=== PATIENT | female | born 1960 | race Caucasian/White ===

== ENCOUNTER 2023-02-04 08:44 | Outpatient (CLI) | payer BC, SELFPAY ==
--- NOTE | 2023-02-04 09:15 | CRLHL7_ITS ---
For Patients: As a result of the Century Cures Act, medical imaging exams and procedure reports are released immediately into your electronic medical record. You may view this report before your referring provider. If you have questions, please contact your health care provider. ULTRASOUND-GUIDED LEFT BREAST BIOPSY AND POST-BIOPSY MAMMOGRAM FOR CLIP PLACEMENT INDICATION: Mass upper outer quadrant LEFT breast. Ultrasound-guided biopsy for diagnostic purposes. Informed consent was obtained. Benefits and risks were discussed. Risks included pain, bleeding, infection, and the possibility of an unsuccessful or nondiagnostic biopsy. Post biopsy clip placement and post clip mammogram were also discussed with the patient. She agreed to proceed. [place] protocol was followed. TIME-OUT conducted just prior to starting procedure confirmed patient identity, site/side, procedure, patient position, and availability of correct equipment. Pause for cause was performed. The lesion is a 1.0 x 0.5 x 0.9 cm slightly lobulated somewhat oval-shaped hypoechoic solid mass at the 1 o`clock position 2 cm from the nipple. Utilizing sterile technique and 1 percent lidocaine for local anesthetic, a 14-gauge biopsy gun was utilized. Five passes were made into the lesion without difficulty. The patient tolerated the procedure well. No immediate complications. Subsequently, a clip was placed in the lesion after the five biopsies. A post procedure mammogram is pending. IMPRESSION: Technically successful ultrasound-guided biopsy of a lesion at the 1 o`clock position 2 cm from the nipple. No immediate complications. ACR not applicable Dictated by: Klaus Souza MD @02/04/2023 10:19:24 AM jj/Dictated by: Klaus Souza MD @ 02/04/2023 10:19:00 AM ----- ADDENDUM ----- The final pathology report demonstrates an invasive ductal carcinoma Kelsie grade III of III with a Kelsie score 8 of 9. The pathology report is concordant with the imaging findings. Dictated by Klaus Souza MD @ Feb 04 2023 10:19AM Signed by:?Klaus Souza MD @02/04/2023 11:08:09 AM (Electronically Signed)
--- NOTE | 2023-02-04 10:00 | CRLHL7_ITS ---
For Patients: As a result of the Cures Act, medical imaging exams and procedure reports are released immediately into your electronic medical record. You may view this report before your referring provider. If you have questions, please contact your health care provider. POST-BIOPSY MAMMOGRAM FOR CLIP PLACEMENT INDICATION: Follow-up LEFT breast biopsy. Clip placement. TECHNIQUE: Unilateral LEFT breast mammogram performed utilizing a CC and true ML view. FINDINGS: Breast Composition: There are areas of scattered fibroglandular density. In the upper outer quadrant of the LEFT breast 1 o`clock position 2 cm from the nipple is a lesion with a biopsy clip placed in the center of the lesion. IMPRESSION: LEFT biopsy clip placement. ACR not applicable Dictated by: Klaus Souza MD @02/04/2023 10:20:22 AM jj/Dictated by: Klaus Souza MD @ 02/04/2023 10:20:00 AM (Electronically Signed)
== END 2023-02-04 08:45 | disposition home or self-care (01) ==
LOC: US 08:47
PROVIDERS: PCP Family Medicine; Visit Provider Family Medicine
DX: C50.912 Malignant neoplasm of unspecified site of left female breast (principal); N63.20 Unspecified lump in the left breast, unspecified quadrant; R92.8 Other abnormal and inconclusive findings on diagnostic imaging of breast
CPT/HCPCS: 19083; 77065; 88305; 88341; 88342; 88360; 88361; A4648; A4649

== ENCOUNTER 2023-02-11 09:48 | Outpatient (CLI) | payer BC, SELFPAY ==
--- NOTE | 2023-02-11 10:15 | CRLHL7_ITS ---
For Patients: As a result of the Century Cures Act, medical imaging exams and procedure reports are released immediately into your electronic medical record. You may view this report before your referring provider. If you have questions, please contact your health care provider. BILATERAL BREAST MRI WITHOUT AND WITH GADOLINIUM CLINICAL HISTORY: Malignant neoplasm LEFT breast. INDICATION FOR BREAST MRI: Staging of newly diagnosed breast cancer and screening of contralateral breast. Regional lymph nodes will also be assessed. COMPARISON STUDIES: 01/23/2023 mammogram, 01/28/2023 LEFT breast diagnostic mammogram and ultrasound ultrasound-guided biopsy and post clip films 02/04/2023. CONTRAST: Dotarem 15 mL. TECHNIQUE: The patient was positioned prone using a breast coil. Multiple imaging sequences were obtained using 1-1.5 mm thick slices with no gap. The image sequences include T2-weighted STIR in the axial plane, T1-weighted nonfat-saturated gradient echo in the axial plane, pre- and post-contrast T1-weighted FLASH 3D with fat suppression in the axial plane, and T1-weighted FLASH high resolution 3D with fat suppression in the sagittal plane. Image post-processing was performed on a [employer] workstation. Complex 3D rendering including maximum intensity projections (MIPS) and volumetric renderings were obtained to optimize visualization of the extent of pathology and relationship to the nipple, skin, and chest wall. This aids in determining feasibility of breast conservation surgery. Subtraction, multiplanar reconstruction, mean curve determination, and angiogenesis mapping were also performed. The study was technically adequate. FINDINGS: Amount of Fibroglandular Tissue: Scattered fibroglandular. Breast Background Enhancement: Minimal. RIGHT Breast: No suspicious mass or non-mass enhancement. LEFT Breast: New breast cancer visualized as a 1 o`clock position, anterior depth, solid irregular mass containing marker clip placed at biopsy. Measurement 1 x 0.8 x 1 cm in size. The remainder of the left breast is negative. Lymph Nodes: No enlarged lymph nodes. IMPRESSIONS AND RECOMMENDATIONS: New breast cancer on MR correlates with mammogram and ultrasound. In the LEFT breast at 1 o`clock position, anterior depth the cancer is identified as an enhancing mass measurement 1 x 0.8 x 1 cm size. Marker clip visualized within the mass. The RIGHT breast is negative. No enlarged lymph nodes. BI-RADS Category 6: Known biopsy-proven malignancy Dictated by Kimber Ge MD @ 02/12/2023 3:31:39 PM juice/Dictated by: Kimber Ge MD @ 02/12/2023 3:31:00 PM (Electronically Signed)
== END 2023-02-11 09:49 | disposition home or self-care (01) ==
LOC: MRI 09:50
PROVIDERS: PCP Family Medicine; Visit Provider Surgery
DX: C50.912 Malignant neoplasm of unspecified site of left female breast (principal)
CPT/HCPCS: 77049; A9575

== ENCOUNTER 2023-02-27 05:57 | Day surgery (SDC) | payer BC, SELFPAY ==
[2023-02-27] MEDS: LACTATED RINGERS 1000 ML 1,000 ML 100 ML IV (06:25)
[2023-02-27] MEDS: SODIUM CHLORIDE 0.9 % (FLUSH) 10 ML SYRINGE IVF (06:34)
[2023-02-27 06:35] VITALS: BP 129/79; PULSE 70; RESP 16; TEMP 36.6; O2SAT 95; BMI 30.5
[2023-02-27 06:43] LABS: Basophils Absolute Auto 0.03 K/uL (0.00-0.30); Basophils Percent Auto 0.4 % (0.0-3.0); Eosinophils Absolute Auto 0.29 K/uL (0.00-0.50); Eosinophils Percent Auto 3.8 % (0.0-7.0); Hematocrit 42.9 % (33.0-51.0); Immature Granulocytes Abs Auto 0.01 K/uL (0.00-0.30); Immature Granulocytes Pct Auto 0.1 %; Lymphocytes Absolute Auto 2.83 K/uL (0.90-2.90); Lymphocytes Percent Auto 37.1 % (20-44); Mean Corpuscular HGB Conc 33 gm/dL (32-36); Mean Corpuscular Hemoglobin 31 pg (26-34); Mean Corpuscular Volume 96 fL (80-100); Monocytes Percent Auto 7.3 % (0.0-11.0); Neutrophils Percent Auto 51.3 % (42.0-72.0); Platelet Count* 221 K/uL (140-440); RDW Coefficient of Variation % 12.5 % (11.5-15.5); Red Blood Count 4.47 m/uL (4.00-5.20); White Blood Count* 7.62 K/uL (4.50-11.00)
[2023-02-27 06:47] LABS: Slide Review Reflex No
[2023-02-27 07:09] LABS: Chloride* 103 mmol/L (96-114)
[2023-02-27 07:10] LABS: Albumin* 4.3 g/dL (3.3-5.0); Sodium* 139 mmol/L (135-149)
[2023-02-27 07:13] LABS: Alanine Aminotransferase* 18 U/L (4-35); Alkaline Phosphatase* 67 U/L (40-150); Aspartate Amino Transferase* 24 U/L (12-35); Bilirubin Total* 0.3 mg/dL (0.1-1.5); Blood Urea Nitrogen* 16 mg/dL (7-30); Calcium* 9.1 mg/dL (8.4-10.6); Carbon Dioxide* 29 mmol/L (20-32); Creatinine* 0.7 mg/dL (0.5-1.5); Est. Creatinine Clearance* 53.91; Estimated Glomerular Filt Rate 97 ml/min; Glucose* 108 mg/dL (60-115); Total Protein* 7.3 g/dL (6.0-8.3)
--- NOTE | 2023-02-27 07:18 | W.ANESCHARGE ---
Anesthesia Charges Start Date/Time Anesthesia Start Date: 02/27/23 Anesthesia Start Time: 07:22 Stop Date/Time Anesthesia Stop Date: 02/27/23 Anesthesia Stop Time: 08:24
[2023-02-27] MEDS: CEFAZOLIN 2 GM INJ IVP (07:23)
--- NOTE | 2023-02-27 07:30 | CRLHL7_ITS ---
For Patients: As a result of the Century Cures Act, medical imaging exams and procedure reports are released immediately into your electronic medical record. You may view this report before your referring provider. If you have questions, please contact your health care provider. Indication: Port placement Technique: AP fluoroscopic image of the right upper chest. Fluoroscopic time 29.7 seconds. IMPRESSION: Fluoroscopic guided port placement. Dictated by Arnulfo Briceno MD @ 02/27/2023 8:51:25 AM (Electronically Signed)
[2023-02-27] MEDS: LIDOCAINE 1 % PF 30 ML INJECTION (07:40)
[2023-02-27] MEDS: BUPIVACAINE 0.5% 30 ML INJECTION (07:40)
[2023-02-27] MEDS: 0.9 % SODIUM CHLORIDE 50 ml INJECTION (07:53)
[2023-02-27] MEDS: HEPARIN 500 UNIT/5 ML SYRINGE IVF (08:05)
--- NOTE | 2023-02-27 08:15 | CRLHL7_ITS ---
For Patients: As a result of the Century Cures Act, medical imaging exams and procedure reports are released immediately into your electronic medical record. You may view this report before your referring provider. If you have questions, please contact your health care provider. INDICATION: POST PORT PLACEMENT TECHNIQUE: Chest 1 view COMPARISON: None FINDINGS: Right-sided Port-A-Cath is present with the tip in the mid SVC. No pneumothorax. Lungs clear. IMPRESSION: Placement of Port-A-Cath without pneumothorax. Dictated by Arnulfo Briceno MD @ 02/27/2023 8:57:41 AM (Electronically Signed)
--- NOTE | 2023-02-27 08:20 | PM.GSPRC ---
Operative Note Date of procedure: 02/27/23 Pre-op diagnosis: Invasive ductal carcinoma, left breast Post-op diagnosis: Same Type of Procedure: Right internal jugular port a catheter placement Indications: Patient is a 62-year-old female with new diagnosis invasive ductal carcinoma. She had a consultation with Oncology, who recommended a course of chemotherapy. Risks and benefits of port a catheter placement were discussed at length with the patient. Risks included, but were not limited to: Bleeding, infection, risk of damage to surrounding structures and possible need for additional procedures. All questions and concerns were addressed with patient agreeing to proceed. Procedure Description: After discussing the risks and benefits of the procedure, the patient signed informed consent.? The operative site was marked and the patient was brought to the operating room and placed on the operating table in supine position.? Care was taken to pad the patient's pressure points.?? The patient was then sedated by anesthesia.?? The operative site was then prepped and draped in the usual sterile fashion.? A time-out was then performed. The patient's right internal jugular vein was visualized using ultrasound. Local anesthetic was injected into the neck skin above the vein. A small skin aissatou was made with an 11 blade. The vein was accessed percutaneously via Seldinger technique using ultrasound guidance. Next local anesthetic was injected into the skin below the clavicle and along the proposed tract to the neck incision. A skin incision was then made with a 15 blade and a pocket created in the chest wall with cautery. A tunneler was then used to thread the catheter from the chest wall pocket to the neck incision. Once this was done fluoroscopy was brought into the field. Over the wire the tract was dilated using fluoroscopy. The wire and the dilator were then removed leaving the sheath intact in the vein. Through this the catheter was threaded. Using fluoroscopy the catheter was positioned into the distal SVC. The catheter was noted to flush and aspirate easily. The catheter was then connected to the port. The port was placed in the pocket and secured in place with two 2 0 Prolene stay suture. It was noted to flush and aspirate easily. This was then locked with heparinized saline. The skin was closed with absorbable suture. Sterile dressings were applied. Instrument sponge and needle counts were correct at the end of the case. The patient was woken and taken to the PACU in stable condition. Findings: Compressible right internal jugular vein. Anesthesia: MAC and local Surgeon: Enedina Infante MD Estimated blood loss (mL): 5 Condition: stable Disposition: same day
[2023-02-27 08:27] VITALS: BP 132/76; PULSE 74; RESP 16; TEMP 36.3; O2SAT 96
--- NOTE | 2023-02-27 08:28 | W.ANESCHARGE ---
Anesthesia Charges Start Date/Time Anesthesia Start Date: 02/27/23 Anesthesia Start Time: 07:22 Stop Date/Time Anesthesia Stop Date: 02/27/23 Anesthesia Stop Time: 08:24
[2023-02-27 08:45] VITALS: BP 130/72; PULSE 70; RESP 16; O2SAT 96
[2023-02-27 09:00] VITALS: BP 131/73; PULSE 72; RESP 16; O2SAT 96
== END 2023-02-27 09:04 | disposition home or self-care (01) ==
PROVIDERS: Internal Medicine Hematology & Oncology; PCP Family Medicine; Visit Provider Surgery
PROC: (CPT 36561; principal; 2023-02-27 07:30)
DX: Z45.2 Encounter for adjustment and management of vascular access device (principal); C50.912 Malignant neoplasm of unspecified site of left female breast; Z17.1 Estrogen receptor negative status [ER-]
CPT/HCPCS: 36561; 00532; 36415; 71045; 80053; 85025; C1788; J0665; J0690; J1642; J2001; J2250; J2704; J3010; J3490; J7120

== ENCOUNTER 2023-06-12 06:34 | Day surgery (SDC) | payer BC, SELFPAY ==
[2023-06-12] MEDS: SODIUM CHLORIDE 0.9 % (FLUSH) 10 ML SYRINGE IVF (07:29)
--- NOTE | 2023-06-12 08:00 | CRLHL7_ITS ---
For Patients: As a result of the Century Cures Act, medical imaging exams and procedure reports are released immediately into your electronic medical record. You may view this report before your referring provider. If you have questions, please contact your health care provider. SENTINEL LYMPH NODE LOCALIZATION INJECTION CLINICAL HISTORY: Left breast cancer LATERALITY: Left breast TECHNIQUE: With the patient supine, the periareolar left breast was cleansed with alcohol. 0.78mCi of 93b-[id number] Sulfur Colloid in a volume of 1 cc was injected intradermal in the upper outer periareolar breast with a 25-gauge needle. The patient tolerated the procedure well and there were no immediate complications. IMPRESSION: Injection for sentinel lymph node of the left breast. Dictated by Arnulfo Briceno MD @ 06/12/2023 2:53:53 PM (Electronically Signed)
--- NOTE | 2023-06-12 08:15 | CRLHL7_ITS ---
For Patients: As a result of the Century Cures Act, medical imaging exams and procedure reports are released immediately into your electronic medical record. You may view this report before your referring provider. If you have questions, please contact your health care provider. BREAST WIRE LOCALIZATION USING ULTRASOUND GUIDANCE CLINICAL HISTORY: LEFT breast cancer, presents for lumpectomy. LATERALITY: LEFT breast. LESION: Previously biopsied lesion 1 o`clock 2 cm from the nipple. LOCALIZATION WIRE: [place] hookwire. TECHNIQUE: The localization wire was placed using real-time ultrasound guidance with image documentation. Cranial-caudal and medial-lateral digital mammograms were obtained after localization wire placement. CONSENT and TIME OUT: The procedure, risks, and alternatives were explained to the patient and a consent was signed. [place] Protocol was followed including pre-procedure verification that relevant information/documentation was available, reviewed and properly matched to the patient; consent accurate and complete; and equipment and supplies available. Time Out was conducted just prior to starting procedure to verify the four required elements: patient identity, correct side/site marked (if applicable), procedure, relevant images/results properly labeled and displayed (if applicable). PROCEDURE: The skin was prepped with ChloraPrep and 3 cc of 1% lidocaine was injected for local anesthesia. The localization wire was placed within or near the targeted breast lesion using ultrasound guidance. The patient tolerated the procedure well. PROXIMITY OF WIRE TO LESION: Immediately adjacent to the biopsy clip which is located within the residual lesion. IMPRESSION: Successful breast wire localization. ACR not applicable Dictated by Arnulfo Briceno MD @ 06/12/2023 10:06:00 AM jj/Dictated by: Arnulfo Briceno MD @ 06/12/2023 10:05:00 AM (Electronically Signed)
[2023-06-12] MEDS: LACTATED RINGERS 1000 ML 1,000 ML 100 ML IV (08:50)
--- NOTE | 2023-06-12 09:00 | CRLHL7_ITS ---
For Patients: As a result of the Cures Act, medical imaging exams and procedure reports are released immediately into your electronic medical record. You may view this report before your referring provider. If you have questions, please contact your health care provider. PLEASE SEE ULTRASOUND-GUIDED WIRE LOCALIZATION PERFORMED SAME DAY CRL:juice boes/Dictated by: Arnulfo Briceno MD @ 06/12/2023 10:06:00 AM (Electronically Signed)
--- NOTE | 2023-06-12 09:30 | CRLHL7_ITS ---
For Patients: As a result of the Cures Act, medical imaging exams and procedure reports are released immediately into your electronic medical record. You may view this report before your referring provider. If you have questions, please contact your health care provider. LEFT BREAST SPECIMEN RADIOGRAPH CLINICAL HISTORY: LEFT breast lumpectomy, LEFT breast cancer. COMPARISON: 01/28/2023, 06/12/2023. FINDINGS: Two-views specimen submitted. Specimen contains the residual mass, the biopsy clip and the localization wire. IMPRESSION: Specimen contains the residual lesion, the biopsy clip and the localization wire. ACR not applicable Dictated by Arnulfo Briceno MD @ 06/12/2023 11:14:57 AM jj/Dictated by: Arnulfo Briceno MD @ 06/12/2023 11:14:00 AM (Electronically Signed)
[2023-06-12] MEDS: ISOSULFAN BLUE 5 ML VIAL INJECTION (10:14)
[2023-06-12] MEDS: CEFAZOLIN 2 GM INJ IVP (10:15)
--- NOTE | 2023-06-12 11:12 | W.ANESCHARGE ---
Anesthesia Charges Start Date/Time Anesthesia Start Date: 06/12/23 Anesthesia Start Time: 10:01 Stop Date/Time Anesthesia Stop Date: 06/12/23 Anesthesia Stop Time: 11:48
[2023-06-12] MEDS: BUPIVACAINE 0.25% 30 ML INJECTION (11:23)
--- NOTE | 2023-06-12 11:35 | P.GSOP_ITS ---
Operative Note Pre-op diagnosis: Invasive ductal carcinoma, left breast Post-op diagnosis: Same Type of Procedure: 1. Injection of radionucleotide tracer 2. Lumpectomy, left breast 3. Identification and removal of sentinel lymph node. Indications: Patient is a 63-year-old female with a diagnosed invasive ductal carcinoma of the left breast. Due to the pathologic characteristics of the tumor she initially underwent neoadjuvant treatment with chemotherapy. After the completion of her neoadjuvant treatment it was recommended that she pursue surgery. Different surgical options were reviewed with the patient, please see consultation for full discussion. Risks and benefits of operative intervention were discussed at length with the patient. Risks included but was not limited to: Bleeding, infection, risk of damage to surrounding structures, possible need for additional procedures, possibility of positive margins, lymphedema with removal of any axillary lymph nodes were injury to surrounding structures of the axilla and postoperative complications such as pneumonia, pulmonary emboli or NV. All questions and concerns were addressed with the patient agreeing to proceed. Procedure Description: Prior to arrival in the operating room, I injected the patient with a radionucleotide tracer in PACU. The patient was taken to radiology where a wire was placed to localize the previously placed clip. The patient was then brought to the operating room where anesthesia was induced. I injected 2 ml of lymphazurin blue and performed breast massage for a period of 5 minutes. The left breast and axilla were prepped and draped in the usual sterile fashion. Timeout was confirmed. Local anesthesia was infiltrated into a curvilinear incision in the 2:00 o clock position around the areola and near the location of the tip of the wire. Using electrocautery, the segment of breast tissue containing the tip of the wire was excised. This was sent for evaluation. Radiology imaging was performed and confirmed that the clip and wire were present within the specimen. Pathology then called back and confirmed that there was no presence of any residual tumor and margins were negative. We then elected to perform the sentinel node aspect of the procedure. Using the neoprobe, the area of maximal counts was identified. Local anesthesia was infiltrated into the skin and an incision was made. This was carried down to the subcutaneous tissue using electrocautery. Using a combination of blunt dissection and electrocautery, a hot and blue node was resected. The lymphatic pedicle was ligated with a 3-0 Vicryl tie. No additional nodes were identified. These were sent to pathology for permanent evaluation. The axillary wound was irrigated. Michael was placed within the axillary cavity. The wounds were then closed in layers using absorbable suture, and Dermbond was placed over the wounds. The patient was awakened without incident and taken to PACU in stable condition. Sponge, needle and instrument counts were correct x3 at the termination of the case. Findings: Wire localization of left breast cancer, clip and wire confirmed on radiologic imaging with margins negative. One sentinel lymph node identified and removed, sent for permanent evaluation. Anesthesia: MAC and local Surgeon: Enedina Infante MD Estimated blood loss (mL): 5 Additional Specimen Information: 1. Left breast lumpectomy 2. Left axillary sentinel node Disposition: PACU Date of procedure: 06/12/23 [place] Node Biopsy for Breast Cancer Operation Performed with Curative Intent: Yes Tracers used to Identify sentinel nodes in the upfront surgery (non-neoadjuvant) setting: N/A Tracers used to identify sentinel nodes in the neoadjuvant setting: Dye and Radioactive Tracer All nodes (colored or non-colored) present at the end of a dye filled lymphatic channel were removed: Yes All significantly radioactive nodes were removed: Yes All palpably suspicious nodes were removed: Yes Biopsy proven positive nodes marked with clips prior to chemotherapy were identified and removed: Not Applicable
[2023-06-12 11:45] VITALS: BP 136/75; PULSE 73; RESP 16; TEMP 36.4; O2SAT 94
[2023-06-12 12:00] VITALS: BP 148/76; PULSE 65; RESP 16; O2SAT 96
[2023-06-12] MEDS: ACETAMINOPHEN 325 MG TABLET 650 MG PO (12:00)
--- NOTE | 2023-06-12 12:07 | W.ANESCHARGE ---
Anesthesia Charges Start Date/Time Anesthesia Start Date: 06/12/23 Anesthesia Start Time: 10:01 Stop Date/Time Anesthesia Stop Date: 06/12/23 Anesthesia Stop Time: 11:48
[2023-06-12 12:14] VITALS: BP 148/76; PULSE 70; RESP 16; O2SAT 94
== END 2023-06-12 13:02 | disposition home or self-care (01) ==
PROVIDERS: PCP Family Medicine; Visit Provider Surgery
PROC: (CPT 19125; principal; 2023-06-12 09:30)
PROC: (CPT 19125; 2023-06-12 09:30)
DX: C50.912 Malignant neoplasm of unspecified site of left female breast (principal)
CPT/HCPCS: 19125; 38500; 00400; 01610; 19285; 38792; 77065; 88307; A9270; A9541; C1769; J0665; J0690; J1100; J1885; J2250; J2371; J2704; J3010; J3490; J7120

== ENCOUNTER 2023-06-30 14:14 | Outpatient (RCR) | payer BC, SELFPAY ==
--- NOTE | 2023-02-24 13:57 | URNOTE ---
Per [facility] on behalf of [employer], Prior auth is not required for Cyclophosphamide (J9070), Docetaxel (J9171), Palonosetron (J2469). Pegfilgrastim (J2506) has been approved 03/03/2023-05/26/2023 for 4 doses. Order/ref #[id number]
--- NOTE | 2023-02-24 14:30 | ONC.NURNOTE ---
I met with patient for chemotherapy teaching. Contents of the chemotherapy binder were reviewed. Side effects of TC+Neulasta discussed. Patient instructed on what to report and how to report concerns to provider. Patient verbalizes understanding of plan of care.
[2023-03-03 08:14] VITALS: BP 131/81; PULSE 73; RESP 16; TEMP 36.2; O2SAT 97
[2023-03-03] MEDS: PALONOSETRON 0.25 MG/5 ML inj IV (08:57)
[2023-03-03] MEDS: dexAMETHasone 20 MG in 0.9 % SODIUM CHLORIDE 100 ml 100 ML 408 MG IVPB (09:00)
[2023-03-04 11:17] VITALS: BP 120/73; PULSE 73; RESP 16; TEMP 36.1; O2SAT 96
[2023-03-04] MEDS: PEGFILGRASTIM 6 MG/0.6 ML SYRINGE SUBCUT (11:50)
--- NOTE | 2023-03-07 11:48 | ONC.NURNOTE ---
Pt LM reporting her mouth is coated white on tongue and roof of mouth and is stinging; she is concerned about oral thrush and is asking about Magic Mouthwash. Called pt back; in the meantime she had contacted her dentist, who prescribed Nystatin 100,000 units/ml, swish and spit 4-5 mL QID. Pt has started this and struggling to tolerate the taste, which is triggering nausea. Recommended pt take Prochlorperazine at least 30 min prior to dose to lower risk of nausea and to begin NaCl/NaCHO3 swishes at least QID. Reviewed home management of mucositis; she relays she is drinking 64oz/day fluids and is eating cottage cheese, eggs and toast with butter. Cautioned against sharp, spicy, acidic foods; referred to resources in new patient binder. Pt agreeable to this plan.
[2023-03-25 08:11] VITALS: BP 124/72; PULSE 78; RESP 16; TEMP 35.6; O2SAT 95
[2023-03-25 08:35] LABS: Basophils Absolute Auto 0.06 K/uL (0.00-0.30); Basophils Percent Auto 0.7 % (0.0-3.0); Eosinophils Absolute Auto 0.13 K/uL (0.00-0.50); Eosinophils Percent Auto 1.5 % (0.0-7.0); Hematocrit 36.2 % (33.0-51.0); Hemoglobin* 11.8 gm/dL (12.0-16.0); Immature Granulocytes Abs Auto 0.02 K/uL (0.00-0.30); Immature Granulocytes Pct Auto 0.2 %; Lymphocytes Absolute Auto 2.02 K/uL (0.90-2.90); Mean Corpuscular HGB Conc 33 gm/dL (32-36); Mean Corpuscular Hemoglobin 31 pg (26-34); Mean Corpuscular Volume 96 fL (80-100); Monocytes Percent Auto 8.5 % (0.0-11.0); Neutrophils Absolute Auto 5.48 K/uL (1.7-7.0); Neutrophils Percent Auto 65.1 % (42.0-72.0); Platelet Count* 342 K/uL (140-440); RDW Coefficient of Variation % 13.3 % (11.5-15.5); Red Blood Count 3.76 m/uL (4.00-5.20); White Blood Count* 8.43 K/uL (4.50-11.00)
[2023-03-25 08:43] LABS: Slide Review Reflex No
[2023-03-25 08:47] LABS: Albumin* 3.9 g/dL (3.3-5.0)
[2023-03-25 08:48] LABS: Chloride* 107 mmol/L (96-114); Potassium* 3.8 mmol/L (3.6-5.1); Sodium* 138 mmol/L (135-149)
[2023-03-25 08:50] LABS: Aspartate Amino Transferase* 24 U/L (12-35); Bilirubin Total* 0.3 mg/dL (0.1-1.5); Carbon Dioxide* 24 mmol/L (20-32); Creatinine* 0.6 mg/dL (0.5-1.5); Estimated Glomerular Filt Rate 101 ml/min; Total Protein* 6.4 g/dL (6.0-8.3)
[2023-03-25 08:51] LABS: Alanine Aminotransferase* 22 U/L (4-35); Alkaline Phosphatase* 66 U/L (40-150); Blood Urea Nitrogen* 15 mg/dL (7-30); Calcium* 8.8 mg/dL (8.4-10.6); Glucose* 92 mg/dL (60-115)
[2023-03-25] MEDS: GRANISETRON 1 MG/ML inj IVP (10:52)
[2023-03-25] MEDS: dexAMETHasone 20 MG in 0.9 % SODIUM CHLORIDE 100 ml 100 ML 408 MG IVPB (11:07)
[2023-03-25] MEDS: FAMOTIDINE 10 MG/ML inj 20 MG IVP (11:08)
--- NOTE | 2023-03-25 16:11 | ONC.NURNOTE ---
Pt here for C2D1 TC; saw Richa Carcamo APRN as scheduled. Pt had complex nausea; plan as follows: Premeds: Kytril given instead of Aloxi; pushed slowly. Pt had brief MARIANO but self-resolved in minutes. Dexamethasone as previously ordered. Added Famotidine 20mg IVP. At home for nausea: Compazine 5 mg before meals/up to q3hrs throughout daytime, as Compazine 10 mg had too many side effects and wore off too quickly. Cont x 4 days, then proceed as needed. Per pt, avoiding Zofran d/t migraine history/triggers. Add Famotidine daily in AM; reviewed to take on empty stomach with glass of water; ok to add additional evening dose 30 min before supper. Instructed pt to contact us if feeling GERD symptoms for consideration of additional anti-acid meds. Add Olanzapine @[facility] x 4 nights beginning night of chemo; pt to try 2.5-5mg per preference; reviewed to avoid using Lorazepam at some time. Following conclusion of Olanzapine, plan to resume Lorazepam @[facility] as needed. Add Dexamethasone PO BID beginning day after chemo x 3 days; instructed to take with food to minimize GI side effects. At home for bone aches r/t Neulasta: Continue Claritin and Tylenol daily x ~2 weeks, as pt noted worst bone aches in week 2 after chemo last cycle. Calendar made with these instructions; copy in chart. Reinforced that if pt is having nausea to the point of not eating or having emesis/retching, or if having severe bone aches, to call [facility] for assessment of dehydration and consideration of benefit of IV fluids; discuss with Richa Carcamo APRN on a situational basis.
[2023-03-26 13:30] VITALS: BP 95/58; PULSE 69; RESP 16; TEMP 36.2; O2SAT 95
[2023-03-26] MEDS: PEGFILGRASTIM 6 MG/0.6 ML SYRINGE SUBCUT (13:32)
--- NOTE | 2023-03-28 09:46 | ONC.NURNOTE ---
Pt called to check in. She is feeling well and denies nausea or thrush. She took anti-emetics as scheduled Fri and . She had some constipation that is resolving. She is taking Pepcid, Claritin and Tylenol. She will call early next week to check-in to assess side effects.
[2023-04-15 07:54] VITALS: BP 113/69; PULSE 70; RESP 16; TEMP 35.7
[2023-04-15 08:18] LABS: Basophils Absolute Auto 0.06 K/uL (0.00-0.30); Basophils Percent Auto 0.8 % (0.0-3.0); Eosinophils Absolute Auto 0.07 K/uL (0.00-0.50); Eosinophils Percent Auto 0.9 % (0.0-7.0); Hematocrit 34.2 % (33.0-51.0); Hemoglobin* 10.9 gm/dL (12.0-16.0); Immature Granulocytes Abs Auto 0.01 K/uL (0.00-0.30); Immature Granulocytes Pct Auto 0.1 %; Lymphocytes Absolute Auto 1.75 K/uL (0.90-2.90); Lymphocytes Percent Auto 22.1 % (20-44); Mean Corpuscular HGB Conc 32 gm/dL (32-36); Mean Corpuscular Hemoglobin 32 pg (26-34); Mean Corpuscular Volume 99 fL (80-100); Monocytes Percent Auto 8.2 % (0.0-11.0); Neutrophils Absolute Auto 5.39 K/uL (1.7-7.0); Neutrophils Percent Auto 67.9 % (42.0-72.0); Platelet Count* 282 K/uL (140-440); RDW Coefficient of Variation % 14.9 % (11.5-15.5); Red Blood Count 3.44 m/uL (4.00-5.20); White Blood Count* 7.93 K/uL (4.50-11.00)
[2023-04-15 08:23] LABS: Slide Review Reflex No
[2023-04-15 08:37] LABS: Albumin* 3.7 g/dL (3.3-5.0); Chloride* 106 mmol/L (96-114)
[2023-04-15 08:38] LABS: Sodium* 137 mmol/L (135-149)
[2023-04-15 08:40] LABS: Anion Gap 5 mEq/L (7-15); Aspartate Amino Transferase* 22 U/L (12-35); Bilirubin Total* 0.4 mg/dL (0.1-1.5); Carbon Dioxide* 26 mmol/L (20-32); Creatinine* 0.5 mg/dL (0.5-1.5); Estimated Glomerular Filt Rate 105 ml/min; Total Protein* 6.3 g/dL (6.0-8.3)
[2023-04-15 08:41] LABS: Alanine Aminotransferase* 18 U/L (4-35); Alkaline Phosphatase* 72 U/L (40-150); Blood Urea Nitrogen* 13 mg/dL (7-30); Calcium* 8.6 mg/dL (8.4-10.6); Glucose* 95 mg/dL (60-115)
[2023-04-15] MEDS: GRANISETRON 1 MG/ML inj IVP (09:10)
[2023-04-15] MEDS: dexAMETHasone 20 MG in 0.9 % SODIUM CHLORIDE 100 ml 100 ML 408 MG IVPB (09:10)
[2023-04-15] MEDS: FAMOTIDINE 10 MG/ML inj 20 MG IVP (09:53)
[2023-04-16 14:50] VITALS: BP 112/65; PULSE 82; RESP 16; TEMP 35.7; O2SAT 96
[2023-04-16] MEDS: PEGFILGRASTIM 6 MG/0.6 ML SYRINGE SUBCUT (15:19)
[2023-05-05 09:11] LABS: Basophils Percent Auto 0.5 % (0.0-3.0); Eosinophils Percent Auto 0.3 % (0.0-7.0); Hematocrit 34.4 % (33.0-51.0); Hemoglobin* 11.1 gm/dL (12.0-16.0); Immature Granulocytes Pct Auto 0.3 %; Lymphocytes Percent Auto 20.2 % (20-44); Mean Corpuscular HGB Conc 32 gm/dL (32-36); Mean Corpuscular Hemoglobin 32 pg (26-34); Mean Corpuscular Volume 99 fL (80-100); Monocytes Percent Auto 7.9 % (0.0-11.0); Neutrophils Percent Auto 70.8 % (42.0-72.0); Platelet Count* 323 K/uL (140-440); RDW Coefficient of Variation % 15.6 % (11.5-15.5); Red Blood Count 3.48 m/uL (4.00-5.20); White Blood Count* 11.59 K/uL (4.50-11.00)
[2023-05-05 09:23] LABS: Slide Review Reflex No
[2023-05-05 09:29] LABS: Chloride* 104 mmol/L (96-114); Potassium* 4.1 mmol/L (3.6-5.1); Sodium* 137 mmol/L (135-149)
[2023-05-05 09:31] LABS: Anion Gap 6 mEq/L (7-15); Aspartate Amino Transferase* 26 U/L (12-35); Bilirubin Total* 0.3 mg/dL (0.1-1.5); Carbon Dioxide* 27 mmol/L (20-32); Creatinine* 0.6 mg/dL (0.5-1.5); Estimated Glomerular Filt Rate 101 ml/min
[2023-05-05 09:32] LABS: Alanine Aminotransferase* 18 U/L (4-35); Alkaline Phosphatase* 76 U/L (40-150); Blood Urea Nitrogen* 15 mg/dL (7-30); Calcium* 9.6 mg/dL (8.4-10.6); Glucose* 97 mg/dL (60-115)
[2023-05-06 07:56] VITALS: BP 99/64; PULSE 83; RESP 16; TEMP 35.8; O2SAT 96
[2023-05-06] MEDS: GRANISETRON 1 MG/ML inj IVP (08:17)
[2023-05-06] MEDS: dexAMETHasone 20 MG in 0.9 % SODIUM CHLORIDE 100 ml 100 ML 408 MG IVPB (08:17)
[2023-05-06] MEDS: FAMOTIDINE 10 MG/ML inj 20 MG IVP (08:17)
[2023-05-07 13:01] VITALS: BP 101/58; PULSE 86; RESP 18; TEMP 36.4; O2SAT 95
[2023-05-07] MEDS: PEGFILGRASTIM 6 MG/0.6 ML SYRINGE SUBCUT (13:03)
== END 2023-08-19 23:59 | disposition home or self-care (01) ==
LOC: CCIC 14:14
PROVIDERS: Clinical Nurse Specialist; PCP Family Medicine; Referring Provider Family Medicine; Visit Provider Internal Medicine Hematology & Oncology
DX: C50.912 Malignant neoplasm of unspecified site of left female breast (principal); Z17.1 Estrogen receptor negative status [ER-]
CPT/HCPCS: 36415; 36591; 80053; 85025; 96372; 96376; 96411; 96413; 96415; 96417; 99202; 99205; 99211; 99212; 99214; 99215; J2506; J9070; J1100; J1626; J2469; J7050; J9171; S0028

== ENCOUNTER 2023-12-08 09:50 | Outpatient (RCR) | payer BC, SELFPAY | END 2024-02-16 23:59 | disposition home or self-care (01) | LOC: CCIC 09:50 | PROVIDERS: PCP Family Medicine; Referring Provider Family Medicine; Visit Provider Physician Assistant | DX: C50.912 Malignant neoplasm of unspecified site of left female breast (principal); Z17.1 Estrogen receptor negative status [ER-] | CPT/HCPCS: 99213; G0463 ==

== ENCOUNTER 2023-12-18 10:51 | Inpatient (IN) | payer BC, SELFPAY ==
[2023-12-18] VITALS (10 sets, daily range): BP systolic 121–147; BP diastolic 51–76; PULSE 76–105; RESP 12–24; TEMP 36.5–37.6; O2SAT 90–96; BMI 29.8; BMI 29.5
--- NOTE | 2023-12-18 11:06 | ED_ITS ---
HPI - Fever General Time Seen by Provider: 11:07 Date Seen: 12/18/23 Chief Complaint: Fever Stated Complaint: Fever, congested for a week Time Seen by Provider: 12/18/23 11:06 Source: patient Mode of arrival: ambulatory Limitations: no limitations History of Present Illness HPI Narrative: Audrey is a 63-year-old female with history of breast cancer status post ra diation and chemotherapy, multiple medication allergies who comes to the emergency room for evaluation of ongoing cough and fever x1 week. Patient notes the onset of a productive cough, runny nose and fever 1 week ago. Since that time she has had continued fever and last night and noted that it was 103.4 orally and this morning 102. She has also had associated diarrhea. She denies dysuria or vomiting. She has not been able to take a lot p.o. and has no appetite. She has not had a sore throat. She denies history of lung disease, tobacco use or COPD. She denies any chest pain. Patient notes that she has seems somewhat confused. Her family has told her this and she states that she noticed this when she was trying to text somebody. Nursing notes that O2 sats were at 88% in triage transiently but then with some deep breathing improved to 92%. Related Data Home Medications Medication Instructions Recorded Confirmed cholecalciferol (vitamin D3) 10 See Rx Instructions PO QDAY 02/20/23 12/18/23 mcg (400 unit) tablet acetaminophen 500 mg tablet 500 mg PO Q6H PRN 06/30/23 12/18/23 (Tylenol Extra Strength) Allergies Allergy/AdvReac Type Severity Reaction Status Date / Time ciprofloxacin Allergy Mild Joint Pain Verified 12/08/23 09:47 nickel Allergy Mild Hives Verified 12/08/23 09:47 Sulfa (Sulfonamide Allergy Mild Nausea Verified 12/08/23 09:47 Antibiotics) zolpidem [From Ambien] Allergy Mild Headache Verified 12/08/23 09:47 sodium lauryl sulfate Allergy Unknown Verified 12/08/23 09:47 Streptococcus vaccine Allergy Unknown Verified 12/08/23 09:47 adhesive Allergy Verified 12/08/23 09:47 copper Allergy Verified 12/08/23 09:47 Penicillins Allergy Hives Verified 12/08/23 09:47 ondansetron [From Zofran] AdvReac Severe Headache Verified 04/22/24 09:47 gluten AdvReac Mild Verified 12/08/23 09:47 sumatriptan [From Imitrex] AdvReac Mild Verified 12/08/23 09:47 Review of Systems Status of ROS Reports: 10 or more systems reviewed and unremarkable except as noted in History and below Const Reports: fever, chills and fatigue Eyes Denies: change in vision ENMT Reports: nasal discharge; Denies: throat pain, neck pain, throat swelling or hoarseness Cardio Reports: shortness of breath with exertion; Denies: chest pain Resp Reports: shortness of breath and cough; Denies: wheezing GI Reports: diarrhea; Denies: abdominal pain, vomiting or blood in stool Denies: painful urination Musculo Denies: neck pain Integ/Breast Denies: rash Neuro Denies: headache Endo Reports: fatigue Allergy/Immuno Denies: throat swelling or wheezing PFSH PFSH Medical History Breast cancer ?C50.919 - Malignant neoplasm of unspecified site of unspecified female breast (ICD-10) Depression ?F32.A - Depression, unspecified (ICD-10) Allergic rhinitis ?J30.9 - Allergic rhinitis, unspecified (ICD-10) Surgical History S/P section ?Z98.891 - History of uterine scar from previous surgery (ICD-10) S/P renetta ?Z90.49 - Acquired absence of other specified parts of digestive tract (ICD- 10) Social History Smoking Status: Former smoker How often do you have a drink containing alcohol: never AUDIT-C Alcohol total score: 0 Non-prescribed substance use: denies use Caffeine: Yes Are you using contraception or practicing any form of control: No Exam Narrative Exam Narrative: Patient is alert and oriented. EOM is full and clear. Face is symmetrical. Speech and mentation is normal. Oral cavity with moist mucous membranes. No rhinitis. Neck is supple without lymphadenopathy. Heart with a tachycardic rate but normal rhythm. I do not auscultate murmur. Lungs are with decreased breath sounds in the bases right greater than left. Few crackles noted especially on the right. Abdomen is soft and nontender. Lower extremities without edema. No calf tenderness. Moving all extremities normally Const Vital Signs, click to edit/add: Vital Signs - 24 hr 12/18/23 10:59 Temperature 97.7 F Pulse Rate [Pulse Oximeter] 105 H Respiratory Rate 12 Blood Pressure [Right Upper Arm] 121/72 Pulse Oximetry 92 Oxygen Delivery Method Room Air Documenting provider has reviewed patient's vital signs: yes Course Course ED Course: Differential diagnosis includes but is not limited to pneumonia, viral infection such as COVID influenza or RSV, congestive heart failure, PE, stroke. This time will place IV give 1 L of normal saline as well as draw blood for CBC, comprehensive panel, lactate, blood culture, CRP, procalcitonin. Will also check checks x-ray continues oximetry, EKG and troponin. Reevaluation(s) Reevaluation #1: Patient noted to have pneumonia on chest x-ray. White count elevated at almost 15,000 and procalcitonin 2.24. Lactate fortunately is within normal limits. Patient is given normal saline and I did have discussion about antibiotic use in this patient. Patient has allergy to penicillins which cause hives. An allergy to Streptococcus. Cipro and sulfa. Patient could not remember her allergy to sulfa but appears to be nausea in her chart. In regards to Cipro she states that she will never take it again and joint pain is listed. In regards to penicillin allergy she states that she was given penicillin daily for 5 years as a child after she had developed hives and a ?country doctor? attributed to rheumatic fever. No history of anaphylaxis. Therefore I did explain we would that we will use Rocephin a 3rd generation cephalosporin as well as Zithromax for treatment of her pneumonia. Reevaluation #2: Discussed this case with PAU Ledezma, hospitalist on duty today. At this time patient has elevated procalcitonin, leukocytosis as well as elevated CRP. She is likely dealing with a bacterial pneumonia. Legionella and strep pneumo tests are pending. Applying 1 L of oxygen to see if this gives her some symptomatic improvement although she is not below 90%. Note D-dimer minimally elevated at 0.54. Patient is 63 years old and therefore I do not think that this is significantly elevated. She has no calf tenderness or history of DVT. Continued monitoring and CT of the chest recommended if she is not improving. Vital Signs Vital signs: Initial Vital Signs Temperature 97.7 F 12/18/23 10:59 Temperature Source Temporal Artery Scan 12/18/23 10:59 Pulse Rate 105 H 12/18/23 10:59 Pulse Rhythm Regular 12/18/23 10:59 Respiratory Rate 12 12/18/23 10:59 Blood Pressure 121/72 12/18/23 10:59 Blood Pressure Mean 88 12/18/23 10:59 Blood Pressure Position Sitting 12/18/23 10:59 Pulse Oximetry 92 12/18/23 10:59 Oxygen Delivery Method Room Air 12/18/23 10:59 Vital Signs Temperature 97.7 F 12/18/23 10:59 Pulse Rate 105 H 12/18/23 10:59 Respiratory Rate 12 12/18/23 10:59 Blood Pressure 121/72 12/18/23 10:59 Pulse Oximetry 92 12/18/23 10:59 Oxygen Delivery Method Room Air 12/18/23 10:59 Temperature 97.7 F 12/18/23 10:59 Pulse Rate 105 H 12/18/23 10:59 Respiratory Rate 12 12/18/23 10:59 Blood Pressure 121/72 12/18/23 10:59 Pulse Oximetry 92 12/18/23 10:59 Oxygen Delivery Method Room Air 12/18/23 10:59 Medications Administered Medications: Discontinued Medications Generic Name Dose Route Start Last Admin Trade Name Freq PRN Reason Stop Dose Admin Azithromycin 500 mg 12/18/23 13:04 12/18/23 13:14 Azithromycin 250 Mg Tablet PO 12/18/23 13:05 500 mg ONCE ONE Administration Sodium Chloride 1,000 mls @ 1,000 mls/hr 12/18/23 11:24 12/18/23 11:45 0.9 % Sodium Chloride 1000 Ml IV 12/18/23 12:23 1,000 mls/hr .Q1H JULIÁN Administration Ceftriaxone Sodium 1 gm/ 100 mls @ 200 mls/hr 12/18/23 13:04 12/18/23 13:15 Sodium Chloride IVPB 12/18/23 13:05 200 mls/hr ONCE ONE Administration MDM - Fever MDM Narrative Medical decision making narrative: 1. Pneumonia -Rocephin 1 g IV and Zithromax 500 mg p.o.. 1 L of oxygen as patient has had some confusion and transiently O2 sats at 88% upon arrival. At rest O2 sats 91-92%. Triple swab negative. Chest x-ray positive for pneumonia. Multiple antibiotic allergies listed. If not improving plan is to CT chest with elevated procalcitonin and CRP being concerning. While D-dimer some minimally elevated I do not think this is PE given the chest x-ray findings, fever and symptoms. However, if not improving patient will be receiving CT. 2. Mild hypoxia-transient 88% upon arrival. Has been at 92% in bed. Troponin negative and EKG shows nonspecific T-wave changes but no significant concerns. Patient denies chest pain. 2. Disposition-admission under the care of hospitalist Alejandra at this time. Medical Records Attestation: I reviewed the patient's medical records. Lab Data Attestation: I reviewed the patient's lab results. Labs: Lab Results 12/18/23 12/18/23 Range/Units 11:05 11:55 WBC 14.90 H (4.50-11.00) K/uL RBC 4.29 (4.00-5.20) m/uL Hgb 13.8 (12.0-16.0) gm/dL Hct 41.7 (33.0-51.0) % MCV 97 (80-100) fL MCH 32 (26-34) pg MCHC 33 (32-36) gm/dL RDW Coeff of Chayo 13.0 (11.5-15.5) % Plt Count 153 (140-440) K/uL Neut % (Auto) 78.6 H (42.0-72.0) % Lymph % (Auto) 15.8 L (20-44) % [place] % (Auto) 5.4 (0.0-11.0) % Eos % (Auto) 0.0 (0.0-7.0) % Baso % (Auto) 0.1 (0.0-3.0) % Neut # (Auto) 11.70 H (1.7-7.0) K/uL Lymph # (Auto) 2.40 (0.90-2.90) K/uL [place] # (Auto) 0.80 (0.00-0.90) K/UL Eos # (Auto) 0.00 (0.00-0.50) K/uL Baso # (Auto) 0.00 (0.00-0.30) K/uL Abs Immat Gran (auto) 0.00 (0.00-0.30) K/uL Imm/Tot Granulo (auto) 0.1 % D-Dimer Quant (PE/DVT) 0.54 H (0.00-0.50) ug/ml Sodium 136 (135-149) mmol/L Potassium 3.8 (3.6-5.1) mmol/L Chloride 102 (96-114) mmol/L Carbon Dioxide 28 (20-32) mmol/L Anion Gap 6 L (7-15) mEq/L BUN 28 (7-30) mg/dL Creatinine 0.8 (0.5-1.5) mg/dL Estimated Creat Clear 55.27 Estimated GFR 82 ml/min Glucose 115 (60-115) mg/dL Lactate 1.8 (0.5-1.9) mmol/L Calcium 8.8 (8.4-10.6) mg/dL Total Bilirubin 0.7 (0.1-1.5) mg/dL AST 29 (12-35) U/L ALT 22 (4-35) U/L Alkaline Phosphatase 67 (40-150) U/L Troponin I 0.04 (0.01-0.04) ng/mL C-Reactive Protein 33.1 H (0.5-1.0) mg/dL Total Protein 7.5 (6.0-8.3) g/dL Albumin 4.2 (3.3-5.0) g/dL Procalcitonin 2.24 H (<0.50) ng/mL SARS-CoV-2 (PCR) Negative SARS-CoV-2 (Negative) Influenza Type A (PCR) Negative PCR FLU A (Negative) Influenza Type B (PCR) Negative PCR FLU B (Negative) RSV (PCR) Negative PCR RSV (Negative) Imaging Data Chest x-ray: Attestation: I have reviewed the pertinent imaging results. My impression: Increased lung markings right lower lobe lobe consistent with pneumonia. Radiologist's impression: Cardiovascular and mediastinum: Heart size and vasculature are normal in caliber and appearance. Lungs and pleural space: No pleural effusion or pneumothorax. Bibasilar airspace disease consistent with pneumonia. Bones and soft tissues: No acute findings. ECG Data Attestation: I personally reviewed and interpreted this ECG as follows: ECG interpretation date: 12/18/23 Interpretation: EKG by my read shows sinus rhythm at a rate of 99. Flattening of the T-wave noted in 3, AVF and V3. QT and TN intervals within normal limits. Discharge Plan Discharge Clinical Impression: Pneumonia Qualifiers: Pneumonia type: due to unspecified organism Laterality: unspecified laterality Lung location: unspecified part of lung Qualified Code(s): J18.9 - Pneumonia, unspecified organism Patient Disposition: Admitted As Observation Condition: Improved
--- NOTE | 2023-12-18 11:23 | XR_ITS ---
Patient: YANG RAMIREZ Facility:?[facility] Patient ID:?[id number] Site Patient ID:?[id number]. Site :?[id number] Study:?XRay-Chest Portable-12/18/2023 12:01:53 PM Ordering Physician:Blanca Kirk Final Report: Indication: Cough Technique: Chest 1 view Comparison: Chest x-ray 02/27/2023 Findings/Impression: Cardiovascular and mediastinum: Heart size and vasculature are normal in caliber and appearance. Lungs and pleural space: No pleural effusion or pneumothorax. Bibasilar airspace disease consistent with pneumonia. Bones and soft tissues: No acute findings. Dictated by Lee Cuevas MD @ 12/18/2023 12:15:48 PM Signed by:?Lee Cuevas MD @12/18/2023 12:15:48 PM (Electronic Signature)
--- OUTSIDE RECORDS SUMMARY | 2023-12-18 11:29 | XMS_ITS | Referral Summary ---
Author Name Unknown Organization [facility] Address [address] [place] [id number] Care Team Providers Care Cardiovascular Lab Director Name Role Phone No Ref-Primary, Physician Primary Care Provider Allergies Active Allergy Reactions Criticality Noted Date Comments Nickel Hives 08/30/2008 Copper and cobalt also No Clinical Screening - See Comments Other (See Comments) 08/30/2008 Was tested at [facility] [place] in 1979. (See letter scanned 08/2008) Penicillin G 10/28/2016 Sodium Lauryl Sulfate Other (See Comments) 02/15 Mouth sores Streptococci 10/28/2016 Streptococcus Antigen Other (See Comments) 08/18 Was tested at [facility] [place] in 1979. (See letter scanned 08/2008) Sulfa Antibiotics Nausea 01/03/2006 Yeast Other (See Comments) 08/30/2008 Was tested at [facility] [place] in 1979. (See letter scanned 08/2008) Zolpidem Unknown 02/27/2011 Medications Medication Sig Dispensed Refills Start Date End Date Status glucosamine-chondroiti n 500-400 MG CAPS per capsule Take 1 capsule by mouth 02/27/2011 Active Active Problems No known active problems Immunizations Name Administration Dates Next Due [id number] Novel Flu 08/26/2009 Influenza (H1N1) 08/24/2009 Influenza (IIV3) PF 07/04/2010,04/18/2009 Pneumo Conj 13-V (2010&after) 02/04/2018 TD,PF 7+ (Tenivac) 07/18/2008 TDAP Vaccine (Adacel) 02/04/2018 Td (Adult), Adsorbed 07/18/2008 Tdap (Adult) Unspecified Formulation 07/18/2008 Social History Tobacco Use Types Packs/Day Years Used Date Smoking Tobacco: Never Smokeless Tobacco: Never Alcohol Use Standard Drinks/Week Comments No 0 (1 standard drink = 0.6 oz pur e alcohol) PHQ-2 Answer Date Recorded PHQ-2 Score 0 08/26/2018 Sex and Gender Information Value Date Recorded Sex Assigned at Not on file Gender Identity Not on file Sexual Orientation Not on file Last Filed Vital Signs Vital Sign Reading Time Taken Comments Blood Pressure 110/70 11/10/2018 2:04 PM CDT Pulse 86 11/10/2018 2:04 PM CDT Temperature 36.9 ??C (98.4 ??F) 11/10/2018 2:04 PM CD T Respiratory Rate 14 11/10/2018 2:04 PM CDT Oxygen Saturation 95% 11/10/2018 2:04 PM CDT Inhaled Oxygen Concentration - - Weight 80.2 kg (176 lb 12.8 oz) 11/10/2018 2:04 PM CDT Height 168.3 cm (5' 6.25) 11/10/2018 2:04 PM CD T Body Mass Index 28.32 11/10/2018 2:04 PM CDT Plan of Treatment Not on file Care Teams Cardiovascular Lab Director Relationship Specialty Start Date End Date No Ref-Primary, Physician PCP - General 11/10/18
--- OUTSIDE RECORDS SUMMARY | 2023-12-18 11:29 | XMS_ITS | Clinical Summary ---
Author Name Unknown Organization [employer] [facility] Address [place], [place] [address] Care Team Providers Care Supervisor Fireworks Assembly Name Role Phone Juan Manuel Chase MD Primary Care Provider [phone] Allergies Active Allergy Reactions Criticality Noted Date Comments Zolpidem Headache 02/27/2011 Ciprofloxacin Arthralgia 01/09/2023 Pain head to toe. Difficulty walking. Nickel Hives 08/30/2008 Copper and cobalt also Penicillins Hives 01/03/2006 Sodium Lauryl Sulfate Other - Describe I n Comment Field 02/27/2011 Mouth sores Streptococcus Other - Describe In Comment Field 08/30/2008 Was skin tested at [place] in 1979. (See letter scanned 08/2008) Sulfa (Sulfonamide Antibiotics) Nausea Only 01/03/2006 Yeast, Dried Other - Describe In Comment Field 08/30/2008 Was tested at [place] in 1979. (See letter scanned 08/2008) Ondansetron Headache Medium 05/16/2023 Severe headache Medications Medication Sig Dispensed Refills Start Date End Date Status calcium carbonate-vitamin D3, 600 mg-400 unit, (CALCIUM WITH VITAMIN D) tablet Take 1 tablet by mouth 2 times daily with meals. 60 tablet 0 02/27/2011 Active glucosamine-chondro itin, 500-400 mg, (COSAMIN DS 500/400) 500-400 mg Cap Take 1 capsule by mouth once daily. 30 capsule 0 02/27/2011 Active polyethylene glycol-electrolyte (GOLYTELY) 236-22.74-6.74 -5.86 gram suspensionIndicatio ns:Encounter for screening colonoscopy Drink 2 liters the day before colonoscopy and 2 liters 6 hours before colonoscopy appointment 4000 mL 11/10/2023 Active Hospital, Clinic, or Other Facility Administered Medication Ordered Dose Route Frequency Start Date End Date Status fentaNYL (PF) (SUBLIMAZE) 50 mcg/mL injection 100 mcgIndications:Screen for colon cancer 100 mcg IV ONE TIME 11/19/2023 11/19/2023 Ended midazolam (VERSED) injection 2 mgIndications:Screen for colon cancer 2 mg IV ONE TIME 11/19/2023 11/19/2023 Ended Active Problems Problem Noted Date Diagnosed Date Colon polyp 11/20/2023 Overview: Colonoscopy 11/2023 2-TA, repeat in 5 years, PEG 6-8L Primary cancer of left breast 02/07/2023 Overview: January 2023: Invasive ductal carcinoma with approximately 60% tumor infiltrating lymphocytes (TILs); see comment a. [place] grade: III of III; Kelsie score: 8 of 9. Stage IA anatomic, Stage I B Prognostic, T1b No Monofilament, triple negative grade 3-. Seeing Dr. Elias for Oncology. Pap smear for cervical cancer screening 10/01/19 Overview: 09/2021 NIL/HPV negative Plan: Routine screening Migraine without aura and wi thout status migrainosus, not intractable 09/21/2020 Gluten intolerance 09/21/2020 Overview: 2013 approximately stopped eating gluten although not extremely strict. No formal celiac testing prior to labs September 2020. Could be false negative. 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 Encounters Date Type Department Care Team Description 11/19/2023 7:30 AM CDT Office Visit [facility] [address] [address] Ruperto Cain MD Procedure (Colonoscopy) 11/19/2023 Travel 11/13/2023 Telephone [facility] [address] [address] Ruperto Cain MD Questions 11/12/2023 Telephone [facility] [address] [facility] [place] [address] Ruperto Cain MD Appointment Reminder (Colonoscopy) 10/17/2023 7:45 AM RESEARCH CHIEF ENGINEER Orders Only [facility] [address] [place] [address] Lab, Farm Lab 10/17/2023 Travel 10/16/2023 7:50 AM RESEARCH CHIEF ENGINEER Office Visit [facility] [address] [facility] [place] [address] Juan Manuel Chase MD Physical (Age 63) 10/16/2023 Telephone [facility] [address] [place] [address] Ruperto Cain MD Screening 10/16/2023 Travel 10/01/2023 Travel from Last 3 Months Immunizations Name Administration Dates Next Due COVID-19 vaccine ([employer] NTKoduco 30mcg/0.3mL) 12YO+ BIVALENT PF, MDV 02/24/2023 COVID-19 vaccine ([employer]-BioNTKoduco 30mcg/0.3mL) P F, MDV 12/08/2020,11/17/2020 Influenza A (H1N1), Inactivated (Age >=3 Years) 08/26/2009 Influenza RIV4 (Age 18+ Years) PRESERV FREE 04/18,05/14/2020 Influenza, IIV3 (Age >=3 years) 07/04/2010,04/18 Influenza, IIV4 04/12/2022 Influenza, IIV4 (=>6mos) MDV 04/28/2023,05/20/20 19 Pneumococcal conj 13-Valent (Prevnar 13) 018 RSV, Recombinant ADJ Reconst ituted (Arexvy 120MCG/0.5mL) 04/28/2023 Td (Age >=7 Years) 07/18/2008 Td, Preservative Free (age >= 7 Years) 8 Tdap 02/04/2018 Zoster (Shingrix-RZV, recombinant) 06/24/2018, Family History Medical History Relation Name Comments Asthma Father PAYAM White Heart Disease Father PAYAM White pacemaker Thyroid Disease Father PAYAM White GRAVES DISEA SE Cancer-breast Maternal Aunt MARLEEN Other Maternal Aunt MARLEEN crohn's diseas e Diabetes Mother Mireya Pleitez age 60 Heart Disease Mother Mireya Pleitez several stent s, started age 65 Cancer-breast Other 1 parental great aunt Cancer-breast Other 2 cousin Other Other 3 Nephew soft tissue car cinoma Cancer Paternal Grandmother colon c ancer Relation Name Status Comments Father PAYAM White Maternal Aunt MARLEEN Mother Mireya Pleitez Other 1 Other 2 cousin Alive Other 3 Nephew Alive Paternal Grandmother Social History Tobacco Use Types Packs/Day Years Used Date Smoking Tobacco: Former Cigarettes 0.5 5 0 09/21/1984 - 09/21/1989 Smokeless Tobacco: Never Tobacco Cessation:Counseling Given: Not Answered Comments:quit when a teenager Alcohol Use Standard Drinks/Week Comments No 0 (1 standard drink = 0.6 oz pur e alcohol) PHQ-2 Answer Date Recorded PHQ-2 TOTAL SCORE 0 10/16/2023 Social Connections Answer Date Recorded Frequency of Communication with Friends and Fami ly 0 10/01/2023 Financial Resource Strain Answer Date R ecorded Difficulty of Paying Living Expenses 3 10/01/2023 Difficulty of Paying Living Expenses Not on file 10/01/2023 Food Insecurity Answer Date Recorded Worried About Running Out of Food in the Last Ye ar 1 10/01/2023 Transportation Needs Answer Date Record ed Lack of Transportation (Medical) 1 10/01/2023 Housing Stability Answer Date Recorded Unable to Pay for Housing in the Last Year 1 10/01/2023 Sex and Gender Information Value Date Recorded Sex Assigned at Not on file Gender Identity Not on file Sexual Orientation Not on file Obstetrics History Last Filed Vital Signs Vital Sign Reading Time Taken Comments Blood Pressure 110/61 11/19/2023 8:45 AM CDT Pulse 65 11/19/2023 8:45 AM CDT Temperature 36.9 ??C (98.4 ??F) 08/20/2010 8:26 AM CS T Respiratory Rate 18 11/19/2023 8:40 AM CDT Oxygen Saturation 98% 11/19/2023 8:45 AM CDT Inhaled Oxygen Concentration - - Weight 85.6 kg (188 lb 11.2 oz) 10/16/2023 8:00 AM RESEARCH CHIEF ENGINEER Height 169.2 cm (5' 6.61) 10/16/2023 8:00 AM CS T Body Mass Index 29.9 10/16/2023 8:00 AM RESEARCH CHIEF ENGINEER Plan of Treatment Upcoming Encounters Date Type Department Care Team (Late st Contact Info) Description 01/30/2024 8:00 AM CDT Ancillary Procedure [facility] [address] [place] [address] Health Maintenance Due Date Last Done Comments Pneumococcal series for age 6-64 (2 of 2 - PPSV23 or PCV20) 04/01/2018 02/04/2018 COVID-19 vaccine series ( season) 2023 06/02/2023, 02/24/2023, 06/11/2022, Additional history exists Influenza for age 50-64 04/18/2024 04/28/20 23, 04/12/2022, 05/05/2021, Additional history exists Mammogram for age 45-75 06/12/2024 06/12/20 23, 01/28/2023, 01/23/2023, Additional history exists Pap test for age 21-65 10/01/2024 , 10/01/2021, 11/26/2013, Additional history exists BMI (ht and wt on same day) for age 18+ 10/15/2024 10/16/2023, 05/16/2023, 02/24/2023, Additional history exists Depression screening for age 12+ 10/16/2024 10/17/2023, 10/16/2023, 10/16/2023, Additional history exists HIV for age 15-65 11/29/2024 Postponed from 1974 (Patient discretion) Lipids for age 45-75 10/12/2026 10/12/2021, 09/28/2020, 03/06/2010, Additional history exists Tetanus booster 02/05/2028 02/04/2018, 12/08/2007, 07/18/2008 Colonoscopy through age 75 11/18/202811/18, 11/19/2023, 11/19/2023, Additional history exists Tdap Completed 02/04/2018 Zoster (shingles) series for age 50+ Completed 06/24/2018, 03/04/2018 Hepatitis C screening for age 18-79 Completed 10/12/2021 Procedures Procedure Name Priority Date/Time Associated Diagnosis Comments PATH TISSUE EXAM Routine 11/19/2023 8:21 AM CDT Screen for colon cancer Polyp of colon, unspecified part of colon, unspecified type Diverticulosis of large intestine without hemorrhage COLONOSCOPY 11/19/2023 7:37 AM CDT COLONOSCOPY SCREENING Routine 11/19/2023 6:57 AM CDT Screen for colon cancer GLUCOSE, FASTING Routine 10/17/2023 7:31 AM RESEARCH CHIEF ENGINEER Screening for diabetes mellitus XR MAMMO UNI DIAGNOSTIC LEFT Routine 06/12/2023 12:00 AM CDT Infiltrating ductal carcinoma of left breast (HC) ANTI HCV Routine 10/12/2021 7:27 AM RESEARCH CHIEF ENGINEER Need for hepatitis C screening test LIPID PANEL W REFLEX MEASURED LDL Routine 10/12/2021 7:27 AM RESEARCH CHIEF ENGINEER Screening cholesterol level MBA INTER[employer]HIP THIN PREP PAP SCREEN IMAGED Routine 10/01/2021 8:11 AM RESEARCH CHIEF ENGINEER Cervical cancer screening from Last 3 Months or Most Recently Relevant to Health Maintenance Results * PATH TISSUE EXAM (11/19/2023 8:21 AM CDT) Case Report Pathology Report ?Case: [id number] ? Authorizing Provider: ??Ruperto Cain MD ?? Collected: ? 11/19/2023 0821 ? Ordering Location: ? [facility] ?? Received: ?11/19/2023 1253 ? Clinic ? Pathologist: ? Celso Evangelista ? MD RUBEN ? Specimen: ?Ascending Colon Polyp ? 11/20/2023 12:49 PM CDT [facility] Final Diagnosis A) COLON, ASCENDING, POLYPECTOMIES: 1. Tubular adenomas (2) 2. Negative for high grade dysplasia 3. Per the colonoscopy report: ?? a. Polyp sizes: 2 to 3 mm ?? b. Resection: Complete ?? c. Retrieval: Complete 11/20/2023 12:49 PM CDT [facility] Clinical Information Ms. Urban is a 63 y.o. who presents for screening colonoscopy. Colonoscopy findings include: ? - Two 2 to 3 mm polyps in the ascending colon, removed with a cold ? biopsy forceps. Resected and retrieved. ? - Diverticulosis in the sigmoid colon. ? - The examination was otherwise normal. 11/20/2023 12:49 PM CDT [facility] Gross Description A) Received in formalin are 2 lott mucosal fragments averaging 3 mm in greatest dimension, which are entirely submitted in one cassette. It is labeled with the patient's name and designated Jeff Draper Noon 11/19/2023 9:16 PM 11/20/2023 12:49 PM CDT [facility] Microscopic Description The final diagnosis is based on microscopic examination of appropriate sections of all specimens. 11/20/2023 12:49 PM CDT [facility] Additional Information Interpreted at [facility], Central Laboratory - [address] [place] [address] [place] [address] 11/20/2023 12:49 PM CDT [facility] EN[facility] Other (Ascending Colon Polyp) Non-Blood / Unknown 11/19/2023 8:21 AM CDT 11/19/2023 12:53 PM CDT Ruperto Cain MD PATHOLOGY/CYTOLOG Y [facility] [address] [place] [address], * COLONOSCOPY (11/19/2023 7:37 AM CDT) 11/19/2023 7:37 AM CDT Narrative Transcriptions Ruperto Cain MD - 11/19/2023 8:37 AM CDT Patient Name: Adurey Urban Procedure Date: 11/19/2023 Gender: Female Date of : 1960 Admit Type: Outpatient Procedure: Colonoscopy Proceduralist: Ruperto Cain MD , Jacqueline Miller (Nurse), Clare Robles RN (Nurse) Referring MD: Juan Manuel Chase Indications/Pre-Op Diagnosis: Screening for colorectal malignant neoplasm, Last colonoscopy: date unknown (unable to locate last colonoscopy report) Medications: Fentanyl 100 micrograms IV, Midazolam 2 mgIV, The level of sedation administered wasmoderate Procedure Description: The patient had risks, benefits and alternatives explained to andgave informed consent. The patient had a stable cardiopulmonary status and judged an adequate candidate for conscious sedation. The endoscope PCF-H190L [id number] was passed through the anus andadvanced to the cecum, identified by appendiceal orifice and ileocecal valve.The colonoscopy was performed without difficulty. The patient toleratedthe procedure well. The quality of the bowel preparation was good. The ileocecal valve, appendiceal orifice, and rectum were photographed. Complications: No immediate complications. Estimated Blood Loss & Specimen: Estimated blood loss: none. Specimen collected - Yes and sent to Laboratory Findings: The perianal and digital rectal examinations were normal. Two sessile polyps were found in the ascending colon. The polyps were2 to 3 mm in size. These polyps were removed with a cold biopsyforceps. Resection and retrieval were complete. Scattered small-mouthed diverticula were found in the sigmoidcolon. The exam was otherwise without abnormality. Impressions/Post-Op Diagnosis: - Two 2 to 3 mm polyps in the ascending colon, removed with a cold biopsy forceps. Resected and retrieved. - Diverticulosis in the sigmoid colon. - The examination was otherwise normal. Recommendation: - Patient has a contact number available for emergencies. The signsand symptoms of potential delayed complications were discussed with the patient. Return to normal activities tomorrow. Written discharge instructions were provided to the patient. - Resume previous diet. - Continue present medications. - Await pathology results. - Repeat colonoscopy is recommended. The colonoscopy date will be determined after pathology results from today's exam become available for review. - For future colonoscopy the patient will require an extended preparation, Peg 6-8L. If there are any questions, please contact the music coordinator. Moderate Sedation: A time out was performed before the procedure. Moderate (conscious) sedation was administered by the endoscopy nurse and supervised bythe endoscopist. The following parameters were monitored: oxygensaturation, heart rate, blood pressure, EKG, CO2, respiratory rate, adequacy of pulmonary ventilation and reponse to care. Please refer to the patient's medical record flowsheets and nursing notes for moderate sedation details. Total physician intraservice time was 17 minutes. Ruperto Cain MD 11/19/2023 8:37:28 AM This report has been signed electronically. Note Initiated On: 11/19/2023 7:37 AM Procedure Code(s): --- Professional --- 35269, Colonoscopy, flexible; with biopsy, single or multiple Diagnosis Code(s): --- Professional --- Z12.11, Encounter for screening formalignant neoplasm of colon D12.2, Benign neoplasm of ascending colon K57.30, Diverticulosis of large intestine without perforation or abscess withoutbleeding CPT copyright 2021 [employer]. All rights reserved. The codes documented in this report are preliminary and upon grinding and spraying supervisor reviewmay be revised to meet current compliance requirements. Scope In: 8:12:12 AM Scope Withdrawal Time 0 hours 11 minutes 12 seconds Scope Out: 8:27:16 AM Ruperto Cain MD PROCEDURE ORD * GLUCOSE, FASTING (10/17/2023 7:31 AM RESEARCH CHIEF ENGINEER) GLUCOSE 91 70 - 99 mg/dL 10/17/2023 7:41 AM RESEARCH CHIEF ENGINEER [facility] Blood BLOOD SPECIMEN / Unknown Venipuncture / Unknown 10/17/2023 7:31 AM RESEARCH CHIEF ENGINEER 10/17/2023 7:31 AM RESEARCH CHIEF ENGINEER Juan Manuel Chase MD CHEMISTRY [facility] [address] [place] [address], * XR MAMMO UNI DIAGNOSTIC LEFT (06/12/2023 12:00 AM CDT) Anatomical Region Laterality Modality BREASTS, Breast Left Mammography Enedina Infante MD MAMMO * (ABNORMAL) LIPID PANEL W REFLEX MEASURED LDL (10/12/2021 7:27 AM RESEARCH CHIEF ENGINEER) CHOLESTEROL,TOTAL 203(H) 100 - 199 mg/dL 10/12/2021 5:24 PM RESEARCH CHIEF ENGINEER [facility] TRAL LABORATORY TRIGLYCERIDES 139 <150 mg/dL 10/12/2021 5:24 PM RESEARCH CHIEF ENGINEER [facility] HDL CHOLESTEROL 55 >40 mg/dL 5:24 PM RESEARCH CHIEF ENGINEER [facility] NON-HDL CHOLESTEROL 148(H) <145 mg/dl 10/12/2021 5:24 PM RESEARCH CHIEF ENGINEER [facility] CHOL/HDL RATIO 3.69 <4.50 10/12/2021 5:24 PM RESEARCH CHIEF ENGINEER [facility] LDL CHOLESTEROL 120 <=130 mg/dL 10/12/2021 5:24 PM RESEARCH CHIEF ENGINEER [facility] VLDL CHOLESTEROL 28 <=30 mg/dL 10/12/2021 5:24 PM RESEARCH CHIEF ENGINEER [facility] PROVIDER ORDERED STATUS FASTING 10/12/2021 5:24 PM RESEARCH CHIEF ENGINEER [facility] Blood BLOOD SPECIMEN / Unknown Venipuncture / Unknown 10/12/2021 7:27 AM RESEARCH CHIEF ENGINEER 10/12/2021 7:27 AM RESEARCH CHIEF ENGINEER Juan Manuel Chase MD CHEMISTRY [facility] LAB[facility]ATORY [address] [place] [address], [place] * ANTI HCV (10/12/2021 7:27 AM RESEARCH CHIEF ENGINEER) [facility] HEPATITIS C ANTIBODY Non-React mariola Non-React mariola 10/12/2021 5:44 PM RESEARCH CHIEF ENGINEER [facility] Comment:Antibodies to HCV no t detected; does not exclude the possibility of exposure to HCV. Blood BLOOD SPECIMEN / Unknown Venipuncture / Unknown 10/12/2021 7:27 AM RESEARCH CHIEF ENGINEER 10/12/2021 7:27 AM RESEARCH CHIEF ENGINEER Juan Manuel Chase MD SEND OUTS [facility] [address] [place] [address], * [employer] THIN PREP PAP SCREEN IMAGED (10/01/2021 8:11 AM RESEARCH CHIEF ENGINEER) [facility] Case Report Gynecologic Cytology Report ? Case: [id number] ? Authorizing Provider: ??Juan Manuel Chase MD ?? Collected: ? 10/01/2021810 ? Ordering Location: ? [facility] ?? Received: ?10/01/2021810 ? Clinic ? First Screen: ?Baccam, Minie ? Specimen: ?MBA INTERNSHIP ThinPrep Vial Screening, Cervical ? 10/09/2021 3:01 PM RESEARCH CHIEF ENGINEER [facility]- ENTRAL LABORATORY INTERPRETATION/ RESULT NEGATIVE FOR INTRAEPITHELIAL LESION OR MALIGNANCY (NIL) (none) 10/09/2021 3:01 PM RESEARCH CHIEF ENGINEER [facility] ENTRAL LABORATORY IMEN ADEQUACY Satisfactory for evaluation No endocervical component seen 10/09/2021 3:01 PM RESEARCH CHIEF ENGINEER [facility] HPV REQUEST HPV if ASCUS 10/09/2021 3:01 PM RESEARCH CHIEF ENGINEER [facility] ENTRAL LAB[facility]ORY Date of LMP NA 10/09/2021 3:01 PM RESEARCH CHIEF ENGINEER [facility] EN[facility] LAB[facility]ORY Last Pap Date 2014 10/09/2021 3:01 PM RESEARCH CHIEF ENGINEER [facility] EN[facility] LAB[facility] Last Pap Result NIL 3:01 PM RESEARCH CHIEF ENGINEER [facility] EN[facility]AL LAB[facility]ORY Abnormal Pap or [place] Bx in last 5 years No 10/09/2021 3:01 PM RESEARCH CHIEF ENGINEER [facility] ENTRAL LAB[facility]ATORY Menstrual Status Postmenopausal 10/09/2021 3:01 PM RESEARCH CHIEF ENGINEER [facility] ENTRAL LABORATORY [place] Bx Done Today No 10/09/2021 3:01 PM RESEARCH CHIEF ENGINEER [facility] ENTRAL LAB[facility]ATORY Additional Information None given 10/09/2021 3:01 PM RESEARCH CHIEF ENGINEER [facility] ENTRAL LABORATORY Comment: Cytology is screened at [facility] - [address], [place] [address] [facility] - [address] [place] [address] and [facility] - [address] [place] [address] Interpreted at [facility] - [address], [place] [address] Automated Review Successful 10/09/2021 3:01 PM RESEARCH CHIEF ENGINEER [facility] LABORATORY-C ENTRAL LABORATORY Comment:Specimen processed s uccessfully by automated parer device, [employer] System, [employer] Note The pap test is a screening technique, not a diagnostic procedure. It is used primarily to screen for squamous cancers and precursor lesions. Published studies have shown that it is subject to both false negative and false positive results. The pap test should not be used as the sole means to diagnose or exclude pre-malignant and malignant lesions. 10/09/2021 3:01 PM RESEARCH CHIEF ENGINEER [facility] EN[facility]AL LAB[facility]ATORY Other (Cervical) Non-Blood / Unknown 10/01/2021 8:11 AM RESEARCH CHIEF ENGINEER 10/01/2021 8:11 AM RESEARCH CHIEF ENGINEER Juan Manuel Chase MD PATHOLOGY/CYTOLOG Y [facility] LAB[facility]AT[facility] [address] [place] [address], [place] from Last 3 Months or Most Recently Relevant to Health Maintenance Care Teams Supervisor Fireworks Assembly Relationship Specialty Start Date End Date Juan Manuel Chase MD [address] [place] [address] PCP - General Family Practice 02/06/23
--- OUTSIDE RECORDS SUMMARY | 2023-12-18 11:29 | XMS_ITS ---
Author Name Unknown Organization [facility] Address [address] [place] [address] Care Team Providers Care Forging Press Operator Name Role Phone Unavailable Unavailable Unavailable Surgery Details Not on file Complications Check Surgery Details section. Procedure Estimated Blood Loss Check Surgery Details section. Procedure Findings Check Surgery Details section. Procedure Specimens Taken Check Surgery Details section.
--- OUTSIDE RECORDS SUMMARY | 2023-12-18 11:29 | XMS_ITS ---
Author Name Unknown Organization [facility] Address [address] [place] [address] Care Team Providers Care Civil Laboratory Technician Name Role Phone Unavailable Primary Care Provider Unavailabl e Active Problems Problem Noted Date Diagnosed Date Malignant Neoplasm Of Breast Upper Outer Quadrant Female Left 02/07/2023 Cancer Staging:Clinical stage from 02/04/2023:Stage IB(cT1b, cN0, cM0, G2, ER-, RI-, HER2-) - Unsigned Pathologic stage from 06/12/2023: ypT0, pN0(sn), cM0, ER-, RI-, HER2- - Unsigned Overview: January 2023: Invasive ductal carcinoma with approximately 60% tumor infiltrating lymphocytes (TILs); see comment a. Kelsie grade: III of III; Kelsie score: 8 of 9. Stage IA anatomic, Stage I B Prognostic, T1b No Monofilament, triple negative grade 3-. Seeing Dr. Elias for Oncology. Current Oncology Plans No current plan information found. Past Plans No past plan information found. Radiation Treatments * Plan Last Treated On Elapsed Days Fractions Treated Prescribed Fraction Dose Prescribed Total Dose [id number] 07/25/2023 10 4 of 4 250 cGy 1,000 cGy [id number] 07/21/2023 6 5 of 5 520 cGy 2,600 cGy Reference Point Last Treated On Elapsed Days Session Dose Total Dose [id number] 07/25/2023 10 250 cGy 3,600 cGy
--- OUTSIDE RECORDS SUMMARY | 2023-12-18 11:29 | XMS_ITS | Clinical Summary ---
Author Name Unknown Organization [facility] Address [address] [place] [address] Care Team Providers Care Mid Level Java Developer Name Role Phone Unavailable Primary Care Provider Unavailabl e Source Comments Patient records contain information from all sites at [facility]. For routine questions regarding patient records, call [phone] during business hours, M-F 8:00 AM - 5:00 PM Central Time. Record requests for emergency care only can be directed to [phone] at any time.[facility] Medications Medication Sig Dispensed Refills Start Date End Date Status erythromycin (ROMYCIN) 5 mg/gram (0.5 %) ophthalmic ointment Apply 1 strip to affected eye(s). 07/07/2023 Active glucosamine-chondroi tin (GLUCOSAMINE-CHONDRO ITIN) 500-400 mg per capsule Take 1 capsule by mouth daily. 02/27/2011 Active calcium carbonate-vitamin D3 1,500 mg (600 mg calcium)-10 mcg (400 Unit) per tablet Take 1 tablet by mouth. 02/27/2011 Active mometasone (ELOCON) 0.1 % cream Apply 1 Application topically as directed. Apply to left breast twice daily starting on the 1st day of radiation treatment. Continue for 10 days following the completion of radiation treatment. 30 g 1 07/08/2023 Active Active Problems Problem Noted Date Diagnosed Date Malignant Neoplasm Of Breast Upper Outer Quadrant Female Left 02/07/2023 Cancer Staging:Clinical stage from 02/04/2023:Stage IB(cT1b, cN0, cM0, G2, ER-, ND-, HER2-) - Unsigned Pathologic stage from 06/12/2023: ypT0, pN0(sn), cM0, ER-, ND-, HER2- - Unsigned Overview: January 2023: Invasive ductal carcinoma with approximately 60% tumor infiltrating lymphocytes (TILs); see comment a. Kelsie grade: III of III; Kelsie score: 8 of 9. Stage IA anatomic, Stage I B Prognostic, T1b No Monofilament, triple negative grade 3-. Seeing Dr. Elias for Oncology. Social History Tobacco Use Types Packs/Day Years Used Date Smoking Tobacco: Former Cigarettes Q uit: 1990 Smokeless Tobacco: Never Alcohol Use Standard Drinks/Week Comments Not Currently 0 (1 standard drink = 0.6 oz pur e alcohol) Overall Financial Resource Strain (CARDIA) Answe r Date Recorded How hard is it for you to pa y for the very basics like food, housing, medical care, and heating? Somewhat hard 07/15/2023 Exercise Vital Sign Answer Date Recorde d On average, how many days pe r week do you engage in moderate to strenuous exercise (like a brisk walk)? 2 days 07/15/2023 On average, how many minutes do you engage in exercise at this level? 20 min 07/15/2023 Hunger Vital Sign Answer Date Recorded Within the past 12 months, y ou worried that your food would run out before you got the money to buy more. Never true 07/15/20 23 Within the past 12 months, t he food you bought just didn't last and you didn't have money to get more. Never true 07/15/2023 PRAPARE - Transportation Answer Date Re corded In the past 12 months, has l ack of transportation kept you from medical appointments or from getting medications? No 06/19 In the past 12 months, has l ack of transportation kept you from meetings, work, or from getting things needed for daily living? No 07/15/2023 Nutrition Answer Date Recorded Nutrition: EVOO Fat Source Unknown 07/15 On average, how many serving s of fruits and vegetables do you eat per day (serving size is equal to 1 cup or approximately the size of a tennis ball)? 3-5 07/15/2023 Dental Answer Date Recorded Dental: Regular Dentist No 07/15/20 Employment Answer Date Recorded Employment status Retired 07/15/2023 Housing Stability Answer Date Recorded What is your living situation today? I have a [facility] place to live 07/15/2023 Sex and Gender Information Value Date Recorded Sex Assigned at Female 07/15/2023 7:17 PM MILLWORK ESTIMATOR Gender Identity Female 07/15/2023 7:17 PM MILLWORK ESTIMATOR Sexual Orientation Straight 07/15/2023 7: 17 PM MILLWORK ESTIMATOR Last Filed Vital Signs Vital Sign Reading Time Taken Comments Blood Pressure 125/49 07/08/2023 12:50 PM MILLWORK ESTIMATOR Pulse 75 07/08/2023 12:50 PM MILLWORK ESTIMATOR Temperature 36.2 ??C (97.1 ??F) 07/23/2023 1:12 PM CS T Respiratory Rate - - Oxygen Saturation - - Inhaled Oxygen Concentration - - Weight 86.3 kg (190 lb 4.1 oz) 07/23/2023 1:12 P M MILLWORK ESTIMATOR Height - - Body Mass Index - - Plan of Treatment Health Maintenance Due Date Last Done Comments CT Colonography 1959 Cervical Cancer Screening 1959 Cologuard 1959 Colonoscopy 1959 Colorectal Cancer Screening 1959 FIT 1959 HIV Screening 1959 Hepatitis C Screening 1959 Pneumococcal vaccine (0-64 years) (2 of 2 - PPSV23 or PCV20) 04/01/2018 02/04/2018 Depression Screening (Annual PHQ-2) 08/18/2023 Mammogram 01/29/2024 01/28/2023, 0603/2023, 01/23/2023, Additional history exists Fasting Glucose for Diabetes Screening 10/12/2024 10/12/2021, 09/28/2020 Lipid (Cholesterol) Screening 10/12/2026 10/12/2021, 09/28/2020 DTaP,Tdap,and Td Vaccines (2 - Td or Tdap) 02/05/2028 02/04/2018, 07/18/2008 Zoster Vaccines Completed 06/24/2018, 03/04/2018 Influenza Vaccine Completed 04/28/2023, , 05/05/2021, Additional history exists COVID-19 Vaccine Completed 06/02/2023, 05/2023, 06/11/2022, Additional history exists HPV Vaccines Aged Out No longer eligi ble based on patient's age to complete this topic Procedures Procedure Name Priority Date/Time Associated Diagnosis Comments OUTSIDE MG MAMMOGRAM Routine 01/28/2023 2:15 PM CDT EXTI GLUCOSE, FASTING, S/P Routine 10/12/2021 7:27 AM MILLWORK ESTIMATOR EXTI LIPID PANEL W REFLEX MEASURED LDL Routine 10/12/2021 7:27 AM MILLWORK ESTIMATOR from Last 3 Months or Most Recently Relevant to Health Maintenance Results * XR MAMMO JILLIAN UNI ADDL VIEWS LEFT-Outside Mammogram (01/28/2023 2:15 PM CDT) Narrative [facility] - 07/01/2023 11:30 AM MILLWORK ESTIMATOR This order has been created and auto-finalized to support the import of outside images. If available, original interpretation can be found on the Media Tab in Chart Review, in Document Viewer, or as an image in QREADS. If a re-interpretation or overread is required please follow defined workflow. ?? Provider Not In System IMG BI PROCEDURES [facility] NA from Last 3 Months or Most Recently Relevant to Health Maintenance
--- OUTSIDE RECORDS SUMMARY | 2023-12-18 11:29 | XMS_ITS | Clinical Summary ---
Author Name Unknown Organization [facility] Address [address] [place] [id number] Care Team Providers Care Apns Name Role Phone No Ref-Primary, Physician Primary Care Provider Allergies Active Allergy Reactions Criticality Noted Date Comments Nickel Hives 08/30/2008 Copper and cobalt also No Clinical Screening - See Comments Other (See Comments) 08/30/2008 Was tested at [place] in 1979. (See letter scanned 08/2008) Penicillin G 10/28/2016 Sodium Lauryl Sulfate Other (See Comments) 02/15 Mouth sores Streptococci 10/28/2016 Streptococcus Antigen Other (See Comments) 08/18 Was tested at [place] in 1979. (See letter scanned 08/2008) Sulfa Antibiotics Nausea 01/03/2006 Yeast Other (See Comments) 08/30/2008 Was tested at [place] in 1979. (See letter scanned 08/2008) Zolpidem Unknown 02/27/2011 Medications Medication Sig Dispensed Refills Start Date End Date Status glucosamine-chondroiti n 500-400 MG CAPS per capsule Take 1 capsule by mouth 02/27/2011 Active Active Problems No known active problems Immunizations Name Administration Dates Next Due [id number] Novel Flu 08/26/2009 Influenza (H1N1) 08/24/2009 Influenza (IIV3) PF 07/04/2010,04/18/2009 Pneumo Conj 13-V (2010&after) 02/04/2018 TD,PF 7+ (Tenivac) 07/18/2008 TDAP Vaccine (Adacel) 02/04/2018 Td (Adult), Adsorbed 07/18/2008 Tdap (Adult) Unspecified Formulation 07/18/2008 Family History Medical History Relation Comments Family History Negative Father Family History Negative Mother Relation Status Comments Father Alive Mother Social History Tobacco Use Types Packs/Day Years [...] of Treatment Not on file Care Teams Apns Relationship Specialty Start Date End Date No Ref-Primary, Physician PCP - General 11/10/18
--- OUTSIDE RECORDS SUMMARY | 2023-12-18 11:29 | XMS_ITS | Referral Summary ---
Author Name Unknown Organization [facility] Address [address] [place] [address] Care Team Providers Care Ventilating Expert Name Role Phone Unavailable Primary Care Provider Unavailabl e Source Comments Patient records contain information from all sites at [facility]. For routine questions regarding patient records, call [phone] during business hours, M-F 8:00 AM - 5:00 PM Central Time. Record requests for emergency care only can be directed to [phone] at any time.[facility] Medications Medication Sig Dispensed Refills Start [...] from 02/04/2023:Stage IB(cT1b, cN0, cM0, G2, ER-, [place]-, HER2-) - Unsigned Pathologic stage from 06/12/2023: ypT0, pN0(sn), cM0, ER-, WI-, HER2- - Unsigned Overview: January 2023: Invasive [...] living situation today? I have a [facility] place to live 07/15/2023 Sex and Gender Information Value Date Recorded Sex Assigned at Female 07/15/2023 7:17 PM MIXING OPERATOR Gender Identity Female 07/15/2023 7:17 PM MIXING OPERATOR Sexual Orientation Straight 07/15/2023 7: 17 PM MIXING OPERATOR Last Filed Vital Signs Vital Sign Reading Time Taken Comments Blood Pressure 125/49 07/08/2023 12:50 PM MIXING OPERATOR Pulse 75 07/08/2023 12:50 PM MIXING OPERATOR Temperature 36.2 ??C (97.1 ??F) 07/23/2023 1:12 PM CS T Respiratory Rate - - Oxygen Saturation - - Inhaled Oxygen Concentration - - Weight 86.3 kg (190 lb 4.1 oz) 07/23/2023 1:12 P M MIXING OPERATOR Height - - Body Mass Index - - Plan of Treatment Not on file Procedures Procedure Name Priority Date/Time Associated Diagnosis Comments OUTSIDE MG MAMMOGRAM Routine 01/28/2023 2:15 PM CDT EXTI GLUCOSE, FASTING, S/P Routine 10/12/2021 7:27 AM MIXING OPERATOR EXTI LIPID PANEL W REFLEX MEASURED LDL Routine 10/12/2021 7:27 AM MIXING OPERATOR from Last 3 Months or Most Recently Relevant to Health Maintenance Results * XR MAMMO JILLIAN UNI ADDL VIEWS LEFT-Outside Mammogram (01/28/2023 2:15 PM CDT) Narrative [facility] - 07/01/2023 11:30 AM MIXING OPERATOR This order has been created and auto-finalized [...]
[2023-12-18] MEDS: 0.9 % SODIUM CHLORIDE 1000 ml 1,000 ML IV (11:45)
[2023-12-18 11:51] LABS: PCR FLU A Negative PCR FLU A (Negative); PCR FLU B Negative PCR FLU B (Negative); PCR RSV Negative PCR RSV (Negative); SARS PCR* Negative SARS-CoV-2 (Negative)
[2023-12-18 12:03] LABS: Basophils Percent Auto 0.1 % (0.0-3.0); Hematocrit 41.7 % (33.0-51.0); Hemoglobin* 13.8 gm/dL (12.0-16.0); Immature Granulocytes Pct Auto 0.1 %; Lactate* 1.8 mmol/L (0.5-1.9); Lymphocytes Percent Auto 15.8 % (20-44); Mean Corpuscular HGB Conc 33 gm/dL (32-36); Mean Corpuscular Hemoglobin 32 pg (26-34); Mean Corpuscular Volume 97 fL (80-100); Monocytes Percent Auto 5.4 % (0.0-11.0); Neutrophils Percent Auto 78.6 % (42.0-72.0); Platelet Count* 153 K/uL (140-440); Red Blood Count 4.29 m/uL (4.00-5.20)
[2023-12-18 12:06] LABS: Slide Review Reflex No
[2023-12-18 12:23] LABS: Albumin* 4.2 g/dL (3.3-5.0); Chloride* 102 mmol/L (96-114)
[2023-12-18 12:24] LABS: Potassium* 3.8 mmol/L (3.6-5.1); Sodium* 136 mmol/L (135-149)
[2023-12-18 12:26] LABS: Creatinine* 0.8 mg/dL (0.5-1.5); Est. Creatinine Clearance* 55.27; Estimated Glomerular Filt Rate 82 ml/min
[2023-12-18 12:27] LABS: Alanine Aminotransferase* 22 U/L (4-35); Alkaline Phosphatase* 67 U/L (40-150); Anion Gap 6 mEq/L (7-15); Aspartate Amino Transferase* 29 U/L (12-35); Bilirubin Total* 0.7 mg/dL (0.1-1.5); Blood Urea Nitrogen* 28 mg/dL (7-30); Calcium* 8.8 mg/dL (8.4-10.6); Carbon Dioxide* 28 mmol/L (20-32); D Dimer Quantitative* 0.54 ug/ml (0.00-0.50); Glucose* 115 mg/dL (60-115); Total Protein* 7.5 g/dL (6.0-8.3)
[2023-12-18 12:38] LABS: Troponin I* 0.04 ng/mL (0.01-0.04)
[2023-12-18 12:42] LABS: Procalcitonin* 2.24 ng/mL (<0.50)
[2023-12-18 13:08] LABS: C Reactive Protein* 33.1 mg/dL (0.5-1.0)
[2023-12-18] MEDS: AZITHROMYCIN 250 MG TABLET 500 MG PO (13:14)
[2023-12-18] MEDS: cefTRIAXone 1 GM in 0.9 % SODIUM CHLORIDE Mini-bag 100 ML IVPB (13:15)
--- NOTE | 2023-12-18 13:32 | ED.NURSE ---
02 applied at 1L per Dr. Kirk request
[2023-12-18 13:36] LABS: Legionella pneumo Ag Urine L. pneumo Negative (Negative); S pneumo Ag Urine S. pneumo POSITIVE (Negative)
[2023-12-18 13:40] LABS: Appearance Urine Clear (Clear); Bilirubin Urine 1+ (Negative); Blood Urine 2+ (Negative); Color Urine Orange (Yellow); Glucose Urine Negative (Negative); Ketones Urine 1+ (Negative); Leukocyte Esterase Urine Negative (Negative); Nitrite Urine Negative (Negative); Protein Urine 2+ (Negative); Specific Gravity Urine >= 1.030 (1.000-1.030); Urobilinogen Urine 0.2 (0.2-1.0); pH Urine 5.5 (5.0-8.5)
[2023-12-18 13:42] LABS: RBC Urine 0-2 (0-2)
[2023-12-18 13:43] LABS: Amorphous Sediment Urine Moderate; Bacteria Urine Moderate; Mucus Urine Few; Squamous Epithelial Cell Urine Moderate (None-Few)
--- NOTE | 2023-12-18 13:47 | ED.NURSE ---
report to [facility] Mcma[facility], transferred to med/surg via wheelchair
--- NOTE | 2023-12-18 14:10 | P.IMHP_ITS ---
Hospitalist- H&P: HPI History of Present Illness Date Seen: 12/18/23 Chief complaint: Fever, congested for a week Narrative: Audrey Urban is a 63 year old female who presented to the ER today with a cough and fever, present for at least 3-4 days. Symptoms started with URI, had TMax of 103 at home yesterday. No hemoptysis, cough typically dry. No nausea or vomiting, + mild diarrhea. No CP, does have SOB when having coughing paroxysms, none at rest. No history of COPD or asthma, unknown sick contacts but is around grandchildren quite a bit. ER Course and Findings: - O2 saturation as low as 88% on RA in triage, placed on low dose supplemental O2 - + strep pneumonia urinary antigen - bibasilar PNA on CXR - elevated procalcitonin and WBC, age appropriate D-dimer - given Azithromycin and Ceftriaxone Upon arrival to the floor, Audrey is feeling okay, still having coughing paroxysms. Histories updated below; notably has history of breast cancer diagnosed in January 2023. She has completed chemotherapy and radiation, began active surveillance August 2023. Dr. Chase is PCP. Review of Systems Status of ROS: Reports: 10 or more systems reviewed and unremarkable except as noted in History and below [facility] Medical History (Updated 12/18/23 @ 16:48 by Lulú Lai MD) Breast cancer ?C50.919 - Malignant neoplasm of unspecified site of unspecified female breast (ICD-10) Depression ?F32.A - Depression, unspecified (ICD-10) Allergic rhinitis ?J30.9 - Allergic rhinitis, unspecified (ICD-10) Surgical History (Updated 12/18/23 @ 16:48 by Lulú Lai MD) H/O lumpectomy ?Z98.890 - Other specified postprocedural states (ICD-10) S/P section ?Z98.891 - History of uterine scar from previous surgery (ICD-10) S/P renetta ?Z90.49 - Acquired absence of other specified parts of digestive tract (ICD- 10) Social History (Updated 12/18/23 @ 16:46 by Lulú Lai MD) Narrative: Lives with Ranjith (would be MDM if needed). Homemaker. Nonsmoker, no ETOH, requests Full Code status. What is your current living situation?: I presently have a place to live Problems where you live: no known problems Problems where you live details: n/a In the past 12 months, utilities in danger of being shut off: no In past 12 months, lack of transportation kept you from medical appts, meetings, work, or getting things needed for daily living: no In the past 12 mos, have been you worried that your food would run out before you had money to buy more?: never true In the past 12 mos, the food you bought just didn't last and you didn't have money to buy more?: never true Highest level of school completed/degree received: Bachelor's degree Smoking Status: Former smoker How often do you have a drink containing alcohol: never How often do you have six or more drinks on one occasion: Never AUDIT-C Alcohol total score: 0 Non-prescribed substance use: denies use Caffeine: Yes How often does anyone, including family, friends and others, physically hurt you : never How often does anyone, including family, friends and others, insult or talk down to you: never How often does anyone, including family, friends and others, threaten you with harm: never How often does anyone, including family, friends and others, scream or curse at you: never Are you using contraception or practicing any form of control: No service: No Meds Home Medications and Allergies Home Medications Medication Instructions Recorded Confirmed Type cholecalciferol (vitamin D3) 10 400 unit PO DAILY 02/20/23 12/18/23 History mcg (400 unit) tablet acetaminophen 500 mg tablet 500 mg PO Q6H PRN 06/30/23 12/18/23 History (Tylenol Extra Strength) Allergies Allergy/AdvReac Type Severity Reaction Status Date / Time ciprofloxacin Allergy Mild Joint Pain Verified 12/08/23 09:47 nickel Allergy Mild Hives Verified 12/08/23 09:47 Sulfa (Sulfonamide Allergy Mild Nausea Verified 12/08/23 09:47 Antibiotics) zolpidem [From Ambien] Allergy Mild Headache Verified 12/08/23 09:47 sodium lauryl sulfate Allergy Unknown Verified 12/08/23 09:47 Streptococcus vaccine Allergy Unknown Verified 12/08/23 09:47 adhesive Allergy Verified 12/08/23 09:47 copper Allergy Verified 12/08/23 09:47 Penicillins Allergy Hives Verified 12/08/23 09:47 ondansetron [From Zofran] AdvReac Severe Headache Verified 12/08/23 09:47 gluten AdvReac Mild Verified 12/08/23 09:47 sumatriptan [From Imitrex] AdvReac Mild Verified 12/08/23 09:47 Exam Narrative: Exam Narrative: GEN: Alert and oriented, answering questions appropriately, no tachypnea at rest. Oxygen saturations as low as 87% on RA during my exam HEENT: EOMIs bilaterally, no scleral icterus CV: RRR, No concerning murmurs R: intermittent coughing paroxysms, bibasilar rhonchi, no wheezing Ext: wwp, no concerning edema Skin: No concerning skin lesions or rashes on exposed skin Neuro: No focal deficits Psych: Appropriate Const: Vital Signs, click to edit/add: Vital Signs - 24 hr 12/18/23 10:59 12/18/23 11:25 12/18/23 12:01 Temperature 97.7 F Pulse Rate 100 Pulse Rate [Pulse Oximeter] 105 H Respiratory Rate 12 14 Blood Pressure 131/65 Blood Pressure [Ri ght Upper Arm] 121/72 Pulse Oximetry 92 90 90 [facility] 12/18/23 12:31 12/18/23 13:01 12/18/23 13:01 Temperature Pulse Rate 89 97 97 Pulse Rate [Pulse Oximeter] Respiratory Rate 16 18 16 Blood Pressure 129/55 L 139/70 139/70 Blood Pressure [Ri ght Upper Arm] Pulse Oximetry 91 94 94 Oxygen Delivery Me thod 12/18/23 13:31 Temperature Pulse Rate 97 Pulse Rate [Pulse Oximeter] Respiratory Rate 14 Blood Pressure 131/51 L Blood Pressure [Ri ght Upper Arm] Pulse Oximetry 94 [facility]xygen [facility] - H&P: Result Labs Labs: Short CBC 12/18/23 Range/Units 11:55 WBC 14.90 H (4.50-11.00) K/uL Hgb 13.8 (12.0-16.0) gm/dL Hct 41.7 (33.0-51.0) % Plt Count 153 (140-440) K/uL BMP 12/18/23 11:55 Sodium 136 Potassium 3.8 Chloride 102 Carbon Dioxide 28 BUN 28 Creatinine 0.8 Glucose 115 Calcium 8.8 Cardiac Enzymes 12/18/23 Range/Units 11:55 Troponin I 0.04 (0.01-0.04) ng/mL Liver Function 12/18/23 Range/Units 11:55 Total Bilirubin 0.7 (0.1-1.5) mg/dL AST 29 (12-35) U/L ALT 22 (4-35) U/L Alkaline Phosphatase 67 (40-150) U/L Albumin 4.2 (3.3-5.0) g/dL Urine 12/18/23 Range/Units 13:10 Urine Color [place] A (Yellow) Urine Appearance Clear (Clear) Urine pH 5.5 (5.0-8.5) Ur Specific [place] >= 1.030 (1.000-1.030) Urine Protein 2+ A (Negative) Urine Glucose (UA) Negative (Negative) Assessment and Plan Assessment and plan (1) Pneumonia: Problem comment: - community acquired Strep Pneumonia - Ceftriaxone and Azithromycin (5/) - supplemental oxygen, cough suppressants, RT referral, fever management Status: Acute (2) Breast cancer: Problem comment: - T1b N0 M0 triple negative grade 3 left breast - diagnosed January 2023; s/p chemotherapy, radiation, lumpectomy. Began active surveillance August 2023 Status: Acute Plan - per above - Lovenox and SCDs for ppx - home when afebrile x24 hours and not requiring home O2 - daughter updated at bedside, questions answered
[2023-12-18] MEDS: BENZONATATE 100 MG CAPSULE 200 MG PO (15:27)
[2023-12-18] MEDS: ACETAMINOPHEN 325 MG TABLET 975 MG PO (17:02)
--- NOTE | 2023-12-18 19:34 | PC.NURSE ---
End of shift: Patient cooperative of cares, A&O. VSS, afebrile, SpO2 managed above 90% on RA. Patient reports a headache which was managed with PRN meds per OCT. Patient ordered dinner which she then later decided she did not want, so it was thrown away, denies N/V, reports loose stools. Patient asked to be able to take a nap with limited interruptions. ?
[2023-12-19] VITALS (8 sets, daily range): BP systolic 118–138; BP diastolic 58–99; PULSE 61–88; RESP 16–20; TEMP 36.6–36.7; O2SAT 91–97
[2023-12-19] MEDS: IBUPROFEN 400 MG TABLET PO (00:14)
[2023-12-19] MEDS: ACETAMINOPHEN 325 MG TABLET 975 MG PO ×2 (02:18→16:40)
[2023-12-19] MEDS: MELATONIN 3 MG TABLET PO (02:18)
--- NOTE | 2023-12-19 06:26 | PC.NURSE ---
SHIFT NOTE: Pt fatigued, A&O. Denied pain. However PRN Tylenol and Motrin given for comfort. VSS on RA, afebrile. Up independent in room. Pt slept most of the shift until 0230 when the pt took a walk on the unit then requested something for sleep. PRN Melatonin given and the pt had an emesis about 10 minutes later, senior writer offered to call the MD for an antiemetic, but the pt declined and said that she would not need a medication, she did not like the way they made her feel. Pt acknowledged understanding that she could call at anytime if she changed her mind.
[2023-12-19 06:29] LABS: Basophils Percent Auto 0.1 % (0.0-3.0); Eosinophils Percent Auto 0.1 % (0.0-7.0); Hematocrit 40.2 % (33.0-51.0); Immature Granulocytes Pct Auto 0.1 %; Lymphocytes Percent Auto 15.6 % (20-44); Mean Corpuscular HGB Conc 32 gm/dL (32-36); Mean Corpuscular Hemoglobin 32 pg (26-34); Mean Corpuscular Volume 98 fL (80-100); Monocytes Percent Auto 5.6 % (0.0-11.0); Neutrophils Percent Auto 78.5 % (42.0-72.0); Platelet Count* 144 K/uL (140-440); RDW Coefficient of Variation % 12.7 % (11.5-15.5); Red Blood Count 4.11 m/uL (4.00-5.20); White Blood Count* 12.13 K/uL (4.50-11.00)
[2023-12-19 06:35] LABS: Slide Review Reflex No
[2023-12-19 06:55] LABS: Chloride* 104 mmol/L (96-114); Potassium* 4.2 mmol/L (3.6-5.1); Sodium* 140 mmol/L (135-149)
[2023-12-19 06:58] LABS: Anion Gap 6 mEq/L (7-15); Blood Urea Nitrogen* 26 mg/dL (7-30); Carbon Dioxide* 30 mmol/L (20-32); Creatinine* 0.7 mg/dL (0.5-1.5); Est. Creatinine Clearance* 55.27; Estimated Glomerular Filt Rate 97 ml/min
[2023-12-19 06:59] LABS: Calcium* 8.9 mg/dL (8.4-10.6); Glucose* 106 mg/dL (60-115)
[2023-12-19] MEDS: cefTRIAXone 1 GM in 0.9 % SODIUM CHLORIDE Mini-bag 100 ML IVPB (13:55)
[2023-12-19] MEDS: AZITHROMYCIN 250 MG TABLET PO (13:55)
--- NOTE | 2023-12-19 15:05 | P.IMPN_ITS ---
Progress Note: A&P Assessment and plan (1) Pneumonia: Problem details: - community acquired Strep Pneumonia - Ceftriaxone and Azithromycin (5/2) - supplemental oxygen, cough suppressants, RT referral, fever management - sputum Gram stain suboptimal specimen, sputum culture growing pneumo, BC x2 NGTD, UC mixed jones - afebrile, no longer requiring oxygen supplement Status: Acute (2) Breast cancer: Problem details: - T1b N0 M0 triple negative grade 3 left breast - diagnosed January 2023; s/p chemotherapy, radiation, lumpectomy. Began active surveillance August 2023 Status: Acute Plan Continue IV antibiotics, transitioning to oral, pending clinical improvement, possible discharge 08/19 days Time Spent With Patient Total time spent: Total time spent caring for the patient today was 45 minutes. This includes time spent for the visit reviewing the chart, time spent during the visit, time spent after the visit and documentation and planning in coordination of care. Subjective Date Seen: 12/19/23 Interval history: Patient reports feeling better this morning. Still somewhat weak. Has remained afebrile. Oxygen saturation adequate on room air. Denies chest pain or shortness of breath. Still has a minimal appetite. Was nauseous overnight but this has since improved. Exam Narrative: Exam Narrative: PHYSICAL EXAM General: Pleasant, conversant, NAD HEENT: Normocephalic, atraumatic, sclera white, EOMI, oral mucosa moist Cardiovascular: RRR, S1S2. No pitting edema Pulmonary: CTA bilaterally without rhonchi, rales, expiratory wheezes. No dyspnea on room air Abdominal: Soft, nondistended, NTTP Neurological: Alert, answering questions appropriately, cranial nerves intact, no focal findings Extremities: No gross joint deformity or swelling. AROMI. Neurovascularly intact Skin: Warm, dry. Const: Vital Signs, click to edit/add: Vital Signs - 24 hr 12/18/23 19:00 12/18/23 23:00 12/18/23 23:00 Temperature 98.1 F Pulse Rate [Left D orsalis Pedis] 76 76 Pulse Rate [Right Pulse Oximeter] Respiratory Rate 20 20 20 Blood Pressure [Ri ght Arm] 124/76 Pulse Oximetry 95 96 Oxygen Delivery Me thod Room Air Room Air 12/18/23 23:00 12/19/23 02:37 12/19/23 07:00 Temperature 98.1 F 97.9 F Pulse Rate [Left D orsalis Pedis] 81 88 Pulse Rate [Right Pulse Oximeter] Respiratory Rate 20 20 16 Blood Pressure [Ri ght Arm] 129/73 128/66 Pulse Oximetry 96 95 97 Oxygen Delivery Me thod Room Air Room Air Room Air 12/19/23 07:00 12/19/23 11:00 12/19/23 14:03 Temperature 98.0 F 97.9 F 97.9 F Pulse Rate [Left D orsalis Pedis] Pulse Rate [Right Pulse Oximeter] 70 70 78 Respiratory Rate 16 16 16 Blood Pressure [Ri ght Arm] 118/58 L 120/60 122/64 Pulse Oximetry 96 95 91 Oxygen Delivery Me thod Room Air Room Air Room Air Labs Labs: Laboratory Results - last 24 hr 12/19/23 05:57 WBC 12.13 H RBC 4.11 Hgb 13.0 Hct 40.2 MCV 98 MCH 32 MCHC 32 RDW Coeff of [place]ay[place] 12.7 Plt Count 144 Neut % (Auto) 78.5 H Lymph % (Auto) 15.6 L [place] % (Auto) 5.6 Eos % (Auto) 0.1 Baso % (Auto) 0.1 Neut # (Auto) 9.50 H Lymph # (Auto) 1.90 [place] # (Auto) 0.70 Eos # (Auto) 0.00 Baso # (Auto) 0.00 Abs Immat Gran (auto) 0.00 Imm/Tot Granulo (auto) 0.1 Sodium 140 Potassium 4.2 Chloride 104 Carbon Dioxide 30 Anion Gap 6 L BUN 26 Creatinine 0.7 Estimated Creat Clear 55.27 Estimated GFR 97 Glucose 106 Calcium 8.9 Procalcitonin 1.80 H
--- NOTE | 2023-12-19 19:24 | PC.NURSE ---
End of Shift: Flat affect.. soft spoken. No fevers, VSS on RA, IV abx continue awaiting culture results. Up ad genesis as tolerated. The patient reports a decreased appetite. Did eat something small for dinner. IV in LAC. Voiding fine.. encouraged fluid intake. Calls appropriately. Dominga TOLEDO BSN
[2023-12-19] MEDS: ENOXAPARIN 40 MG/0.4 ML INJ SUBCUT (21:28)
[2023-12-19] MEDS: SODIUM CHLORIDE 0.9 % (FLUSH) 10 ML SYRINGE 5 ML IVF (21:28)
[2023-12-20] MEDS: ACETAMINOPHEN 325 MG TABLET 975 MG PO (02:54)
[2023-12-20 03:00] VITALS: RESP 18
[2023-12-20 06:00] VITALS: RESP 18
[2023-12-20 06:42] LABS: Hemoglobin* 12.5 gm/dL (12.0-16.0); Mean Corpuscular HGB Conc 33 gm/dL (32-36); Mean Corpuscular Hemoglobin 32 pg (26-34); Mean Corpuscular Volume 98 fL (80-100); Platelet Count* 160 K/uL (140-440); Red Blood Count 3.88 m/uL (4.00-5.20); White Blood Count* 6.75 K/uL (4.50-11.00)
[2023-12-20 06:57] LABS: Chloride* 104 mmol/L (96-114); Potassium* 3.5 mmol/L (3.6-5.1); Sodium* 140 mmol/L (135-149)
[2023-12-20 07:00] LABS: Anion Gap 8 mEq/L (7-15); Blood Urea Nitrogen* 28 mg/dL (7-30); Calcium* 8.8 mg/dL (8.4-10.6); Carbon Dioxide* 28 mmol/L (20-32); Creatinine* 0.6 mg/dL (0.5-1.5); Est. Creatinine Clearance* 55.27; Estimated Glomerular Filt Rate 100 ml/min; Glucose* 88 mg/dL (60-115)
[2023-12-20 07:29] LABS: Slide Review Reflex No
[2023-12-20 08:19] VITALS: BP 134/80; PULSE 71; RESP 16; TEMP 36.7; O2SAT 95
--- NOTE | 2023-12-20 10:32 | P.DS_ITS ---
DS: Providers Provider Date Seen: 12/20/23 Date of admission: 12/18/23 14:32 Primary care physician: Juan Manuel Chase MD Admitting Clinician: Jacqueline Ruiz MD Consults: 12/18/23 14:53 Consult to Respiratory Therapy [CONS] Routine Comment: Reason(s) for RT Consult:: Consult Attending Physician on discharge: Sonia Rod, CALI, PALanieC [place] [facility]ist Date of Discharge: 12/20/23 DS: Diagnosis Discharge Diagnosis (1) Pneumonia: Status: Acute Problem details: Community acquired Strep Pneumonia, confirmed lab testing, sputum Gram stain suboptimal specimen, sputum culture growing pneumo, BC x2 NGTD, UC mixed jones. Initiated on Ceftriaxone and Azithromycin (12/17), transitioned to oral azithromycin and cefuroxime on discharge. Will continue Mucinex and antihistamine at home. Has remained afebrile and no longer requiring oxygen for > 24 hours. Outpatient follow-up with PCP. (2) Breast cancer: Status: Acute Problem details: - T1b N0 M0 triple negative grade 3 left breast - diagnosed January 2023; s/p chemotherapy, radiation, lumpectomy. Began active surveillance August 2023 DS: Summary Hospital Course Hospital Course: [age] year old female past medical history significant for breast cancer status post chemo and radiation therapies, GERD, arthralgia, multiple medication allergies was admitted to the medical floor for management a acquired pneumonia. Course of care and details as noted above. Patient showed significant clinical improvement during hospital course, discharged on oral antibiotics, outpatient follow-up with PCP. Remainder of chronic medical comorbidities were monitored and managed with home medications. Status at Discharge Functional status at discharge: independent ambulation Overall status at discharge: patient is back to baseline Time Spent with Patient Time attestation: Total time spent providing and/or coordinating discharge services: Time spent: Greater than 30 minutes Exam Narrative: Exam Narrative: PHYSICAL EXAM General: Pleasant, conversant, NAD Cardiovascular: RRR Pulmonary: No dyspnea Neurological: Alert, answering questions appropriately Skin: Warm, dry. Const: Vital Signs, click to edit/add: Vital Signs - 24 hr 12/19/23 11:00 12/19/23 14:03 12/19/23 15:00 Temperature 97.9 F 97.9 F Pulse Rate [Right Pulse Oximeter] 70 78 Respiratory Rate 16 16 16 Blood Pressure [Ri ght Arm] 120/60 122/64 Pulse Oximetry 95 91 93 Oxygen Delivery Me thod Room Air Room Air Room Air 12/19/23 20:11 12/19/23 21:32 12/19/23 21:32 Temperature 97.9 F 97.9 F Pulse Rate [Right Pulse Oximeter] 74 61 Respiratory Rate 16 16 16 Blood Pressure [Ri ght Arm] 138/99 H 132/65 Pulse Oximetry 97 93 Oxygen Delivery Me thod Room Air Room Air 12/19/23 21:32 12/19/23 23:35 12/20/23 03:00 Temperature Pulse Rate [Right Pulse Oximeter] Respiratory Rate 16 16 18 Blood Pressure [Ri ght Arm] Pulse Oximetry 93 Oxygen Delivery Me thod Room Air 12/20/23 06:00 12/20/23 08:19 12/20/23 08:19 Temperature 98.0 F Pulse Rate [Right Pulse Oximeter] 71 Respiratory Rate 18 16 16 Blood Pressure [Ri ght Arm] 134/80 Pulse Oximetry 95 95 Oxygen Delivery Me thod Room Air Room Air DS: Data Data Completed and Pending Labs on day of discharge: Labs from last 24 hours 12/20/23 06:04 WBC 6.75 RBC 3.88 L Hgb 12.5 Hct 38.0 MCV 98 MCH 32 MCHC 33 Plt Count 160 Sodium 140 Potassium 3.5 L Chloride 104 Carbon Dioxide 28 Anion Gap 8 BUN 28 Creatinine 0.6 Estimated Creat Clear 55.27 Estimated GFR 100 Glucose 88 Calcium 8.8 C-React Prot High Sens Pending Preliminary micro results at discharge 12/18/23 11:55 Blood Culture - Preliminary Blood NO GROWTH AFTER 24 HOURS 12/18/23 11:45 Blood Culture - Preliminary Blood NO GROWTH AFTER 24 HOURS 12/18/23 11:55 Sputum Culture - Preliminary Sputum - Expectorated Sputum 12/18/23 Unknown Urine Culture - Preliminary Urine,Clean Catch < 50,000 COL/ML MIXED GRAM POSITIVE JONES ISOLATED NO FURTHER WORKUP Discharge Plan Discharge Disposition: Home, Self-Care Date of Admission: 12/18/23 14:32 Attending Provider on Discharge: Sonia Rod Primary Care Provider: Juan Manuel Chase Condition: Improved Anticipated Discharge Date/Time: 12/20/23 09:59 Discharge Medications: New azithromycin 250 mg Tablet 250 mg PO Q24H Qty: 3 0RF Taper: Z-HERMELINDA 250 mg Q24H for 3 Days and 0 Hour cefuroxime axetil 500 mg tablet 500 mg PO BID Qty: 10 0RF Continued cholecalciferol (vitamin D3) 10 mcg (400 unit) tablet 400 unit PO DAILY Rx Instructions: orally every day; acetaminophen [Tylenol Extra Strength] 500 mg tablet 500 mg PO Q6H PRN Discharge Orders: Discharge Order (Routine); Ordered 12/20/23 Ordered By: Sonia Rod Patient Education: Cefuroxime (By mouth), Azithromycin (By mouth), Bacterial Pneumonia (GEN) Activity Level: No Restrictions Discharge Diet: Regular Follow Up Appointments: Sharri Lester PA-C [Referring] - 12/22/23 11:35 am ([facility] for follow up. PCP not available at this time.) Juan Manuel Chase MD [Primary Care Provider] - (Post hospital follow up 5-7 days for CAP) Forms: [facility] Inst[facility]
== END 2023-12-20 11:03 | disposition home or self-care (01) | DRG 139 ==
LOC: ED 13:25 → MEDSURG 14:11
PROVIDERS: Family Medicine; Internal Medicine; Physician Assistant; Admitting Provider Family Medicine; Emergency Provider Family Medicine; PCP Family Medicine; Visit Provider Family Medicine
DX: J13 Pneumonia due to Streptococcus pneumoniae (principal); C50.912 Malignant neoplasm of unspecified site of left female breast; Z17.1 Estrogen receptor negative status [ER-]; F32.A Depression, unspecified; K21.9 Gastro-esophageal reflux disease without esophagitis
CPT/HCPCS: 36415; 71045; 80048; 80053; 81001; 83605; 84145; 84484; 85025; 85027; 85379; 86140; 86141; 87040; 87070; 87086; 87186; 87449; 87631; 87899; 93005; 94664; 99285; A9270; J0696; J1650; J7030

== ENCOUNTER 2024-06-10 15:28 | Outpatient (CLI) | payer MEDICARE, BC, SELFPAY ==
--- OUTSIDE RECORDS SUMMARY | 2024-06-10 15:31 | XMS_ITS | Referral Summary ---
Author Organization [facility] Address [address] [place] [address] Care Team Providers Care Landscaping Specialist Name Role Phone Unavailable Primary Care Provider Unavailabl e Source Comments Patient records contain information from all sites at [facility]. For routine questions regarding patient records, call [phone] during business hours, M-F 8:00 AM - 5:00 PM Central Time. Record requests for emergency care only can be directed to [phone] at any time.[facility] Medications erythromycin (ROMYCIN) 5 mg/gram (0.5 %) ophthalmic ointment Apply 1 strip to affected eye(s). 3 Active glucosamine-cho ndroitin (GLUCOSAMINE-CH ONDROITIN) 500-400 mg per capsule Take 1 capsule by mouth daily. 1 Active calcium carbonate-vitam in D3 1,500 mg (600 mg calcium)-10 mcg (400 Unit) per tablet Take 1 tablet by mouth. 1 Active mometasone (ELOCON) 0.1 % cream Apply 1 Application topically as directed. Apply to left breast twice daily starting on the 1st day of radiation treatment. Continue for 10 days following the completion of radiation treatment. 30 g 1 3 Active Active Problems Problem Noted Date Diagnosed Date Malignant Neoplasm Of Breast Upper Outer Quadrant Female Left 02/07/2023 Cancer Staging:Clinical stage from 02/04/2023:Stage IB(cT1b, cN0, cM0, G2, ER-, WV-, HER2-) - Unsigned Pathologic stage from 06/12/2023: ypT0, pN0(sn), cM0, ER-, WV-, HER2- - Unsigned Overview (07/03/2023): January 2023: Invasive ductal carcinoma with approximately [...] your living situation today? I have a [facility] place to live 07/15/2023 Comments Unknown Sex and Gender Information Value Date Recorded Sex Assigned at Female 07/15/2023 7:17 PM RESIDENTIAL HOUSEKEEPER Legal Sex Female 7:18 AM RESIDENTIAL HOUSEKEEPER Gender Identity Female 07/15/2023 7:17 PM RESIDENTIAL HOUSEKEEPER Sexual Orientation Straight 07/15/2023 7: 17 PM RESIDENTIAL HOUSEKEEPER Last Filed Vital Signs Vital Sign Reading Time Taken Comments Blood Pressure 125/49 07/08/2023 12:50 PM RESIDENTIAL HOUSEKEEPER Pulse 75 07/08/2023 12:50 PM RESIDENTIAL HOUSEKEEPER Temperature 36.2 ??C (97.1 ??F) 07/23/2023 1:12 PM CS T Respiratory Rate - - Oxygen Saturation - - Inhaled Oxygen Concentration - - Weight 86.3 kg (190 lb 4.1 oz) 07/23/2023 1:12 P M RESIDENTIAL HOUSEKEEPER Height - - Body Mass Index - - Plan of Treatment Not on file Procedures Procedure Name Priority Date/Time Associated Diagnosis Comments OUTSIDE MG MAMMOGRAM Routine 01/28/2023 2:15 PM CDT from Last 3 Months or Most Recently Relevant to Health Maintenance Results * XR MAMMO JILLIAN UNI ADDL VIEWS LEFT-Outside Mammogram (01/28/2023 2:15 PM CDT) Narrative IIMS - 07/01/2023 11:30 AM RESIDENTIAL HOUSEKEEPER This order has been created and auto-finalized to support the import of outside images. If available, original interpretation can be found on the Media Tab in Chart Review, in Document Viewer, or as an image in QREADS. If a re-interpretation or overread is required please follow defined workflow. ?? us Provider Not In System IMG BI PROCEDURES Final R esult IIMS NA from Last 3 Months or Most Recently Relevant to Health Maintenance Insurance [facility]
--- OUTSIDE RECORDS SUMMARY | 2024-06-10 15:31 | XMS_ITS ---
Author Organization [facility] Address [address] [place] [address] Care Team Providers Care Broadcast News Producer Name Role Phone Unavailable Unavailable Unavailable Surgery Details Not on file Complications Check Surgery Details section. Procedure Estimated Blood Loss Check Surgery Details section. Procedure Findings Check Surgery Details section. Procedure Specimens Taken Check Surgery Details section.
--- OUTSIDE RECORDS SUMMARY | 2024-06-10 15:31 | XMS_ITS | Clinical Summary ---
Author Organization [facility] Address [place], [place] [address] Care Team Providers Care City Mail Carrier Name Role Phone Juan Manuel Ho MD Primary Care Provider [phone] Allergies Active Allergy Reactions Criticality Noted Date Comments Zolpidem Headache 02/27/2011 Ciprofloxacin Arthralgia 01/09/2023 Pain head to toe. Difficulty walking. Nickel Hives 08/30/2008 Copper and cobalt also Penicillins Hives 01/03/2006 Sodium Lauryl Sulfate Other - Describe I n Comment Field 02/27/2011 Mouth sores Streptococcus Other - Describe In Comment Field 08/30/2008 Was skin tested at [facility] in 1979. (See letter scanned 08/2008) Sulfa (Sulfonamide Antibiotics) Nausea Only 01/03/2006 Yeast, Dried Other - Describe In Comment Field 08/30/2008 Was tested at [facility] in 1979. (See letter scanned 08/2008) Ondansetron Headache Medium 05/16/2023 Severe headache Medications Medication Sig Dispensed Refills Start Date End Date Status calcium carbonate-vitamin D3, 600 mg-400 unit, (CALCIUM WITH VITAMIN D) tablet Take 1 tablet by mouth 2 times daily with meals. 60 tablet 0 02/27/2011 Active glucosamine-chondroi tin, 500-400 mg, (COSAMIN DS 500/400) 500-400 mg Cap Take 1 capsule by mouth once daily. 30 capsule 0 02/27/2011 Active azithromycin (ZITHROMAX) 250 mg tablet As directed 250 mg every 24 hours. 12/20/2023 Active cefuroxime axetil (CEFTIN) 500 mg tablet Take 500 mg by mouth two times daily. 12/20/2023 Active Active Problems Problem Noted Date Diagnosed Date Streptococcal pneumonia 01/10/2024 Overview (01/10/2024): December 2023: CAP Strep pneumonia admitted to [facility]. 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 Dallas grade: III of III; Dallas score: 8 of 9. Stage IA anatomic, Stage I B Prognostic, T1b No Monofilament, triple negative grade 3-. Seeing Dr. Elias for Oncology. Pap smear for cervical cancer screening 10/01/19 Overview (11/07/2021): 09/2021 NIL/HPV negative Plan: Routine screening Migraine without aura and wi thout status migrainosus, not intractable 09/21/2020 Gluten intolerance 09/21/2020 Overview (09/21/2020): 2014 approximately stopped eating gluten although not extremely strict. No formal celiac testing prior to September 2020. Could be false negative. 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 1 10/01/2023 Transportation Needs Answer Date Record ed Lack of Transportation (Medical) 1 10/01/2023 Housing Stability Answer Date Recorded What is your housing situation today? 1 10/01/2023 Sex and Gender Information Value Date Recorded Sex Assigned at Not on file Gender Identity Not on file Sexual Orientation Not on file Obstetrics History Last Filed Vital Signs Vital Sign Reading Time Taken Comments Blood Pressure 130/77 12/22/2023 11:38 AM CDT Pulse 67 12/22/2023 11:38 AM CDT Temperature 36.9 ??C (98.4 ??F) 08/20/2010 8:26 AM CS T Respiratory Rate 18 11/19/2023 8:40 AM CDT Oxygen Saturation 97% 12/22/2023 11:38 AM CDT Inhaled Oxygen Concentration - - Weight 84.2 kg (185 lb 9.6 oz) 12/22/2023 11:38 AM CDT Height 169.2 cm (5' 6.61) 10/16/2023 8:00 AM CS T Body Mass Index 29.41 10/16/2023 8:00 AM TAR CHASER Plan of Treatment Health Maintenance Due Date Last Done Comments COVID-19 vaccine series ( season) 2024 06/02/2023, 02/24/2023, 06/11/2022, Additional history exists DEXA/DXA scan for age 65+ 2024 Influenza for age 65+ 2024 04/28/2023 , 04/12/2022, 05/05/2021, Additional history exists Pneumococcal series for age 65+ (2 of 2 - PPSV23 or PCV20) 2024 02/04/2018 Pap test for age 21-65 10/01/2024 , 10/01/2021, 11/26/2013, Additional history exists BMI (ht and wt on same day) for age 18+ 10/15/2024 10/16/2023, 05/16/2023, 02/24/2023, Additional history exists Depression screening for age 12+ 10/16/2024 10/17/2023, 10/16/2023, 10/16/2023, Additional history exists HIV for age 15-65 11/29/2024 Postponed from 1974 (Patient discretion) Mammogram for age 45-75 01/29/2025 01/30/20, 06/12/2023, 01/28/2023, Additional history exists Lipids for age 45-75 10/12/2026 10/12/2021, 09/28/2020, 03/06/2010, Additional history exists Tetanus booster 02/05/2028 02/04/2018, 12/08/2007, 07/18/2008 Colonoscopy through age 75 11/18/202811/18, 11/19/2023, 11/19/2023, Additional history exists Tdap Completed 02/04/2018 Zoster (shingles) series for age 50+ Completed 06/24/2018, 03/04/2018 Hepatitis C screening for age 18-79 Completed 10/12/2021 Procedures Procedure Name Priority Date/Time Associated Diagnosis Comments XR MAMMO JILLIAN BILAT SCREEN Routine 01/30/2024 8:11 AM CDT Visit for screening mammogram COLONOSCOPY SCREENING Routine 11/19/2023 6:57 AM CDT Screen for colon cancer ANTI HCV Routine 10/12/2021 7:27 AM TAR CHASER Need for hepatitis C screening test LIPID PANEL W REFLEX MEASURED LDL Routine 10/12/2021 7:27 AM TAR CHASER Screening cholesterol level DETAIL SUPERVISOR THIN PREP PAP SCREEN IMAGED Routine 10/01/2021 8:11 AM TAR CHASER Cervical cancer screening from Last 3 Months or Most Recently Relevant to Health Maintenance Results * XR MAMMO JILLIAN BILAT SCREEN (01/30/2024 8:11 AM CDT) Anatomical Region Laterality Modality BREASTS, Breast Left, Breast Right Bilateral Mammography Impressions 01/30/2024 11:49 AM CDT ??There is no radiographic evidence for malignancy. ??Recommend annual mammograms. MAMMOGRAM ASSESSMENT: ??ACR 2 Benign PATIENTS: You will also receive a letter with your examination results in an easy to read format. ??If you have questions about your results, please contact your referring provider. Narrative 01/30/2024 11:49 AM CDT For Patients: As a result of the Century Cures Act, medical imaging exams and procedure reports are released immediately into your electronic medical record. You may view this report before your referring provider. If you have questions, please contact your health care provider. XR MAMMO JILLIAN BILAT SCREEN [[id number]] CLINICAL HISTORY: ??This is an asymptomatic 63 y.o. patient. INDICATION FOR EXAM: Mammogram Screening. TECHNIQUE: CC & MLO views were obtained. ??This study was evaluated with the assistance of Computer-Aided Detection. Breast Tomosynthesis was used in interpretation. COMPARISON FILMS: Yes 01/23/23 [facility] 10/01/21 [facility] FINDINGS: ??The breasts are heterogeneously dense, which may obscure small masses. ??No suspicious masses or microcalcifications. ??There are post treatment changes of left breast. Juan Manuel Ho MD MAMMO * COLONOSCOPY (11/19/2023 7:37 AM CDT) 11/19/2023 7:37 AM CDT Narrative Transcriptions Ruperto Cain MD - 11/19/2023 8:37 AM CDT Patient Name: Audrey Urban Procedure Date: 11/19/2023 Gender: Female Date of : 1960 Admit Type: Outpatient Procedure: Colonoscopy Proceduralist: Ruperto Cain MD , Jacqueline Miller (Nurse), Clare Robles, RN (Nurse) Referring MD: Juan Manuel Ho Indications/Pre-Op Diagnosis: Screening for colorectal malignant neoplasm, Last colonoscopy: date unknown (unable to locate last colonoscopy report) Medications: Fentanyl 100 micrograms IV, Midazolam 2 mgIV, The level of sedation administered wasmoderate Procedure Description: The patient had risks, benefits and alternatives explained to andgave informed consent. The patient had a stable cardiopulmonary status and judged an adequate candidate for conscious sedation. The endoscope [id number]-[id number] was passed through the anus andadvanced to [...] there are any questions, please contact the internal control specialist. Moderate Sedation: A time out was performed [...] 7:37 AM Procedure Code(s): --- Professional --- 75390, Colonoscopy, flexible; with biopsy, single or multiple Diagnosis Code(s): --- Professional --- Z12.11, Encounter for screening formalignant neoplasm of colon D12.2, Benign neoplasm of ascending colon K57.30, Diverticulosis of large intestine without perforation or abscess withoutbleeding CPT copyright 2021 [employer]. All rights reserved. The codes documented in this report are preliminary and upon yard supervisor cotton gin reviewmay be revised to meet current compliance requirements. Scope In: 8:12:12 AM Scope Withdrawal Time 0 hours 11 minutes 12 seconds Scope Out: 8:27:16 AM Ruperto Cain MD PROCEDURE ORD * (ABNORMAL) LIPID PANEL W REFLEX MEASURED LDL (10/12/2021 7:27 AM TAR CHASER) CHOLESTEROL,TOTAL 203(H) 100 - 199 mg/dL 10/12/2021 5:24 PM TAR CHASER [facility] TRIGLYCERIDES 139 <150 mg/dL 10/12/2021 5:24 PM TAR CHASER [facility] HDL CHOLESTEROL 55 >40 mg/dL 5:24 PM TAR CHASER [facility] NON-HDL CHOLESTEROL 148(H) <145 mg/dl 10/12/2021 5:24 PM TAR CHASER [facility] CHOL/HDL RATIO 3.69 <4.50 10/12/2021 5:24 PM TAR CHASER [facility] LDL CHOLESTEROL 120 <=130 mg/dL 10/12/2021 5:24 PM TAR CHASER [facility] VLDL CHOLESTEROL 28 <=30 mg/dL 10/12/2021 5:24 PM TAR CHASER [facility] PROVIDER ORDERED STATUS FASTING 10/12/2021 5:24 PM TAR CHASER [facility] Blood BLOOD SPECIMEN / Unknown Venipuncture / Unknown 10/12/2021 7:27 AM TAR CHASER 10/12/2021 7:27 AM TAR CHASER Juan Manuel Ho MD CHEMISTRY Performing Organization Address City/[facility]/ZIP Co de Phone Number [facility] [address] [place] [address], * ANTI HCV (10/12/2021 7:27 AM TAR CHASER) Pathologist [facility] HEPATITIS C ANTIBODY Non-React mariola Non-React mariola 10/12/2021 5:44 PM TAR CHASER [facility] Comment:Antibodies to HCV no t detected; does not exclude the possibility of exposure to HCV. Blood BLOOD SPECIMEN / Unknown Venipuncture / Unknown 10/12/2021 7:27 AM TAR CHASER 10/12/2021 7:27 AM TAR CHASER Juan Manuel Ho MD SEND OUTS Performing Organization Address [facility] Co de Phone Number [facility] [address] * DETAIL SUPERVISOR THIN PREP PAP SCREEN IMAGED (10/01/2021 8:11 AM TAR CHASER) Pathologist [facility] Case Report Gynecologic Cytology Report ? Case: [id number] ? Authorizing Provider: ??Juan Manuel Ho MD ?? Collected: ? 10/01/2021 0811 ? Ordering Location: ? [facility] ?? Received: ?10/01/2021 0811 ? Clinic ? First Screen: ?Bacchintan, Mary Jo ? Specimen: ?DETAIL SUPERVISOR ThinPrep Vial Screening, Cervical ? 10/09/2021 3:01 PM TAR CHASER [facility] INTERPRETATION/ RESULT NEGATIVE FOR INTRAEPITHELIAL LESION OR MALIGNANCY (NIL) (none) 10/09/2021 3:01 PM TAR CHASER [facility] IMEN ADEQUACY Satisfactory for evaluation No endocervical component seen 10/09/2021 3:01 PM TAR CHASER [employer] [facility] HPV REQUEST HPV if ASCUS 10/09/2021 3:01 PM TAR CHASER [employer] [facility] Date of LMP NA 10/09/2021 3:01 PM TAR CHASER [employer] [facility] Last Pap Date 2014 10/09/2021 3:01 PM TAR CHASER [employer] Last Pap Result NIL 3:01 PM TAR CHASER [employer] [facility] Abnormal Pap or Willard Bx in last 5 years No 10/09/2021 3:01 PM TAR CHASER [employer] [facility] Menstrual Status Postmenopausal 10/09/2021 3:01 PM TAR CHASER [facility] Willard Bx Done Today No 10/09/2021 3:01 PM TAR CHASER [facility] Additional Information None given 10/09/2021 3:01 PM TAR CHASER [facility] Comment: Cytology is screened at [facility] [place] [facility] - [address], [place] [address] and [facility] - [address], [place] [address] and [facility] - [address] [place] [address] [facility] [place] [facility] - [address], [place] [address] Automated Review Successful 10/09/2021 3:01 PM [facility] Comment:Specimen processed s uccessfully by automated flash oven operator device, ThinPrep Imaging System, [employer] Note The pap test is a screening technique, not a diagnostic procedure. It is used primarily to screen for squamous cancers and precursor lesions. Published studies have shown that it is subject to both false negative and false positive results. The pap test should not be used as the sole means to diagnose or exclude pre-malignant and malignant lesions. 10/09/2021 3:01 PM [facility] Other (Cervical) Non-Blood / Unknown 10/01/2021 8:11 AM TAR CHASER 10/01/2021 8:11 AM TAR CHASER Juan Manuel Ho MD PATHOLOGY/CYTOLOG Y [facility] [address] [place] [address], [place] from Last 3 Months or Most Recently Relevant to Health Maintenance Care Teams City Mail Carrier Relationship Specialty Start Date End Date Juan Manuel Ho MD [address] [place] [address] PCP - General Family Practice 02/06/23
--- OUTSIDE RECORDS SUMMARY | 2024-06-10 15:31 | XMS_ITS | Clinical Summary ---
Author Organization [facility] Address [address] [place] [address] Care Team Providers Care Diesel Engine Erector Name Role Phone Unavailable Primary Care Provider Unavailabl e Source Comments Patient records contain information from all sites at [facility]. For routine questions regarding patient records, call [phone] during business hours, M-F 8:00 AM - 5:00 PM Central Time. Record requests for emergency care only can be directed to [phone] at any time.[facility] Medications erythromycin (ROMYCIN) 5 mg/gram (0.5 %) [...] from 02/04/2023:Stage IB(cT1b, cN0, cM0, G2, ER-, GA-, HER2-) - Unsigned Pathologic stage from 06/12/2023: ypT0, pN0(sn), cM0, ER-, GA-, HER2- - Unsigned Overview (07/03/2023): January 2023: [...] your living situation today? I have a [facility] place to live 07/15/2023 Comments Unknown Sex and Gender Information Value Date Recorded Sex Assigned at Female 07/15/2023 7:17 PM AUTHORIZATION NURSE Legal Sex Female 7:18 AM AUTHORIZATION NURSE Gender Identity Female 07/15/2023 7:17 PM AUTHORIZATION NURSE Sexual Orientation Straight 07/15/2023 7: 17 PM AUTHORIZATION NURSE Last Filed Vital Signs Vital Sign Reading Time Taken Comments Blood Pressure 125/49 07/08/2023 12:50 PM AUTHORIZATION NURSE Pulse 75 07/08/2023 12:50 PM AUTHORIZATION NURSE Temperature 36.2 ??C (97.1 ??F) 07/23/2023 1:12 PM CS T Respiratory Rate - - Oxygen Saturation - - Inhaled Oxygen Concentration - - Weight 86.3 kg (190 lb 4.1 oz) 07/23/2023 1:12 P M AUTHORIZATION NURSE Height - - Body Mass Index - - Plan of Treatment Health Maintenance Due Date Last Done Comments Bone Density Scan (Osteoporosis Screen) 1960 CT Colonography 1960 Cervical Cancer Screening 1960 Cologuard 1960 FIT 1960 HIV Screening 1960 Hepatitis C Screening 1960 Pneumococcal vaccine (65+ years) (2 of 2 - PPSV23 or PCV20) 04/01/2018 02/04/2018 Depression Screening (Annual PHQ-2) 08/18/2023 COVID-19 Vaccine ( season) 2024 06/02/2023, 02/24/2023, 06/11/2022, Additional history exists Influenza Vaccine (#1) 2024 , 04/12/2022, 05/05/2021, Additional history exists Fall Risk Screen (Annual) 2024 Mammogram 01/29/2025 01/30/2024, 01/16, 01/28/2023, Additional history exists Fasting Glucose for Diabetes Screening 10/16/2026 10/17/2023, 10/12/2021, 09/28/2020 DTaP,Tdap,and Td Vaccines (2 - Td or Tdap) 02/05/2028 02/04/2018, 07/18/2008 Colonoscopy 11/18/2033 11/19/2023 Colorectal Cancer Screening 11/18/2033 Zoster Vaccines Completed 06/24/2018, 03/04/2018 HPV Vaccines Aged Out No longer eligi ble based on patient's age to complete this topic Procedures Procedure Name Priority Date/Time Associated Diagnosis Comments OUTSIDE MG MAMMOGRAM Routine 01/28/2023 2:15 PM CDT from Last 3 Months or Most Recently Relevant to Health Maintenance Results * XR MAMMO JILLIAN UNI ADDL VIEWS LEFT-Outside Mammogram (01/28/2023 2:15 PM CDT) Narrative IIMS - 07/01/2023 11:30 AM AUTHORIZATION NURSE This order has been created and auto-finalized [...] Most Recently Relevant to Health Maintenance Insurance [facility] Member Subscriber Plan / Payer (Ef fective 2022-Present) Name:YANG URBAN Relation to Subscriber:Spouse Name:RANJITH URBAN Address: [address] [place] [address] Payer ID:Not on file Type:PPO Address: [facility] [id number] [place] [id number]
--- OUTSIDE RECORDS SUMMARY | 2024-06-10 15:31 | XMS_ITS ---
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 Kelsie grade: III of III; Mead score: 8 of 9. Stage IA anatomic, Stage I B Prognostic, T1b No Monofilament, triple negative grade 3-. Seeing Dr. Elias for Oncology. Current Oncology Plans No current plan information found. Past Plans No past plan information found. Radiation Treatments * Plan Last Treated On Elapsed Days Fractions Treated Prescribed Fraction Dose Prescribed Total Dose [id number] 07/25/2023 10 4 of 4 250 cGy 1,000 cGy [id number] 07/21/2023 6 5 of 5 520 cGy 2,600 cGy Reference Point Last Treated On Elapsed Days Session Dose Total Dose [id number] 07/25/2023 10 250 cGy 3,600 cGy
--- OUTSIDE RECORDS SUMMARY | 2024-06-10 15:31 | XMS_ITS | Clinical Summary ---
Author Organization [facility] Address [address] [place] [address] Care Team Providers Care Reflector Driller And Deburrer Name Role Phone No Ref-Primary, Physician Primary Care Provider Allergies Active Allergy Reactions Criticality Noted Date Comments Nickel Hives 08/30/2008 Copper and cobalt also No Clinical Screening - See Comments Other (See Comments) 08/30/2008 Was tested at [place] in 1979. (See letter scanned 08/2008) Penicillin G 10/28/2016 Sodium Lauryl Sulfate Other (See Comments) 02/15 Mouth sores Streptococci 10/28/2016 Streptococcus Antigen Other (See Comments) 08/18 Was tested at [place] in 1979. (See letter scanned 08/2008) Sulfa Antibiotics Nausea 01/03/2006 Yeast Other (See Comments) 08/30/2008 Was tested at [place] in 1979. (See letter scanned 08/2008) Zolpidem Unknown 02/27/2011 Medications glucosamine-cho ndroitin 500-400 MG CAPS per capsule Take 1 capsule by mouth 02/27/2011 Active Active Problems No known active problems Immunizations Name Administration Dates Next Due [id number] Novel Flu 08/26/2009 Influenza (H1N1) 08/24/2009 Influenza [...] Answer Date Recorded PHQ-2 Score 0 08/26/2018 Comments No Sex and Gender Information Value Date Recorded Sex Assigned at Not on file Legal Sex Female 10:18 AM CDT Gender Identity Not on file Sexual Orientation [...] CDT Plan of Treatment Not on file Insurance [facility] OUT OF STATE Care Teams Reflector Driller And Deburrer Relationship Specialty Start Date End Date No Ref-Primary, Physician PCP - General 11/10/18
--- OUTSIDE RECORDS SUMMARY | 2024-06-10 15:31 | XMS_ITS | Referral Summary ---
Author Organization [facility] Address [address] [place] [address] Care Team Providers Care Gravel Wheeler Name Role Phone No Ref-Primary, Physician Primary Care Provider Allergies Active Allergy Reactions Criticality Noted Date Comments Nickel Hives 08/30/2008 Copper and cobalt also No Clinical Screening - See Comments Other (See Comments) 08/30/2008 Was tested at [place] in 1979. (See letter scanned 08/2008) Penicillin G 10/28/2016 Sodium Lauryl Sulfate Other (See Comments) 02/15 Mouth sores Streptococci 10/28/2016 Streptococcus Antigen Other (See Comments) 08/18 Was tested at [place] in 1979. (See letter scanned 08/2008) Sulfa Antibiotics Nausea 01/03/2006 Yeast Other (See Comments) 08/30/2008 Was tested at [place] in 1979. (See letter scanned 08/2008) Zolpidem Unknown 02/27/2011 Medications glucosamine-cho ndroitin 500-400 MG CAPS per capsule Take 1 capsule by mouth 02/27/2011 Active Active Problems No known active problems Immunizations Name Administration Dates Next Due O9h1-67 Novel Flu 08/26/2009 Influenza (H1N1) 08/24/2009 Influenza [...] Plan of Treatment Not on file Insurance [facility] OUT OF STATE Care Teams Gravel Wheeler Relationship Specialty Start Date End Date No Ref-Primary, Physician PCP - General 11/10/18
--- NOTE | 2024-06-10 16:00 | PE_ITS ---
[facility] [address] [facility] [address] Phone:?[phone] Fax:?[phone] Referring Physician Information: Ivana Gross PA-C [address] [facility] [address] Phone:?[phone] Fax:?[phone] Patient:Neeraj Urban D.O.B:?1960 Sex:?Female Phone:?[phone] [facility] MRN:?[id number] Exam Date:?06/10/2024 EXAM: PET/CT EYES TO THIGHS, CANCER INITIAL STAGING CLINICAL INFORMATION: Breast cancer. TECHNICAL INFORMATION: Helical acquisition of data was obtained from the orbits to the upper thighs with reconstruction of 3.75 mm thick images at 3.[address] data was used for attenuation correction. PET scanning was performed through the same anatomic range 58 minutes following administration of 11.56 mCi of 18-FDG delivered intravenously. The patient's glucose at the time of the injection was 95 mg/dL. PET, CT and PET/CT fusion images are interpreted using a computer viewing workstation. PET, CT and PET/CT fusion images were archived and saved in the patient's permanent medical record. COMPARISON: None. INTERPRETATION: Head and Neck: There is a tiny focus of hypermetabolism in the left thyroid lobe (Se 2 Im 62) that is indistinct by CT but has a maximum SUV of 13.8. There are no other abnormal hypermetabolic foci within the head or neck. There is physiologic uptake in the intracranial soft tissues. Chest: There are no abnormal hypermetabolic foci within the chest. Background mediastinal blood pool uptake has a maximum SUV of 3.15. No lung nodules or masses detected on this free-breathing exam. No lymphadenopathy detected. Left breast lumpectomy noted. Abdomen and Pelvis: Solitary hypermetabolic focus in the pelvic inlet (Se 2 Im 223) has a maximum SUV of 10.23 and appears to correspond to a colonic diverticulum, less likely a nonenlarged lymph node. There are no other abnormal hypermetabolic foci within the abdomen or pelvis. Background hepatic parenchymal uptake has a maximum SUV of 4.10. There is physiologic excretion of radiotracer in the urine and bowel. Skeleton, Musculature, and Integument: No abnormal hypermetabolic foci within the skeleton. No luz osteoblastic or osteolytic disease. CONCLUSION: * No findings to suggest metabolically active breast cancer. * Tiny hypermetabolic focus in the left thyroid lobe is indeterminate. Recommend dedicated thyroid ultrasound for further evaluation. * Probable benign focus of hypermetabolism in the pelvic inlet, reflecting physiologic uptake within a colonic diverticulum. If asymptomatic from a gastrointestinal standpoint, then consider follow-up with abdominopelvic CT in 3-6 months to confirm stability. Electronically signed on 06/14/2024 3:06:00 PM by Rajeev Martinez M.D.
== END 2024-06-10 15:29 | disposition home or self-care (01) ==
LOC: RAD 15:30
PROVIDERS: PCP Family Medicine; Visit Provider Physician Assistant
DX: C50.812 Malignant neoplasm of overlapping sites of left female breast (principal); Z17.1 Estrogen receptor negative status [ER-]
CPT/HCPCS: 78815; A9552

== ENCOUNTER 2024-06-17 08:30 | Outpatient (RCR) | payer BC, MEDICARE, SELFPAY ==
--- NOTE | 2024-05-31 13:00 | ONC.NURNOTE ---
Patient calls to report a 7 week history of lower back, right rib and bilateral hip pain. She denies any injury. Patient describes the pain as constant. Reports some relief from Tylenol. Patient is concerned that this could be a sign that her cancer has come back. I offered her an appointment this week to see PAU Goodman for assessment but patient is baby-sitting her grandkids this week and cannot come for an appointment. Patient is scheduled for 06/07.
[2024-06-07 09:49] LABS: Basophils Absolute Auto 0.05 K/uL (0.00-0.30); Basophils Percent Auto 0.6 % (0.0-3.0); Eosinophils Absolute Auto 0.34 K/uL (0.00-0.50); Eosinophils Percent Auto 3.9 % (0.0-7.0); Hematocrit 42.1 % (33.0-51.0); Hemoglobin* 13.7 gm/dL (12.0-16.0); Immature Granulocytes Abs Auto 0.02 K/uL (0.00-0.30); Immature Granulocytes Pct Auto 0.2 %; Lymphocytes Absolute Auto 2.99 K/uL (0.90-2.90); Lymphocytes Percent Auto 34.5 % (20-44); Mean Corpuscular HGB Conc 33 gm/dL (32-36); Mean Corpuscular Hemoglobin 32 pg (26-34); Mean Corpuscular Volume 97 fL (80-100); Monocytes Percent Auto 6.2 % (0.0-11.0); Neutrophils Absolute Auto 4.73 K/uL (1.7-7.0); Neutrophils Percent Auto 54.6 % (42.0-72.0); Platelet Count* 205 K/uL (140-440); RDW Coefficient of Variation % 12.7 % (11.5-15.5); Red Blood Count 4.34 m/uL (4.00-5.20); White Blood Count* 8.67 K/uL (4.50-11.00)
[2024-06-07 09:54] LABS: Slide Review Reflex No
[2024-06-07 10:06] LABS: Albumin* 4.6 g/dL (3.3-5.0); Chloride* 102 mmol/L (96-114)
[2024-06-07 10:07] LABS: Potassium* 4.2 mmol/L (3.6-5.1); Sodium* 137 mmol/L (135-149)
[2024-06-07 10:09] LABS: Anion Gap 9 mEq/L (7-15); Aspartate Amino Transferase* 21 U/L (12-35); Bilirubin Total* 0.3 mg/dL (0.1-1.5); Carbon Dioxide* 26 mmol/L (20-32); Creatinine* 0.7 mg/dL (0.5-1.5); Est. Creatinine Clearance* 52.51; Estimated Glomerular Filt Rate 96 ml/min; Total Protein* 7.5 g/dL (6.0-8.3)
[2024-06-07 10:10] LABS: Alanine Aminotransferase* 13 U/L (4-35); Alkaline Phosphatase* 68 U/L (40-150); Blood Urea Nitrogen* 16 mg/dL (7-30); Calcium* 9.4 mg/dL (8.4-10.6); Glucose* 89 mg/dL (60-115)
[2024-06-09 04:59] LABS: Vitamin D, 1,25-Dihydroxy 51.7 pg/mL (19.9-79.3)
== END 2024-10-05 23:59 | disposition home or self-care (01) ==
LOC: CCIC 08:30
PROVIDERS: PCP Family Medicine; Visit Provider Physician Assistant
DX: C50.912 Malignant neoplasm of unspecified site of left female breast (principal); Z17.1 Estrogen receptor negative status [ER-]; R52 Pain, unspecified; D72.820 Lymphocytosis (symptomatic)
CPT/HCPCS: 36415; 80050; 80053; 82652; 84443; 85025; 99213; 99214; 99215; G0463

== ENCOUNTER 2024-06-24 11:00 | Outpatient (CLI) | payer MEDICARE, BC, SELFPAY ==
--- OUTSIDE RECORDS SUMMARY | 2024-06-24 11:03 | XMS_ITS | Clinical Summary ---
Author Organization [facility] Address [address] [place] [address] Care Team Providers Care Side Panel Hanger Name Role Phone No Ref-Primary, Physician Primary Care Provider Allergies Active Allergy Reactions Criticality Noted Date Comments Nickel Hives 08/30/2008 Copper and cobalt also No Clinical Screening - See Comments Other (See Comments) 08/30/2008 Was tested at [place] in 1979. (See letter scanned 08/2008) Penicillin G 10/28/2016 Sodium Lauryl Sulfate Other (See Comments) 02/15 Mouth sores Streptococci 10/28/2016 Streptococcus Antigen Other (See Comments) 08/18 Was tested at [place] in 1979. (See letter scanned 08/2008) Sulfa Antibiotics Nausea 01/03/2006 Yeast Other (See Comments) 08/30/2008 Was tested at [place] in 1979. (See letter scanned 08/2008) Zolpidem Unknown 02/27/2011 Medications glucosamine-cho ndroitin 500-400 MG CAPS per capsule Take 1 capsule by mouth 02/27/2011 Active Active Problems No known active problems Immunizations Name Administration Dates Next Due U7y2-00 Novel Flu 08/26/2009 Influenza (H1N1) 08/24/2009 Influenza [...] Plan of Treatment Not on file Insurance [facility] OUT OF STATE Care Teams Side Panel Hanger Relationship Specialty Start Date End Date No Ref-Primary, Physician PCP - General 11/10/18
--- OUTSIDE RECORDS SUMMARY | 2024-06-24 11:03 | XMS_ITS | Referral Summary ---
Author Organization [facility] Address [address] [place] [address] Care Team Providers Care Director Of Intelligence Name Role Phone Unavailable Primary Care Provider Unavailabl e Source Comments Patient records contain information from all sites at [facility]. For routine questions regarding patient records, call [phone] during business hours, M-F 8:00 AM - 5:00 PM Central Time. Record requests for emergency care only can be directed to [phone] at any time.[facility] Medications erythromycin (ROMYCIN) 5 mg/gram (0.5 %) [...] from 02/04/2023:Stage IB(cT1b, cN0, cM0, G2, ER-, IA-, HER2-) - Unsigned Pathologic stage from 06/12/2023: ypT0, pN0(sn), cM0, ER-, IA-, HER2- - Unsigned Overview (07/03/2023): January 2023: [...] your living situation today? [facility] 07/15/2023 Comments Unknown Sex and Gender Information Value Date Recorded Sex Assigned at Female 07/15/2023 7:17 PM STILL OPERATOR Legal Sex Female 7:18 AM STILL OPERATOR Gender Identity Female 07/15/2023 7:17 PM STILL OPERATOR Sexual Orientation Straight 07/15/2023 7: 17 PM STILL OPERATOR Last Filed Vital Signs Vital Sign Reading Time Taken Comments Blood Pressure 125/49 07/08/2023 12:50 PM STILL OPERATOR Pulse 75 07/08/2023 12:50 PM STILL OPERATOR Temperature 36.2 ??C (97.1 ??F) 07/23/2023 1:12 PM CS T Respiratory Rate - - Oxygen Saturation - - Inhaled Oxygen Concentration - - Weight 86.3 kg (190 lb 4.1 oz) 07/23/2023 1:12 P M STILL OPERATOR Height - - Body Mass Index - - Plan of Treatment Not on file Procedures Procedure Name Priority Date/Time Associated Diagnosis Comments OUTSIDE NM PET Routine 06/10/2024 5:05 PM CDT OUTSIDE MG MAMMOGRAM Routine 01/28/2023 2:15 PM CDT from Last 3 Months or Most Recently Relevant to Health Maintenance Results * PET skull to mid thigh-Outside NM Pet (06/10/2024 5:05 PM CDT) 06/10/2024 5:01 PM CDT Narrative IIMS - 06/10/2024 6:32 PM CDT This order has been created and auto-finalized to support the import of outside images. If available, original interpretation can be found on the Media Tab in Chart Review, in Document Viewer, as an image in QREADS or as an Addendum. If a re-interpretation or overread is required please follow defined workflow.?? us Provider Not In System IMG NM PROCEDURES Final R esult IIMS NA * XR MAMMO JILLIAN UNI ADDL VIEWS LEFT-Outside Mammogram (01/28/2023 2:15 PM CDT) Narrative IIMS - 07/01/2023 11:30 AM STILL OPERATOR This order has been created and auto-finalized to support the import of outside images. If available, original interpretation can be found on the Media Tab in Chart Review, in Document Viewer, or as an image in QREADS. If a re-interpretation or overread is required please follow defined workflow. ?? us Provider Not In System IMG BI PROCEDURES Final R esult Performing Organization Address City/[facility]/ZIP Co de Phone Number IIMS NA from Last 3 Months or Most Recently Relevant to Health Maintenance Insurance [facility] Member Subscriber Plan / Payer (Ef fective 2022-Present) Name:YANG URBAN Relation to Subscriber:Spouse Name:RANJITH URBAN Address: [address] [place] [address] Payer ID:Not on file Type:PPO Address: [facility] [id number] [place] [id number]
--- OUTSIDE RECORDS SUMMARY | 2024-06-24 11:03 | XMS_ITS ---
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 Kelsie grade: III of III; [place] score: 8 of 9. Stage IA anatomic, Stage I B Prognostic, T1b No Monofilament, triple negative grade 3-. Seeing Dr. Elias for Oncology. Current Oncology Plans No current plan information found. Past Plans No past plan information found. Radiation Treatments * Plan Last Treated On Elapsed Days Fractions Treated Prescribed Fraction Dose Prescribed Total Dose [id number] 07/25/2023 10 4 of 4 250 cGy 1,000 cGy [id number] 07/21/2023 6 5 of 5 520 cGy 2,600 cGy Reference Point Last Treated On Elapsed Days Session Dose Total Dose [id number] 07/25/2023 10 250 cGy 3,600 cGy
--- OUTSIDE RECORDS SUMMARY | 2024-06-24 11:03 | XMS_ITS | Clinical Summary ---
Author Organization [facility] Address [place], [place] [address] Care Team Providers Care Supervisor Opening And Picking Name Role Phone Juan Manuel Ho MD Primary Care Provider [phone] Allergies Active Allergy Reactions Criticality Noted Date Comments Zolpidem Headache 02/27/2011 Ciprofloxacin Arthralgia 01/09/2023 Pain head to toe. Difficulty walking. Nickel Hives 08/30/2008 Copper and cobalt also Penicillins Hives 01/03/2006 Sodium Lauryl Sulfate Other - Describe I n Comment Field 02/27/2011 Mouth sores Streptococcus Other - Describe In Comment Field 08/30/2008 Was skin tested at [place] in 1979. (See letter scanned 08/2008) Sulfa (Sulfonamide Antibiotics) Nausea Only 01/03/2006 Yeast, Dried Other - Describe In Comment Field 08/30/2008 Was tested at [place] in 1979. (See letter scanned 08/2008) Ondansetron [...] December 2023: CAP Strep pneumonia admitted to [facility]. 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 Aniwa grade: III of III; Aniwa score: 8 of 9. 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 Encounters Date Type Department Care Team Description 06/10/2024 Orders Only [facility] Scanner 1 scan: (1-Ord) LULA, PET/CT EYES TO THIGHS, CANCER INITIAL STAGING, 06/10/2024 from Last 3 Months Immunizations Name Administration Dates Next Due COVID-19 vaccine ([employer] NTSquid Facil 30mcg/0.3mL) 12YO+ BIVALENT PF, MDV 02/24/2023 COVID-19 vaccine ([employer] 30mcg/0.3mL) P F, MDV 12/08/2020,11/17/2020 Influenza A [...] 0 10/16/2023 Social Connections Answer Date Recorded Do you often feel lonely or isolated from those around you? 0 10/01/2023 Financial Resource Strain Answer Date R ecorded Difficulty of Paying Living Expenses 3 10/01/2023 Difficulty of Paying Living Expenses Not on file 10/01/2023 Food Insecurity Answer Date Recorded Do you worry your food will run out before you are able to buy more? 1 10/01/2023 Transportation Needs Answer Date Record ed Does lack of transportation keep you from medica l appointments? 1 10/01/2023 Does lack of transportation keep you from work, meetings or getting things that you need? 1 10/01/2023 Housing Stability Answer Date Recorded [...] Body Mass Index 29.41 10/16/2023 8:00 AM SEO ANALYST Plan of Treatment Health Maintenance Due Date [...] Additional history exists Tetanus booster 02/05/2028 02/04/2018, 08/2007, 07/18/2008 Colonoscopy through age 75 11/18/202811/18, 11/19/2023, 11/19/2023, Additional history exists Tdap Completed 02/04/2018 Zoster (shingles) series for age 50+ Completed 06/24/2018, 03/04/2018 Hepatitis C screening for age 18-79 Completed 10/12/2021 Procedures Procedure Name Priority Date/Time Associated Diagnosis Comments SCAN-PET SCAN 06/10/2024 12:00 AM CDT XR MAMMO JILLIAN BILAT SCREEN Routine 01/30/2024 8:11 AM CDT Visit for screening mammogram COLONOSCOPY SCREENING Routine 11/19/2023 6:57 AM CDT Screen for colon cancer ANTI HCV Routine 10/12/2021 7:27 AM SEO ANALYST Need for hepatitis C screening test LIPID PANEL W REFLEX MEASURED LDL Routine 10/12/2021 7:27 AM SEO ANALYST Screening cholesterol level SEAM SEWER THIN PREP PAP SCREEN IMAGED Routine 10/01/2021 8:11 AM SEO ANALYST Cervical cancer screening from Last 3 Months or Most Recently Relevant to Health Maintenance Results * SCAN-PET SCAN (06/10/2024 12:00 AM CDT) Anatomical Region Laterality Modality Other Scanner OTHER * XR MAMMO JILLIAN BILAT SCREEN (01/30/2024 [...] care provider. XR MAMMO JILLIAN BILAT SCREEN [[id number]] CLINICAL HISTORY: ??This is an asymptomatic 63 y.o. patient. INDICATION FOR EXAM: Mammogram Screening. TECHNIQUE: CC & MLO views were obtained. ??This study was evaluated with the assistance of Computer-Aided Detection. Breast Tomosynthesis was used in interpretation. COMPARISON FILMS: Yes 01/23/23 [facility] 10/01/21 [facility] FINDINGS: ??The breasts are heterogeneously dense, [...] Robles RN (Nurse) Referring MD: Juan Manuel Ho [...] candidate for conscious sedation. The endoscope [id number] was passed through the anus andadvanced to [...] there are any questions, please contact the workers compensation examiner. Moderate Sedation: A time out was performed [...] 7:37 AM Procedure Code(s): --- Professional --- 15292, Colonoscopy, flexible; with biopsy, single or multiple Diagnosis Code(s): --- Professional --- Z12.11, Encounter for screening formalignant neoplasm of colon D12.2, Benign neoplasm of ascending colon K57.30, Diverticulosis of large intestine without perforation or abscess withoutbleeding CPT copyright 2021 [employer]. All rights reserved. The codes documented in this report are preliminary and upon coil machine operator reviewmay be revised to meet current compliance requirements. Scope In: 8:12:12 AM Scope Withdrawal Time 0 hours 11 minutes 12 seconds Scope Out: 8:27:16 AM Ruperto Cain MD PROCEDURE ORD * (ABNORMAL) LIPID PANEL W REFLEX MEASURED LDL (10/12/2021 7:27 AM SEO ANALYST) CHOLESTEROL,TOTAL 203(H) 100 - 199 mg/dL 10/12/2021 5:24 PM SEO ANALYST [facility] TRIGLYCERIDES 139 <150 mg/dL 10/12/2021 5:24 PM SEO ANALYST [facility] HDL CHOLESTEROL 55 >40 mg/dL 5:24 PM SEO ANALYST [facility] NON-HDL CHOLESTEROL 148(H) <145 mg/dl 10/12/2021 5:24 PM SEO ANALYST [facility] CHOL/HDL RATIO 3.69 <4.50 10/12/2021 5:24 PM SEO ANALYST [facility] LDL CHOLESTEROL 120 <=130 mg/dL 10/12/2021 5:24 PM SEO ANALYST [facility] VLDL CHOLESTEROL 28 <=30 mg/dL 10/12/2021 5:24 PM SEO ANALYST [facility] TRA [facility] PROVIDER ORDERED STATUS FASTING 10/12/2021 5:24 PM SEO ANALYST [facility] Blood BLOOD SPECIMEN / Unknown Venipuncture / Unknown 10/12/2021 7:27 AM SEO ANALYST 10/12/2021 7:27 AM SEO ANALYST Juan Manuel Ho MD CHEMISTRY [facility] [address] [place] [address], [place] * ANTI HCV (10/12/2021 7:27 AM SEO ANALYST) Pathologist [facility] HEPATITIS C ANTIBODY Non-React mariola Non-React mariola 10/12/2021 5:44 PM SEO ANALYST [facility] Comment:Antibodies to HCV no t detected; does not exclude the possibility of exposure to HCV. Blood BLOOD SPECIMEN / Unknown Venipuncture / Unknown 10/12/2021 7:27 AM SEO ANALYST 10/12/2021 7:27 AM SEO ANALYST Juan Manuel Ho MD SEND OUTS [facility] [address] [place] [address], [place] * SEAM SEWER THIN PREP PAP SCREEN IMAGED (10/01/2021 8:11 AM SEO ANALYST) Case Report Gynecologic Cytology Report ? Case: [id number] ? Authorizing Provider: ??Juan Manuel Ho MD ?? Collected: ? 10/01/2021 0811 ? Ordering Location: ? [facility] ?? Received: ?10/01/2021810 ? Clinic ? First Screen: ?Mary Jo Hanson ? Specimen: ?SEAM SEWER ThinPrep Vial Screening, Cervical ? 10/09/2021 3:01 PM SEO ANALYST [facility] INTERPRETATION/ RESULT NEGATIVE FOR INTRAEPITHELIAL LESION OR MALIGNANCY (NIL) (none) 10/09/2021 3:01 PM SEO ANALYST [facility] IMEN ADEQUACY Satisfactory for evaluation No endocervical component seen 10/09/2021 3:01 PM SEO ANALYST [facility] HPV REQUEST HPV if ASCUS 10/09/2021 3:01 PM SEO ANALYST [facility] Date of LMP NA 10/09/2021 3:01 PM SEO ANALYST [facility] Last Pap Date 2014 10/09/2021 3:01 PM SEO ANALYST [facility] Last Pap Result NIL 3:01 PM SEO ANALYST [facility] Abnormal Pap or [place] Bx in last 5 years No 10/09/2021 3:01 PM SEO ANALYST [facility] Menstrual Status Postmenopausal 10/09/2021 3:01 PM SEO ANALYST [facility] [place] Bx Done Today No 10/09/2021 3:01 PM SEO ANALYST [facility] Additional Information None given 10/09/2021 3:01 PM SEO ANALYST [facility] Comment: Cytology is screened at [facility] - [address], [place] [address] and [facility] - [address] [place] [place] [address] and Laboratory - [address] [place] [address] Interpreted at [facility] - [address], [place] [address] Automated Review Successful 10/09/2021 3:01 PM SEO ANALYST [facility] Comment:Specimen processed s uccessfully by automated computer graphic artist device, ThinPrep Imaging System, [employer] Note The pap test is a screening technique, not a diagnostic procedure. It is used primarily to screen for squamous cancers and precursor lesions. Published studies have shown that it is subject to both false negative and false positive results. The pap test should not be used as the sole means to diagnose or exclude pre-malignant and malignant lesions. 10/09/2021 3:01 PM SEO ANALYST [facility] Other (Cervical) Non-Blood / Unknown 10/01/2021 8:11 AM SEO ANALYST 10/01/2021 8:11 AM SEO ANALYST Juan Manuel Ho MD PATHOLOGY/CYTOLOG Y [facility] [address] [place] [address], from Last 3 Months or Most Recently Relevant to Health Maintenance Care Teams Supervisor Opening And Picking Relationship Specialty Start Date End Date Juan Manuel Ho MD [address] [place] [address] PCP - General Family Practice 02/06/23
--- OUTSIDE RECORDS SUMMARY | 2024-06-24 11:03 | XMS_ITS | Clinical Summary ---
Author Organization [facility] Address [address] [place] [address] Care Team Providers Care Workforce Management Analyst Name Role Phone Unavailable Primary Care Provider Unavailabl e Source Comments Patient records contain information from all sites at [facility]. For routine questions regarding patient records, call [phone] during business hours, M-F 8:00 AM - 5:00 PM Central Time. Record requests for emergency care only can be directed to [phone] at any time.[facility] Medications erythromycin (ROMYCIN) 5 mg/gram (0.5 %) [...] from 02/04/2023:Stage IB(cT1b, cN0, cM0, G2, ER-, MO-, HER2-) - Unsigned Pathologic stage from 06/12/2023: ypT0, pN0(sn), cM0, ER-, MO-, HER2- - Unsigned Overview (07/03/2023): January 2023: [...] your living situation today? I have a [facility] place to live 07/15/2023 Comments Unknown Sex and Gender Information Value Date Recorded Sex Assigned at Female 07/15/2023 7:[address] JUDGE Legal Sex Female 7:[address] JUDGE Gender Identity Female 07/15/2023 7:[address] JUDGE Sexual Orientation Straight 07/15/2023 7: [address] JUDGE Last Filed Vital Signs Vital Sign Reading Time Taken Comments Blood Pressure 125/49 07/08/2023 12:[address] JUDGE Pulse 75 07/08/2023 12:[address] JUDGE Temperature 36.2 ??C (97.1 ??F) 07/23/2023 1:12 PM CS T Respiratory Rate - - Oxygen Saturation - - Inhaled Oxygen Concentration - - Weight 86.3 kg (190 lb 4.1 oz) 07/23/2023 1:[address] JUDGE Height - - Body Mass Index - - Plan of Treatment Health Maintenance Due Date Last Done Comments Bone Density Scan (Osteoporosis Screen) 1959 CT Colonography 1960 Cervical/Vaginal Cancer Screening 1960 Cologuard 1960 FIT 1960 [...] on patient's age to complete this topic IPV Vaccines Aged Out No longer eligi ble [...] CDT) Narrative IIMS - 07/01/2023 11:[address] JUDGE This order has been created and auto-finalized [...] Most Recently Relevant to Health Maintenance Insurance [facility] Member Subscriber Plan / Payer (Ef fective 2022-Present) Name:YANG URBAN Relation to Subscriber:Spouse Name:RANJITH URBAN Address: [address] [place] [address] Payer ID:Not on file Type:PPO Address: [address] [place] [id number]
--- OUTSIDE RECORDS SUMMARY | 2024-06-24 11:03 | XMS_ITS ---
Author Organization [facility] Address [address] [place] [address] Care Team Providers Care Foot And Ankle Surgeon Name Role Phone Unavailable Unavailable Unavailable Surgery Details Not on file Complications Check Surgery Details section. Procedure Estimated Blood Loss Check Surgery Details section. Procedure Findings Check Surgery Details section. Procedure Specimens Taken Check Surgery Details section.
--- OUTSIDE RECORDS SUMMARY | 2024-06-24 11:04 | XMS_ITS | Referral Summary ---
Author Organization [facility] Address [address] [place] [address] Care Team Providers Care Personnel Recruiter Name Role Phone No Ref-Primary, Physician Primary Care Provider Allergies Active Allergy Reactions Criticality Noted Date Comments Nickel Hives 08/30/2008 Copper and cobalt also No Clinical Screening - See Comments Other (See Comments) 08/30/2008 Was tested at [place] in 1979. (See letter scanned 08/2008) Penicillin G 10/28/2016 Sodium Lauryl Sulfate Other (See Comments) 02/15 Mouth sores Streptococci 10/28/2016 Streptococcus Antigen Other (See Comments) 08/18 Was tested at [place] in 1979. (See letter scanned 08/2008) Sulfa Antibiotics Nausea 01/03/2006 Yeast Other (See Comments) 08/30/2008 Was tested at [place] in 1979. (See letter scanned 08/2008) Zolpidem Unknown 02/27/2011 Medications glucosamine-cho ndroitin 500-400 MG CAPS per capsule Take 1 capsule by mouth 02/27/2011 Active Active Problems No known active problems Immunizations Name Administration Dates Next Due [id number] Novel Flu 08/26/2009 Influenza (H1N1) 08/24/2009 Influenza [...] Plan of Treatment Not on file Insurance [facility] STATE Care Teams Personnel Recruiter Relationship Specialty Start Date End Date No Ref-Primary, Physician PCP - General 11/10/18
--- NOTE | 2024-06-24 11:30 | CRLHL7_ITS ---
For Patients: As a result of the Century Cures Act, medical imaging exams and procedure reports are released immediately into your electronic medical record. You may view this report before your referring provider. If you have questions, please contact your health care provider. INDICATION: Non-toxic single thyroid nodule seen on PET COMPARISON: CT PET 06/10/2024 TECHNIQUE: Toussaint scale and color Doppler images were acquired of the thyroid gland. FINDINGS: Isthmus measures 2.6 millimeters. Mostly cystic nodule right thyroid lobe posteriorly measures 10 x 8 x 10 millimeters, TR 2. Solid heterogeneous nodule left thyroid lobe measures 2.5 x 1.3 x 1.5 cm, TR 4. The right lobe measures 5.8 x 2.4 x 2.5 cm and the left lobe measures 5.9 x 2.3 x 2.4 cm in size. Thyroid echotexture is heterogeneous. The color Doppler images demonstrate mildly increased vascularity. There is no evidence of cervical lymphadenopathy or parathyroid mass. IMPRESSION: 2.5 cm TR 4 nodule left thyroid lobe. FNA recommended. Dictated by Arnulfo Briceno MD @ 06/25/2024 10:08:24 AM (Electronically Signed)
== END 2024-06-24 11:01 | disposition home or self-care (01) ==
LOC: US 11:01
PROVIDERS: PCP Family Medicine; Visit Provider Physician Assistant
DX: E04.1 Nontoxic single thyroid nodule (principal); K57.92 Diverticulitis of intestine, part unspecified, without perforation or abscess without bleeding; C50.919 Malignant neoplasm of unspecified site of unspecified female breast
CPT/HCPCS: 76536

== ENCOUNTER 2024-07-09 08:52 | Outpatient (CLI) | payer MEDICARE, BC, SELFPAY ==
--- OUTSIDE RECORDS SUMMARY | 2024-07-09 08:55 | XMS_ITS ---
Author Organization [facility] Address [address] [place] [address] Care Team Providers Care Rib Knitter Name Role Phone Unavailable Unavailable Unavailable Surgery Details Not on file Complications Check Surgery Details section. Procedure Estimated Blood Loss Check Surgery Details section. Procedure Findings Check Surgery Details section. Procedure Specimens Taken Check Surgery Details section.
--- OUTSIDE RECORDS SUMMARY | 2024-07-09 08:55 | XMS_ITS | Clinical Summary ---
Author Organization [facility] Address [address] [place] [address] Care Team Providers Care Blow Molder Name Role Phone No Ref-Primary, Physician Primary Care Provider Allergies Active Allergy Reactions Criticality Noted Date Comments Nickel Hives 08/30/2008 Copper and cobalt also No Clinical Screening - See Comments Other (See Comments) 08/30/2008 Was tested at [place] in 1979. (See letter scanned 08/2008) Penicillin G 10/28/2016 Sodium Lauryl Sulfate Other (See Comments) 02/15 Mouth sores Streptococci 10/28/2016 Streptococcus Antigen Other (See Comments) 08/18 Was tested at [place] in 1979. (See letter scanned 08/2008) Sulfa Antibiotics Nausea 01/03/2006 Yeast Other (See Comments) 08/30/2008 Was tested at [place] in 1979. (See letter scanned 08/2008) Zolpidem Unknown 02/27/2011 Medications glucosamine-cho ndroitin 500-400 MG CAPS per capsule Take 1 capsule by mouth 02/27/2011 Active Active Problems No known active problems Immunizations Name Administration Dates Next Due Y2x4-97 Novel Flu 08/26/2009 Influenza (H1N1) 08/24/2009 Influenza [...] 86 11/10/2018 2:04 PM CDT Temperature 36.9 C (98.4 F) 11/10/2018 2:04 PM CDT Respiratory Rate 14 11/10/2018 2:04 PM CDT Oxygen Saturation 95% 11/10/2018 2:04 PM CDT Inhaled Oxygen Concentration - - Weight 80.2 kg (176 lb 12.8 oz) 11/10/2018 2:04 PM CDT Height 168.3 cm (5' 6.25) 11/10/2018 2:04 PM CD T Body Mass Index 28.32 11/10/2018 2:04 PM CDT Plan of Treatment Not on file Insurance [facility] OUT [facility] STATE Care Teams Blow Molder Relationship Specialty Start Date End Date No Ref-Primary, Physician PCP - General 11/10/18
--- OUTSIDE RECORDS SUMMARY | 2024-07-09 08:55 | XMS_ITS | Clinical Summary ---
Author Organization [employer] [facility] Address [place], [place] [address] Care Team Providers Care Dough Panner Name Role Phone Juan Manuel Ho MD Primary Care Provider [phone] Allergies Active Allergy Reactions Criticality Noted Date Comments Zolpidem Headache 02/27/2011 Ciprofloxacin Arthralgia 01/09/2023 Pain head to toe. Difficulty walking. Nickel Hives 08/30/2008 Copper and cobalt also Penicillins Hives 01/03/2006 Sodium Lauryl Sulfate Other - Describe I n Comment Field 02/27/2011 Mouth sores Streptococcus Other - Describe In Comment Field 08/30/2008 Was skin tested at [place] in 1979. (See letter scanned 08/2008) Sulfa (Sulfonamide Antibiotics) Nausea Only 01/03/2006 Yeast, Dried Other - Describe In Comment Field 08/30/2008 Was tested at [place] in 1979. (See letter scanned 08/2008) Ondansetron [...] December 2023: CAP Strep pneumonia admitted to [facility]. 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 Kelsie grade: III of III; [place] score: 8 of 9. Stage IA anatomic, [...] Encounters Date Type Department Care Team Description 06/24/2024 Orders Only [facility] Scanner 1 scan: (1-Ord) [facility], THYROID, 06/24/2024 06/10/2024 Orders Only [facility] Scanner 1 scan: (1-Ord) [place], PET/CT EYES TO THIGHS, CANCER INITIAL STAGING, 06/10/2024 from Last 3 Months Immunizations Name Administration Dates Next Due COVID-19 vaccine ([employer] 30mcg/0.3mL) 12YO+ BIVALENT PF, MDV 02/24/2023 COVID-19 vaccine ([employer] 30mcg/0.3mL) P F, MDV 12/08/2020,11/17/2020 Influenza A (H1N1), Inactivated (Age >=3 Years) 08/26/2009 Influenza RIV4 (Age 18+ Years) PRESERV FREE 04/18,05/14/2020 Influenza, IIV3 (Age >=3 years) 07/04/2010,04/18 Influenza, IIV4 04/12/2022 Influenza, IIV4 (=>6mos) MDV 04/28/2023,05/20/20 Pneumococcal conj 13-Valent (Prevnar 13) 018 RSV, [...] 67 12/22/2023 11:38 AM CDT Temperature 36.9 C (98.4 F) 08/20/2010 8:26 AM GARDEN CONSULTANT Respiratory Rate 18 11/19/2023 8:40 AM CDT Oxygen Saturation 97% 12/22/2023 11:38 AM CDT Inhaled Oxygen Concentration - - Weight 84.2 kg (185 lb 9.6 oz) 12/22/2023 11:38 AM CDT Height 169.2 cm (5' 6.61) 10/16/2023 8:00 AM CS T Body Mass Index 29.41 10/16/2023 8:00 AM GARDEN CONSULTANT Plan of Treatment Health Maintenance Due Date Last Done Comments COVID-19 vaccine series ( season) 2024 06/02/2023, 02/24/2023, 06/11/2022, Additional history exists DEXA/DXA scan for age 65+ 2024 Influenza for age 65+ 2024 04/28/2023 , 04/12/2022, 05/05/2021, Additional history exists Pneumococcal series for age 65+ (2 of 2 - PPSV23 or PCV20) 2024 02/04/2018 Pap test for age 21-65 10/01/2024 2, 10/01/2021, 11/26/2013, Additional history exists BMI (ht [...] Procedure Name Priority Date/Time Associated Diagnosis Comments SCAN-ULTRASOUND REPORT 06/24/2024 12:00 AM GARDEN CONSULTANT SCAN-PET SCAN 06/10/2024 12:00 AM CDT XR MAMMO JILLIAN BILAT SCREEN Routine 01/30/2024 8:11 AM CDT Visit for screening mammogram COLONOSCOPY SCREENING Routine 11/19/2023 6:57 AM CDT Screen for colon cancer ANTI HCV Routine 10/12/2021 7:27 AM GARDEN CONSULTANT Need for hepatitis C screening test LIPID PANEL W REFLEX MEASURED LDL Routine 10/12/2021 7:27 AM GARDEN CONSULTANT Screening cholesterol level WASHROOM ATTENDANT THIN PREP PAP SCREEN IMAGED Routine 10/01/2021 8:11 AM GARDEN CONSULTANT Cervical cancer screening from Last 3 Months or Most Recently Relevant to Health Maintenance Results * SCAN-ULTRASOUND REPORT (06/24/2024 12:00 AM GARDEN CONSULTANT) Anatomical Region Laterality Modality Other Scanner OTHER * SCAN-PET SCAN (06/10/2024 12:00 AM CDT) Anatomical Region Laterality Modality Other Scanner OTHER * XR MAMMO JILLIAN BILAT SCREEN (01/30/2024 8:11 AM CDT) Anatomical Region Laterality Modality BREASTS, Breast Left, Breast Right Bilateral Mammography Impressions 01/30/2024 11:49 AM CDT There is no radiographic evidence for malignancy. Recommend annual mammograms. MAMMOGRAM ASSESSMENT: ACR 2 Benign PATIENTS: You will also receive a letter with your examination results in an easy to read format. If you have questions about your results, please [...] care provider. XR MAMMO JILLIAN BILAT SCREEN [[id number]] CLINICAL HISTORY: This is an asymptomatic 63 y.o. patient. INDICATION FOR EXAM: Mammogram Screening. TECHNIQUE: CC & MLO views were obtained. This study was evaluated with the assistance of Computer-Aided Detection. Breast Tomosynthesis was used in interpretation. COMPARISON FILMS: Yes 01/23/23 [facility] 10/01/21 [facility] FINDINGS: The breasts are heterogeneously dense, which may obscure small masses. No suspicious masses or microcalcifications. There are post treatment changes of left breast. [...] Robles RN (Nurse) Referring MD: Juan Manuel oH Indications/Pre-Op Diagnosis: Screening for colorectal malignant neoplasm, Last colonoscopy: date unknown (unable to locate last colonoscopy report) Medications: Fentanyl 100 micrograms IV, Midazolam 2 mgIV, The level of sedation administered wasmoderate Procedure Description: The patient had risks, benefits and alternatives explained to andgave informed consent. The patient had a stable cardiopulmonary status and judged an adequate candidate for conscious sedation. The endoscope [id number]-[id number] was passed through the anus andadvanced to [...] there are any questions, please contact the computed tomography technician. Moderate Sedation: A time out was performed [...] 7:37 AM Procedure Code(s): --- Professional --- 07701, Colonoscopy, flexible; with biopsy, single or multiple Diagnosis Code(s): --- Professional --- Z12.11, Encounter for screening formalignant neoplasm of colon D12.2, Benign neoplasm of ascending colon K57.30, Diverticulosis of large intestine without perforation or abscess withoutbleeding CPT copyright 2021 [employer]. All rights reserved. The codes documented in this report are preliminary and upon relations coordinator reviewmay be revised to meet current compliance requirements. Scope In: 8:12:12 AM Scope Withdrawal Time 0 hours 11 minutes 12 seconds Scope Out: 8:27:16 AM Ruperto Cain MD PROCEDURE ORD * (ABNORMAL) LIPID PANEL W REFLEX MEASURED LDL (10/12/2021 7:27 AM GARDEN CONSULTANT) CHOLESTEROL,TOTAL 203(H) 100 - 199 mg/dL 10/12/2021 5:24 PM GARDEN CONSULTANT [facility] TRIGLYCERIDES 139 <150 mg/dL 10/12/2021 5:24 PM GARDEN CONSULTANT [facility] HDL CHOLESTEROL 55 >40 mg/dL 5:24 PM GARDEN CONSULTANT [facility] NON-HDL CHOLESTEROL 148(H) <145 mg/dl 10/12/2021 5:24 PM GARDEN CONSULTANT [facility] CHOL/HDL RATIO 3.69 <4.50 10/12/2021 5:24 PM GARDEN CONSULTANT [facility] LDL CHOLESTEROL 120 <=130 mg/dL 10/12/2021 5:24 PM GARDEN CONSULTANT [facility] VLDL CHOLESTEROL 28 <=30 mg/dL 10/12/2021 5:24 PM GARDEN CONSULTANT [facility] PROVIDER ORDERED STATUS FASTING 10/12/2021 5:24 PM GARDEN CONSULTANT [facility] Blood BLOOD SPECIMEN / Unknown Venipuncture / Unknown 10/12/2021 7:27 AM GARDEN CONSULTANT 10/12/2021 7:27 AM GARDEN CONSULTANT Juan Manuel Ho MD CHEMISTRY [facility] [address] [place] [address], * ANTI HCV (10/12/2021 7:27 AM GARDEN CONSULTANT) HEPATITIS C ANTIBODY Non-React mariola Non-React mariola 10/12/2021 5:44 PM GARDEN CONSULTANT [facility] Comment:Antibodies to HCV no t detected; does not exclude the possibility of exposure to HCV. Blood BLOOD SPECIMEN / Unknown Venipuncture / Unknown 10/12/2021 7:27 AM GARDEN CONSULTANT 10/12/2021 7:27 AM GARDEN CONSULTANT Juan Manuel Ho MD [facility] [address] [place] [address], [place] * WASHROOM ATTENDANT THIN PREP PAP SCREEN IMAGED (10/01/2021 8:11 AM GARDEN CONSULTANT) Case Report Gynecologic Cytology Report Case: [id number] Authorizing Provider: Juan Manuel Ho MD Collected: 10/01/2021 0811 Ordering Location: [facility] Received: 10/01/2021 0811 Clinic First Screen: Mary Jo Hanson Specimen: WASHROOM ATTENDANT ThinPrep Vial Screening, Cervical 10/09/2021 3:01 PM GARDEN CONSULTANT [facility] INTERPRETATION/ RESULT NEGATIVE FOR INTRAEPITHELIAL LESION OR MALIGNANCY (NIL) (none) 10/09/2021 3:01 PM GARDEN CONSULTANT [facility] ENTRAL LABORATORY IMEN ADEQUACY Satisfactory for evaluation No endocervical component seen 10/09/2021 3:01 PM GARDEN CONSULTANT [facility] HPV REQUEST HPV if ASCUS 10/09/2021 3:01 PM GARDEN CONSULTANT [facility] Date of LMP NA 10/09/2021 3:01 PM GARDEN CONSULTANT [facility] Last Pap Date 201310/09/2021 3:01 PM GARDEN CONSULTANT [facility] EN[facility]AL [facility] Last Pap Result NIL 3:01 PM GARDEN CONSULTANT [facility]- ENTRAL LABORATORY Abnormal Pap or [place] Bx in last 5 years No 10/09/2021 3:01 PM GARDEN CONSULTANT [facility] Menstrual Status Postmenopausal 10/09/2021 3:01 PM GARDEN CONSULTANT [facility] [place] Bx Done Today No 10/09/2021 3:01 PM GARDEN CONSULTANT [facility] ENTRAL [facility] Additional Information None given 10/09/2021 3:01 PM GARDEN CONSULTANT [facility] Comment: Cytology is screened at [facility], Central Laboratory - [address], [place] [address] and [facility] [place] - [address], [place] [address] and [facility] - [address] [place] [address] Interpreted at [facility], Central Laboratory - [address], [place] [address] Automated Review Successful 10/09/2021 3:01 PM GARDEN CONSULTANT [facility]-C ENTRAL LABORATORY Comment:Specimen processed s uccessfully by automated business development recruiter device, ThinPrep Imaging System, [employer] Note The pap test is a screening technique, not a diagnostic procedure. It is used primarily to screen for squamous cancers and precursor lesions. Published studies have shown that it is subject to both false negative and false positive results. The pap test should not be used as the sole means to diagnose or exclude pre-malignant and malignant lesions. 10/09/2021 3:01 PM GARDEN CONSULTANT [facility] ENTRAL LABORATORY Other (Cervical) Non-Blood / Unknown 10/01/2021 8:11 AM GARDEN CONSULTANT 10/01/2021 8:11 AM GARDEN CONSULTANT Juan Manuel Ho MD PATHOLOGY/CYTOLOG Y [facility] [address] [place] [address], [place] from Last 3 Months or Most Recently Relevant to Health Maintenance Care Teams Dough Panner Relationship Specialty Start Date End Date Juan Manuel [place] [address] PCP - General Family Practice 02/06/23
--- OUTSIDE RECORDS SUMMARY | 2024-07-09 08:55 | XMS_ITS | Referral Summary ---
Author Organization [facility] Address [address] [place] [address] Care Team Providers Care Assigner Name Role Phone Unavailable Primary Care Provider Unavailabl e Source Comments Patient records contain information from all sites at [facility]. For routine questions regarding patient records, call [phone] during business hours, M-F 8:00 AM - 5:00 PM Central Time. Record requests for emergency care only can be directed to [phone] at any time.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 Kelsie grade: III of III; [place] score: 8 of 9. Stage IA anatomic, [...] your living situation today? I have a [facility] place to live 07/15/2023 Comments Unknown Sex and Gender Information Value Date Recorded Sex Assigned at Female 07/15/2023 7:17 PM PHARMACY SALESPERSON Legal Sex Female 7:18 AM PHARMACY SALESPERSON Gender Identity Female 07/15/2023 7:17 PM PHARMACY SALESPERSON Sexual Orientation Straight 07/15/2023 7: 17 PM PHARMACY SALESPERSON Last Filed Vital Signs Vital Sign Reading Time Taken Comments Blood Pressure 125/49 07/08/2023 12:50 PM PHARMACY SALESPERSON Pulse 75 07/08/2023 12:50 PM PHARMACY SALESPERSON Temperature 36.2 C (97.1 F) 07/23/2023 1:12 PM PHARMACY SALESPERSON Respiratory Rate - - Oxygen Saturation - - Inhaled Oxygen Concentration - - Weight 86.3 kg (190 lb 4.1 oz) 07/23/2023 1:12 P M PHARMACY SALESPERSON Height - - Body Mass Index - [...] overread is required please follow defined workflow. us Provider Not In System IMG NM PROCEDURES Final R esult IIMS NA * XR MAMMO JILLIAN UNI ADDL VIEWS LEFT-Outside Mammogram (01/28/2023 2:15 PM CDT) Narrative IIMS - 07/01/2023 11:30 AM PHARMACY SALESPERSON This order has been created and auto-finalized to support the import of outside images. If available, original interpretation can be found on the Media Tab in Chart Review, in Document Viewer, or as an image in QREADS. If a re-interpretation or overread is required please follow defined workflow. us Provider Not In System IMG BI PROCEDURES Final R esult Performing Organization Address City/[facility]/ZIP Co de Phone Number IIMS NA from Last 3 Months or Most Recently Relevant to Health Maintenance Insurance [facility] Member Subscriber Plan / Payer (Ef fective 2022-Present) Name:YANG URBAN Relation to Subscriber:Spouse Name:RANJITH URBAN Address: [address] [place] [address] Payer ID:Not on file Type:PPO Address: [facility] [id number] [place] [id number]
--- OUTSIDE RECORDS SUMMARY | 2024-07-09 08:55 | XMS_ITS | Referral Summary ---
Author Organization [facility] Address [address] [place] [address] Care Team Providers Care Net Programmer Analyst Name Role Phone No Ref-Primary, Physician Primary Care Provider Allergies Active Allergy Reactions Criticality Noted Date Comments Nickel Hives 08/30/2008 Copper and cobalt also No Clinical Screening - See Comments Other (See Comments) 08/30/2008 Was tested at [place] in 1979. (See letter scanned 08/2008) Penicillin G 10/28/2016 Sodium Lauryl Sulfate Other (See Comments) 02/15 Mouth sores Streptococci 10/28/2016 Streptococcus Antigen Other (See Comments) 08/18 Was tested at [place] in 1979. (See letter scanned 08/2008) Sulfa Antibiotics Nausea 01/03/2006 Yeast Other (See Comments) 08/30/2008 Was tested at [place] in 1979. (See letter scanned 08/2008) Zolpidem Unknown 02/27/2011 Medications glucosamine-cho ndroitin 500-400 MG CAPS per capsule Take 1 capsule by mouth 02/27/2011 Active Active Problems No known active problems Immunizations Name Administration Dates Next Due [id number] Novel Flu 08/26/2009 Influenza (H1N1) 08/24/2009 Influenza [...] Plan of Treatment Not on file Insurance Care Teams Net Programmer Analyst Relationship Specialty Start Date End Date No Ref-Primary, Physician PCP - General 11/10/18
--- OUTSIDE RECORDS SUMMARY | 2024-07-09 08:55 | XMS_ITS ---
Author Organization [facility] Address [address] [place] [address] Care Team Providers Care Internal Combustion Engine Subassembler Name Role Phone Unavailable Primary Care Provider [...] comment a. Kelsie grade: III of III; [place] score: 8 of 9. Stage IA anatomic, Stage I B Prognostic, T1b No Monofilament, triple negative grade 3-. Seeing Dr. Elias for Oncology. Current Oncology Plans No current plan information found. Past Plans No past plan information found. Radiation Treatments * Plan Last Treated On Elapsed Days Fractions Treated Prescribed Fraction Dose Prescribed Total Dose [id number] 07/25/2023 10 4 of 4 250 cGy 1,000 cGy [id number] 07/21/2023 6 5 of 5 520 cGy 2,600 cGy Reference Point Last Treated On Elapsed Days Session Dose Total Dose [id number] 07/25/2023 10 250 cGy 3,600 cGy
--- OUTSIDE RECORDS SUMMARY | 2024-07-09 08:55 | XMS_ITS | Clinical Summary ---
Author Organization [facility] Address [address] [place] [address] Care Team Providers Care Associate Project Manager Name Role Phone Unavailable Primary Care Provider Unavailabl e Source Comments Patient records contain information from all sites at [facility]. For routine questions regarding patient records, call [phone] during business hours, M-F 8:00 AM - 5:00 PM Central Time. 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 Kelsie grade: III of III; [place] score: 8 of 9. Stage IA anatomic, [...] living situation today? I have a [facility] place to live 07/15/2023 Comments Unknown Sex and Gender Information Value Date Recorded Sex Assigned at Female 07/15/2023 7:17 PM SUBSTATION TECHNICIAN Legal Sex Female 7:18 AM SUBSTATION TECHNICIAN Gender Identity Female 07/15/2023 7:17 PM SUBSTATION TECHNICIAN Sexual Orientation Straight 07/15/2023 7: 17 PM SUBSTATION TECHNICIAN Last Filed Vital Signs Vital Sign Reading Time Taken Comments Blood Pressure 125/49 07/08/2023 12:50 PM SUBSTATION TECHNICIAN Pulse 75 07/08/2023 12:50 PM SUBSTATION TECHNICIAN Temperature 36.2 C (97.1 F) 07/23/2023 1:12 PM SUBSTATION TECHNICIAN Respiratory Rate - - Oxygen Saturation - - Inhaled Oxygen Concentration - - Weight 86.3 kg (190 lb 4.1 oz) 07/23/2023 1:12 P M SUBSTATION TECHNICIAN Height - - Body Mass Index - [...] CDT) Narrative IIMS - 07/01/2023 11:30 AM SUBSTATION TECHNICIAN This order has been created and auto-finalized [...] Most Recently Relevant to Health Maintenance Insurance [facility] Member Subscriber Plan / Payer (Ef fective 2022-Present) Name:YANG URBAN Relation to Subscriber:Spouse Name:RANJITH URBAN Address: [address] [place] [address] Payer ID:Not on file Type:PPO Address: [address] [place] [id number]
--- NOTE | 2024-07-09 09:15 | CRLHL7_ITS ---
For Patients: As a result of the Century Cures Act, medical imaging exams and procedure reports are released immediately into your electronic medical record. You may view this report before your referring provider. If you have questions, please contact your health care provider. INDICATION : Left thyroid nodule. TECHNIQUE : Ultrasound-guided fine needle aspiration of thyroid nodule. Comparison : Ultrasound 06/24/2024, CT-PET 06/10/2024 FINDINGS : PROCEDURE: After the informed consent and time-out, multiple fine needle aspirations were obtained from the thyroid nodule. Fine needle performed. 25 gauge needles were used. Lidocaine was used for local anesthesia. The preliminary cytology was adequate for interpretation. Real-time imaging was used for guidance and needle placement. Post imaging ultrasound demonstrates no immediate complication. IMPRESSION : Successful fine needle aspiration of left thyroid nodule. Dictated by Arnulfo Briceno MD @ 07/09/2024 12:37:22 PM (Electronically Signed)
== END 2024-07-09 08:53 | disposition home or self-care (01) ==
LOC: US 08:53
PROVIDERS: PCP Family Medicine; Visit Provider Physician Assistant
DX: E04.1 Nontoxic single thyroid nodule (principal)
CPT/HCPCS: 10005; 88173

== ENCOUNTER 2024-10-11 10:40 | Emergency (ER) | payer MEDICARE, BC, SELFPAY ==
[2024-10-11] VITALS (8 sets, daily range): BP systolic 143; BP diastolic 82; PULSE 86–101; RESP 20; TEMP 36.9; O2SAT 88–94; BMI 30.7
--- OUTSIDE RECORDS SUMMARY | 2024-10-11 10:43 | XMS_ITS | Clinical Summary ---
Author Organization [employer] [facility] Address [address] [place] [address] Care Team Providers Care Binder Caser Name Role Phone Juan Manuel Ho MD Primary Care Provider [phone] Allergies Active Allergy Reactions Criticality Noted Date Comments Zolpidem Headache 02/27/2011 Ciprofloxacin Arthralgia 01/09/2023 Pain head to toe. Difficulty walking. Nickel Hives 08/30/2008 Copper and cobalt also Penicillins Hives 01/03/2006 Sodium Lauryl Sulfate Other - Describe I n Comment Field 02/27/2011 Mouth sores Streptococcus Other - Describe In Comment Field 08/30/2008 Was skin tested at [place] in 1979. (See letter scanned 08/2008) Sulfa (Sulfonamide Antibiotics) Nausea Only 01/03/2006 Yeast, Dried Other - Describe In Comment Field 08/30/2008 Was tested at [place] in 1979. (See letter scanned 08/2008) Ondansetron Headache Medium 05/16/2023 Severe headache Medications calcium carbonate-vitam in D3, 600 mg-400 unit, (CALCIUM WITH VITAMIN D) tablet Take 1 tablet by mouth 2 times daily with meals. 60 tablet 0 02/27/2011 Active glucosamine-cho ndroitin, 500-400 mg, (COSAMIN DS 500/400) 500-400 mg [...] December 2023: CAP Strep pneumonia admitted to [facility]. 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 Kelsie grade: III of III; [place] score: 8 of 9. Stage IA anatomic, [...] Encounters Date Type Department Care Team Description 10/11/2024 9:45 AM MACHINE PROGRAMMER Office Visit [facility] [id number] [address] Marion Lindsey PA Cough 10/11/2024 Travel from Last 3 Months Immunizations Name Administration Dates Next Due COVID-19 vaccine ([employer] 30mcg/0.3mL) 12YO+ BIVALENT PF, MDV 02/24/2023 COVID-19 vaccine ([employer] 30mcg/0.3mL) P F, MDV 12/08/2020,11/17/2020 Influenza A [...] is your housing situation today? 1 10/01/2023 Utilities Answer Date Recorded Do you have trouble paying f or utilities (for example, heat, electricity, water, phone)? 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 Not on file Not on file Not on file Obstetrics History Last Filed Vital Signs Vital Sign Reading Time Taken Comments Blood Pressure 154/77 10/11/2024 9:54 AM MACHINE PROGRAMMER Pulse 79 10/11/2024 9:54 AM MACHINE PROGRAMMER Temperature 36.3 C (97.4 F) 10/11/2024 9:54 AM MACHINE PROGRAMMER Respiratory Rate 20 10/11/2024 9:54 AM MACHINE PROGRAMMER Oxygen Saturation 92% 10/11/2024 9:54 AM MACHINE PROGRAMMER Inhaled Oxygen Concentration - - Weight 84.2 kg (185 lb 9.6 oz) 12/22/2023 11:38 AM CDT Height 169.2 cm (5' 6.61) 10/16/2023 8:00 AM CS T Body Mass Index 29.41 10/16/2023 8:00 AM MACHINE PROGRAMMER Plan of Treatment Health Maintenance Due Date Last Done Comments Pneumococcal series for age 50+ (2 of 2 - PPSV23) 02/04/2019 02/04/2018 DEXA/DXA scan for age 65+ 2024 Influenza for age 65+ 2024 04/28/2023 , 04/12/2022, 05/05/2021, Additional history exists Medicare Wellness for age 65+ 2024 Pap test for age 21-65 10/01/2024 , [...] C screening for age 18-79 Completed 10/12/2021 RSV vaccine for adults or Completed 04/28/2023 COVID-19 vaccine series Completed 05/24/20 24, 06/02/2023, 02/24/2023, Additional history exists Procedures Procedure Name Priority Date/Time Associated Diagnosis Comments XR MAMMO JILLIAN BILAT SCREEN Routine 01/30/2024 8:11 AM CDT Visit for screening mammogram COLONOSCOPY SCREENING Routine 11/19/2023 6:57 AM CDT Screen for colon cancer ANTI HCV Routine 10/12/2021 7:27 AM MACHINE PROGRAMMER Need for hepatitis C screening test LIPID PANEL W REFLEX MEASURED LDL Routine 10/12/2021 7:27 AM MACHINE PROGRAMMER Screening cholesterol level STONE FINISHER THIN PREP PAP SCREEN IMAGED Routine 10/01/2021 8:11 AM MACHINE PROGRAMMER Cervical cancer screening from Last 3 Months [...] For Patients: As a result of the Cures Act, medical imaging exams and procedure reports are released immediately into your electronic medical record. You may view this report before your referring provider. If you have questions, please contact your health care provider. XR MAMMO JILLIAN BILAT SCREEN [[id number]] CLINICAL HISTORY: This is an asymptomatic 63 y.o. patient. INDICATION FOR EXAM: Mammogram Screening. TECHNIQUE: CC & MLO views were obtained. This study was evaluated with the assistance of Computer-Aided Detection. Breast Tomosynthesis was used in interpretation. COMPARISON FILMS: Yes 01/23/23 [facility]01[facility]21 [facility] FINDINGS: The breasts are heterogeneously dense, which may obscure small masses. No suspicious masses or microcalcifications. There are post treatment changes of left breast. us Juan Manuel Ho MD MAMMO Final Res ult * COLONOSCOPY (11/19/2023 7:37 AM CDT) 11/19/2023 [...] candidate for conscious sedation. The endoscope [id number] was passed through the anus andadvanced to [...] there are any questions, please contact the advertising operations manager. Moderate Sedation: A time out was performed [...] 7:37 AM Procedure Code(s): --- Professional --- 59042, Colonoscopy, flexible; with biopsy, single or multiple Diagnosis Code(s): --- Professional --- Z12.11, Encounter for screening formalignant neoplasm of colon D12.2, Benign neoplasm of ascending colon K57.30, Diverticulosis of large intestine without perforation or abscess withoutbleeding CPT copyright 2021 [employer]. All rights reserved. The codes documented in this report are preliminary and upon casino banker reviewmay be revised to meet current compliance requirements. Scope In: 8:12:12 AM Scope Withdrawal Time 0 hours 11 minutes 12 seconds Scope Out: 8:27:16 AM us Ruperto Cain MD PROCEDURE ORD Final Res ult * (ABNORMAL) LIPID PANEL W REFLEX MEASURED LDL (10/12/2021 7:27 AM MACHINE PROGRAMMER) CHOLESTEROL,TOTAL 203(H) 100 - 199 mg/dL 10/12/2021 5:24 PM MACHINE PROGRAMMER [facility] TRIGLYCERIDES 139 <150 mg/dL 10/12/2021 5:24 PM MACHINE PROGRAMMER [facility] HDL CHOLESTEROL 55 >40 mg/dL 5:24 PM MACHINE PROGRAMMER [facility] NON-HDL CHOLESTEROL 148(H) <145 mg/dl 10/12/2021 5:24 PM MACHINE PROGRAMMER [facility] CHOL/HDL RATIO 3.69 <4.50 10/12/2021 5:24 PM MACHINE PROGRAMMER [facility] LDL CHOLESTEROL 120 <=130 mg/dL 10/12/2021 5:24 PM MACHINE PROGRAMMER [facility] VLDL CHOLESTEROL 28 <=30 mg/dL 10/12/2021 5:24 PM MACHINE PROGRAMMER [facility] PROVIDER ORDERED STATUS FASTING 10/12/2021 5:24 PM MACHINE PROGRAMMER [facility] Blood BLOOD SPECIMEN / Unknown Venipuncture / Unknown 10/12/2021 7:27 AM MACHINE PROGRAMMER 10/12/2021 7:27 AM MACHINE PROGRAMMER Juan Manuel Ho MD CHEMISTRY Final Res ult [facility] [address] [place] [address], [place] * ANTI HCV (10/12/2021 7:27 AM MACHINE PROGRAMMER) HEPATITIS C ANTIBODY Non-React mariola Non-React mariola 10/12/2021 5:44 PM MACHINE PROGRAMMER [facility] Comment:Antibodies to HCV no t detected; does not exclude the possibility of exposure to HCV. Blood BLOOD SPECIMEN / Unknown Venipuncture / Unknown 10/12/2021 7:27 AM MACHINE PROGRAMMER 10/12/2021 7:27 AM MACHINE PROGRAMMER Juan Manuel Ho MD SEND OUTS Final Res ult [facility] [address] [place] [address], [place] * STONE FINISHER THIN PREP PAP SCREEN IMAGED (10/01/2021 8:11 AM MACHINE PROGRAMMER) Case Report Gynecologic Cytology Report Case: [id number] Authorizing Provider: Juan Manuel Ho MD Collected: 10/01/2021 0811 Ordering Location: [facility] Received: 10/01/2021 0811 Clinic First Screen: Mary Jo Hanson Specimen: STONE FINISHER ThinPrep Vial Screening, Cervical 10/09/2021 3:01 PM MACHINE PROGRAMMER [facility] INTERPRETATION/ RESULT NEGATIVE FOR INTRAEPITHELIAL LESION OR MALIGNANCY (NIL) (none) 10/09/2021 3:01 PM MACHINE PROGRAMMER [facility] [employer] [facility] IMEN ADEQUACY Satisfactory for evaluation No endocervical component seen 10/09/2021 3:01 PM MACHINE PROGRAMMER [facility] [employer] EN[facility]AL LAB[facility]ATORY HPV REQUEST HPV if ASCUS 10/09/2021 3:01 PM MACHINE PROGRAMMER [facility] [employer] [facility] Date of LMP NA 10/09/2021 3:01 PM MACHINE PROGRAMMER [facility] [employer] [facility] Last Pap Date 2014 10/09/2021 3:01 PM MACHINE PROGRAMMER [facility] [employer] [facility] Last Pap Result NIL 3:01 PM MACHINE PROGRAMMER [facility] [employer] [facility] Abnormal Pap or [place] Bx in last 5 years No 10/09/2021 3:01 PM MACHINE PROGRAMMER [facility] [employer] [facility] Menstrual Status Postmenopausal 10/09/2021 3:01 PM MACHINE PROGRAMMER [facility] [place] Bx Done Today No 10/09/2021 3:01 PM MACHINE PROGRAMMER [facility] [employer] [facility]- [facility] Additional Information None given 10/09/2021 3:01 PM MACHINE PROGRAMMER [facility] [employer] [facility] Comment: Cytology is screened at [facility], Central Laboratory - [address], [place] [address] and [facility] - [address], [place] [address] and [facility] - [address] [place] [address] [facility] at [facility] - [address], [place] [address] Automated Review Successful 10/09/2021 3:01 PM MACHINE PROGRAMMER [facility] ENTRAL LABORATORY Comment:Specimen processed s uccessfully by automated roustabout crew pusher device, ThinPrep Imaging System, [employer] Note The pap test is a screening technique, not a diagnostic procedure. It is used primarily to screen for squamous cancers and precursor lesions. Published studies have shown that it is subject to both false negative and false positive results. The pap test should not be used as the sole means to diagnose or exclude pre-malignant and malignant lesions. 10/09/2021 3:01 PM MACHINE PROGRAMMER [facility] ENTRAL LABORATORY Other (Cervical) Non-Blood / Unknown 10/01/2021 8:11 AM MACHINE PROGRAMMER 10/01/2021 8:11 AM MACHINE PROGRAMMER us Juan Manuel Ho MD PATHOLOGY/CYTOLOGY Final Result [facility] [address] [place] [address], [place] from Last 3 Months or Most Recently Relevant to Health Maintenance Insurance MEDICARE PART A HB ONLY [facility] MEDICARE PB ONLY Care Teams Binder Caser Relationship Specialty Start Date End Date Juan Manuel Ho MD [address] [place] [address] PCP - General Family Practice 02/06/23
--- OUTSIDE RECORDS SUMMARY | 2024-10-11 10:43 | XMS_ITS | Clinical Summary ---
Author Organization [facility] Address [address] [place] [address] Care Team Providers Care Interactive Project Manager Name Role Phone No Ref-Primary, Physician Primary Care Provider Allergies Active Allergy Reactions Criticality Noted Date Comments Nickel Hives 08/30/2008 Copper and cobalt also No Clinical Screening - See Comments Other (See Comments) 08/30/2008 Was tested at [place] in 1979. (See letter scanned 08/2008) Penicillin G 10/28/2016 Sodium Lauryl Sulfate Other (See Comments) 02/15 Mouth sores Streptococci 10/28/2016 Streptococcus Antigen Other (See Comments) 08/18 Was tested at [place] in 1979. (See letter scanned 08/2008) Sulfa Antibiotics Nausea 01/03/2006 Yeast Other (See Comments) 08/30/2008 Was tested at [place] in 1979. (See letter scanned 08/2008) Zolpidem Unknown 02/27/2011 Medications glucosamine-cho ndroitin 500-400 MG CAPS per capsule Take 1 capsule by mouth 02/27/2011 Active Active Problems No known active problems Immunizations Name Administration Dates Next Due [id number] Novel Flu 08/26/2009 Influenza (H1N1) 08/24/2009 Influenza [...] Plan of Treatment Not on file Insurance [facility] Care Teams Interactive Project Manager Relationship Specialty Start Date End Date No Ref-Primary, Physician PCP - General 11/10/18
--- OUTSIDE RECORDS SUMMARY | 2024-10-11 10:43 | XMS_ITS | Clinical Summary ---
Author Organization [facility] Address [address] [place] [address] Care Team Providers Care Steam Tender Name Role Phone Unavailable Primary Care Provider Unavailabl e Source Comments Patient records contain information from all sites at [facility]. For routine questions regarding patient records, call [phone] during business hours, M-F 8:00 AM - 5:00 PM Central Time. 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 Kelsie grade: III of III; [place] score: 8 of 9. Stage IA anatomic, [...] your living situation today? I have a [facility] place to live 07/15/2023 Comments Unknown Sex and Gender Information Value Date Recorded Sex Assigned at Female 07/15/2023 7:17 PM PAPER CUP MACHINE OPERATOR Legal Sex Female 7:18 AM PAPER CUP MACHINE OPERATOR Gender Identity Female 07/15/2023 7:17 PM PAPER CUP MACHINE OPERATOR Sexual Orientation Straight 07/15/2023 7: 17 PM PAPER CUP MACHINE OPERATOR Last Filed Vital Signs Vital Sign Reading Time Taken Comments Blood Pressure 125/49 07/08/2023 12:50 PM PAPER CUP MACHINE OPERATOR Pulse 75 07/08/2023 12:50 PM PAPER CUP MACHINE OPERATOR Temperature 36.2 C (97.1 F) 07/23/2023 1:12 PM PAPER CUP MACHINE OPERATOR Respiratory Rate - - Oxygen Saturation - - Inhaled Oxygen Concentration - - Weight 86.3 kg (190 lb 4.1 oz) 07/23/2023 1:12 P M PAPER CUP MACHINE OPERATOR Height - - Body Mass Index - - Plan of Treatment Health Maintenance Due Date Last Done Comments Bone Density Scan (Osteoporosis Screen) 1959 CT Colonography 1959 Cervical/Vaginal Cancer Screening 1959 Cologuard 1959 FIT 1959 HIV Screening 1960 Hepatitis C Screening 1960 Pneumococcal vaccine (50+ years) (2 of 2 - PPSV23) 04/01/2018 02/04/2018 COVID-19 Vaccine ( season) 2024 06/02/2023, 02/24/2023, 06/11/2022, Additional history exists Influenza Vaccine (#1) 2024 , 04/12/2022, 05/05/2021, Additional history exists Depression Screening (Annual PHQ-2) 08/18/2024 Fall Risk Screen (Annual) 08/18/2024 Mammogram 01/29/2025 01/30/2024, 01/16, 01/28/2023, Additional history [...] CDT) Narrative [facility] - 07/01/2023 11:30 AM PAPER CUP MACHINE OPERATOR This order has been created and [...] URBAN Relation to Subscriber:Spouse Name:RANJITH URBAN Address: [address] [place] [address] Payer ID:Not on file Type:PPO Address: [facility] [id number] [place] [id number]
--- OUTSIDE RECORDS SUMMARY | 2024-10-11 10:43 | XMS_ITS ---
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 Kelsie grade: III of III; [place] score: 8 of 9. Stage IA anatomic, Stage I B Prognostic, T1b No Monofilament, triple negative grade 3-. Seeing Dr. Elias for Oncology. Current Treatment and Therapy Plans No current plan information found. Past Treatment and Therapy Plans No past plan information found. Past Radiation Episodes * 3D SULFATE DRIER MACHINE OPERATOR: Left Chest wallOverview* First Treatment Date Last Treatment Date Treatment Site Technique Goal Episode Provider 07/15/2023 07/25/2023 Left Chest wall 3D SULFATE DRIER MACHINE OPERATOR Curative Gr Jade segundo, R.N. * Linked Problems Malignant Neoplasm Of Breast Upper Outer Quadrant Female Left Treatment Courses* Course 1xBreast 07/15/2023 - 07/25/2023 Treatment Period Fraction Dose Fractions Total Dose Plans Planned [id number] 07/22/2023 - 07/25/2023 250 cGy 1 ,000 cGy [id number] 07/15/2023 - 07/21/2023 520 cGy 2 ,600 cGy Reference Points Delivered [id number] 07/15/2023 - 07/25/2023 3,600 cGy
--- NOTE | 2024-10-11 10:59 | CRLHL7_ITS ---
For Patients: As a result of the Century Cures Act, medical imaging exams and procedure reports are released immediately into your electronic medical record. You may view this report before your referring provider. If you have questions, please contact your health care provider. INDICATION: Cough and shortness of breath. TECHNIQUE: Chest 2 views. COMPARISON: None. FINDINGS: Cardiovascular and mediastinum: Heart size is normal. Unremarkable mediastinum. Lungs and pleural spaces: Lungs are clear. No sign of infiltrate or mass. No sign of pleural effusion. No pneumothorax. Bones and soft tissues: No significant findings. IMPRESSION: Negative chest. No sign of CHF or pneumonia. Dictated by Oseas Perez MD @ 10/11/2024 12:07:38 PM (Electronically Signed)
--- NOTE | 2024-10-11 10:59 | ED.GENADULT ---
HPI - General Adult General Chief complaint: Shortness of Breath/Dyspnea Stated complaint: Shortness of breath Time Seen by Provider: 10/11/24 10:42 History of Present Illness HPI narrative: This 64-year-old female comes in reporting upper respiratory symptoms that began 6 days ago. She went to urgent care today because she was feeling more short of breath and feels like it is settle down into her chest. She has a history of breast cancer but there is no active treatment going on and no recurrence that she knows of. She also has a more remote history of pneumonia. She arrives here with normal vital signs but her oximetry is down a bit at around 91-92% on room air. She does not normally use oxygen and does not have a prior history of chronic respiratory disease. Related Data Home Medications ?Medication ?Instructions ?Recorded ?Confirmed cholecalciferol (vitamin D3) 10 400 unit PO DAILY 02/20/23 10/07/24 mcg (400 unit) tablet acetaminophen 500 mg tablet 500 mg PO Q6H PRN 06/30/23 10/07/24 (Tylenol Extra Strength) Previous Rx's ?Medication ?Instructions ?Recorded methylprednisolone 4 mg tablets in See Rx Instructions PO .COMPLEX 10/11/24 a dose pack (Medrol (Pranav)) #21 ea Allergies Allergy/AdvReac Type Severity Reaction Status Date / Time ciprofloxacin Allergy Mild Joint Pain Verified 10/07/24 09:45 nickel Allergy Mild Hives Verified 10/07/24 09:45 Sulfa (Sulfonamide Allergy Mild Nausea Verified 10/07/24 09:45 Antibiotics) zolpidem (From Ambien) Allergy Mild Headache Verified 10/07/24 09:45 sodium lauryl sulfate Allergy Unknown Verified 10/07/24 09:45 Streptococcus vaccine Allergy Unknown Verified 10/07/24 09:45 adhesive Allergy Verified 10/07/24 09:45 copper Allergy Verified 10/07/24 09:45 Penicillins Allergy Hives Verified 10/07/24 09:45 ondansetron (From Zofran) AdvReac Severe Headache Verified 10/07/24 09:45 gluten AdvReac Mild Verified 10/07/24 09:45 sumatriptan (From Imitrex) AdvReac Mild Verified 10/07/24 09:45 Review of Systems Status of ROS: Reports: 10 or more systems reviewed and unremarkable except as noted in History and below Narrative: Constitutional: No fevers, no weight gain or loss. Eyes: No discharge. No vision changes. HENT: No congestion, no sore throat, no ear pain. Cardiovascular: No chest pain, no palpitations. Respiratory: Patient reports a cough and some shortness of breath. Gastrointestinal: No abdominal pain, no vomiting, no diarrhea. Genitourinary: No dysuria, no hematuria. Musculoskeletal: Normal range of motion. Skin: No rashes, no pruritis. Neurological: No dizziness, weakness, sensory change, speech change. Endo/Heme/Allergies: No bruising or bleeding. No polydipsia. Pysch: no suicidality, no anxiety, no insomnia. All other systems reviewed and are negative. [facility] Medical History (Updated 10/11/24 @ 12:36 by Kane Payton MD) Breast cancer ?C50.919 - Malignant neoplasm of unspecified site of unspecified female breast (ICD-10) Depression ?F32.A - Depression, unspecified (ICD-10) Allergic rhinitis ?J30.9 - Allergic rhinitis, unspecified (ICD-10) Surgical History (Updated 12/18/23 @ 16:48 by Lulú Lai MD) H/O lumpectomy ?Z98.890 - Other specified postprocedural states (ICD-10) S/P section ?Z98.891 - History of uterine scar from previous surgery (ICD-10) S/P renetta ?Z90.49 - Acquired absence of other specified parts of digestive tract (ICD-10) Social History (Updated 12/18/23 @ 16:46 by Lulú Lai MD) Narrative: Lives with Ranjith (would be MDM if needed). Homemaker. Nonsmoker, no ETOH, requests Full Code status. What is your current living situation?: I presently have a place to live Problems where you live: no known problems Problems where you live details: n/a In the past 12 months, utilities in danger of being shut off: no In past 12 months, lack of transportation kept you from medical appts, meetings, work, or getting things needed for daily living: no In the past 12 mos, have been you worried that your food would run out before you had money to buy more?: never true In the past 12 mos, the food you bought just didn't last and you didn't have money to buy more?: never true Highest level of school completed/degree received: Bachelor's degree Smoking Status: Former smoker How often do you have a drink containing alcohol: never How often do you have six or more drinks on one occasion: Never AUDIT-C Alcohol total score: 0 Non-prescribed substance use: denies use Caffeine: Yes How often does anyone, including family, friends and others, physically hurt you: never How often does anyone, including family, friends and others, insult or talk down to you: never How often does anyone, including family, friends and others, threaten you with harm: never How often does anyone, including family, friends and others, scream or curse at you: never Are you using contraception or practicing any form of control: No service: No Exam Narrative: Exam Narrative: Constitutional: Well-developed, well-nourished, no acute distress. HEENT: Normocephalic, atraumatic. Neck: Normal range of motion. Nontender. Supple. Heart: Regular. No murmurs. Normal rate. Intact distal pulses. Lungs: Clear to auscultation. No chest discomfort. No wheezes, rhonchi, or rales. Abdomen: Normal bowel sounds. Nontender. No rebound tenderness. Genitalia: Deferred. Back: No midline tenderness. Normal range of motion. Extremities: Normal range of motion. No injury. Skin: Intact. No rash. Warm. No erythema or pallor. Neurologic: No altered sensation. No weakness. Alert and oriented. Psychiatric: No suicidality. No anxiety or depression. No insomnia. Nursing notes and vitals signs are reviewed. Const: Vital Signs, click to edit/add: Vital Signs - 24 hr 10/11/24 10:46 10/11/24 11:39 10/11/24 11:45 Temperature 98.5 F Pulse Rate 88 88 Pulse Rate [Pulse Oximeter] 101 H Respiratory Rate 20 Blood Pressure [Ri ght Upper Arm] 143/82 H Pulse Oximetry 91 89 88 Oxygen Delivery Me thod Room Air Oxygen Flow Rate 10/11/24 12:00 10/11/24 12:06 10/11/24 12:07 Temperature Pulse Rate 94 Pulse Rate [Pulse Oximeter] Respiratory Rate Blood Pressure [Ri ght Upper Arm] Pulse Oximetry 88 93 94 Oxygen Delivery Me thod Room Air Nasal Cannula Oxygen Flow Rate 2 10/11/24 12:15 10/11/24 12:24 Temperature Pulse Rate 86 Pulse Rate [Pulse Oximeter] Respiratory Rate Blood Pressure [Ri ght Upper Arm] Pulse Oximetry 94 94 Oxygen Delivery Me thod Nasal Cannula Oxygen Flow Rate 2 Course Vital Signs Vital signs: Initial Vital Signs Temperature 98.5 F 10/11/24 10:46 Temperature Source Temporal Artery Scan 10/11/24 10:46 Pulse Rate 101 H 10/11/24 10:46 Respiratory Rate 20 10/11/24 10:46 Blood Pressure 143/82 H 10/11/24 10:46 Blood Pressure Mean 102 10/11/24 10:46 Blood Pressure Position Sitting 10/11/24 10:46 Pulse Oximetry 91 10/11/24 10:46 Oxygen Delivery Method Room Air 10/11/24 10:46 Vital Signs Temperature 98.5 F 10/11/24 10:46 Pulse Rate 101 H 10/11/24 10:46 Respiratory Rate 20 10/11/24 10:46 Blood Pressure 143/82 H 10/11/24 10:46 Pulse Oximetry 91 10/11/24 10:46 Oxygen Delivery Method Room Air 10/11/24 10:46 Temperature 98.5 F 10/11/24 10:46 Pulse Rate 86 10/11/24 12:15 Respiratory Rate 20 10/11/24 10:46 Blood Pressure 143/82 H 10/11/24 10:46 Pulse Oximetry 94 10/11/24 12:24 Oxygen Delivery Method Nasal Cannula 10/11/24 12:24 Oxygen Flow Rate 2 10/11/24 12:24 Medications Administered Medications: Discontinued Medications Generic Name Dose Route Start Last Admin Trade Name Freq PRN Reason Stop Dose Admin Dexamethasone 10 mg 10/11/24 10:59 10/11/24 11:34 Dexamethasone 10 Mg/Ml Inj PO 10/11/24 11:00 10 mg ONCE ONE Administration Medical Decision Making MDM Narrative Medical decision making narrative: This patient comes in reporting upper respiratory symptoms and feeling more short of breath. She arrives with oximetry around 91-92% on room air and had a normal heart rate. Chest x-ray and nasal pharyngeal swabs are negative for pneumonia and viruses tested. She did appear to desaturate a bit into the upper 80s% and respiratory therapy came as she was administered oxygen temporarily. She now is back to 93% on room air. She did receive an oral dose of dexamethasone 10 mg. She is okay to be discharged home. I did provide a prescription for Medrol Dosepak. The patient is agreeable to this plan and understands that she can return if worsening. Lab Data Labs: Lab Results 10/11/24 Range/Units 10:52 SARS-CoV-2 (PCR) Negative SARS-CoV-2 (Negative) Influenza Type A (PCR) Negative PCR FLU A (Negative) Influenza Type B (PCR) Negative PCR FLU B (Negative) RSV (PCR) Negative PCR RSV (Negative) Imaging Data Chest x-ray: Radiologist's impression: Negative chest. No sign of CHF or pneumonia. ECG Data Attestation: I personally reviewed and interpreted this ECG as follows: Interpretation: Normal sinus rhythm with frequent PVCs. Rate is 93 beats per minute. There are no ST or T-wave abnormalities. Discharge Plan Discharge Clinical Impression: Acute upper respiratory infection Patient Disposition: Home, Self-Care Condition: Stable Additional Instructions: Take medication as prescribed. Use [id number] medicines also as needed and directed. Follow up with MD return if worsening. Prescriptions: New methylprednisolone [Medrol (Pranav)] 4 mg tablets,dose pack See Rx Instructions .ROUTE .COMPLEX Qty: 21 0RF Rx Instructions: orally per package directions No Action cholecalciferol (vitamin D3) 10 mcg (400 unit) tablet 400 unit PO DAILY Rx Instructions: orally every day; acetaminophen [Tylenol Extra Strength] 500 mg tablet 500 mg PO Q6H PRN Follow Up/Referrals: Juan Manuel Chase MD [Primary Care Provider] - Stand Alone Forms: SMS Assist Info Instructions
--- OUTSIDE RECORDS SUMMARY | 2024-10-11 11:21 | XMS_ITS ---
Author Organization [facility] Address [address] [place] [address] Care Team Providers Care Product Introduction Manager Name Role Phone Unavailable Primary Care [...] comment a. Kelsie grade: III of III; [place] score: 8 of 9. Stage IA anatomic, Stage I B Prognostic, T1b No Monofilament, triple negative grade 3-. Seeing Dr. Elias for Oncology. Current Treatment and Therapy Plans No current plan information found. Past Treatment and Therapy Plans No past plan information found. Past Radiation Episodes * 3D BUSINESS ACCOUNT MANAGER: Left Chest wallOverview* First Treatment Date Last Treatment Date Treatment Site Technique Goal Episode Provider 07/15/2023 07/25/2023 Left Chest wall 3D BUSINESS ACCOUNT MANAGER Curative Gr Jade segundo, R.N. * Linked Problems Malignant Neoplasm Of Breast Upper Outer Quadrant Female Left Treatment Courses* Course 1xBreast 07/15/2023 - 07/25/2023 Treatment Period Fraction Dose Fractions Total Dose Plans Planned [id number] 07/22/2023 - 07/25/2023 250 cGy 1 ,000 cGy [id number] 07/15/2023 - 07/21/2023 520 cGy 2 ,600 cGy Reference Points Delivered [id number] 07/15/2023 - 07/25/2023 3,600 cGy
--- OUTSIDE RECORDS SUMMARY | 2024-10-11 11:21 | XMS_ITS | Clinical Summary ---
Author Organization [facility] Address [address] [place] [address] Care Team Providers Care Controls Design Engineer Name Role Phone Unavailable Primary Care Provider Unavailabl e Source Comments Patient records contain information from all sites at [facility]. For routine questions regarding patient records, call [phone] during business hours, M-F 8:00 AM - 5:00 PM Central Time. Record requests for emergency care only can be directed to [phone] at any time.[facility] Medications erythromycin (ROMYCIN) 5 mg/gram (0.5 [...] comment a. Kelsie grade: III of III; [place] score: 8 of 9. Stage IA anatomic, [...] your living situation today? I have a [facility] place to live 07/15/2023 Comments Unknown Sex and Gender Information Value Date Recorded Sex Assigned at Female 07/15/2023 7:17 PM THERAPY ASSISTANT Legal Sex Female 7:18 AM THERAPY ASSISTANT Gender Identity Female 07/15/2023 7:17 PM THERAPY ASSISTANT Sexual Orientation Straight 07/15/2023 7: 17 PM THERAPY ASSISTANT Last Filed Vital Signs Vital Sign Reading Time Taken Comments Blood Pressure 125/49 07/08/2023 12:50 PM THERAPY ASSISTANT Pulse 75 07/08/2023 12:50 PM THERAPY ASSISTANT Temperature 36.2 C (97.1 F) 07/23/2023 1:12 PM THERAPY ASSISTANT Respiratory Rate - - Oxygen Saturation - - Inhaled Oxygen Concentration - - Weight 86.3 kg (190 lb 4.1 oz) 07/23/2023 1:12 P M THERAPY ASSISTANT Height - - Body Mass Index - [...] CDT) Narrative IIMS - 07/01/2023 11:30 AM THERAPY ASSISTANT This order has been created and auto-finalized [...] Most Recently Relevant to Health Maintenance Insurance [facility] Member Subscriber Plan / Payer (Ef fective 2022-Present) Name:YANG URBAN Relation to Subscriber:Spouse Name:RANJITH URBAN Address: [address] [place] [address] Payer ID:Not on file Type:PPO Address: [facility] [id number] [place] [id number]
--- OUTSIDE RECORDS SUMMARY | 2024-10-11 11:21 | XMS_ITS | Clinical Summary ---
Author Organization [facility] Address [address] [place] [id number] Care Team Providers Care Assault Amphibious Vehicle Crewman Name Role Phone No Ref-Primary, Physician Primary Care Provider Allergies Active Allergy Reactions Criticality Noted Date Comments Nickel Hives 08/30/2008 Copper and cobalt also No Clinical Screening - See Comments Other (See Comments) 08/30/2008 Was tested at [facility] in 1979. (See letter scanned 08/2008) Penicillin G 10/28/2016 Sodium Lauryl Sulfate Other (See Comments) 02/15 Mouth sores Streptococci 10/28/2016 Streptococcus Antigen Other (See Comments) 08/18 Was tested at [facility] in 1979. (See letter scanned 08/2008) Sulfa Antibiotics Nausea 01/03/2006 Yeast Other (See Comments) 08/30/2008 Was tested at [facility] in 1979. (See letter scanned 08/2008) Zolpidem Unknown 02/27/2011 Medications glucosamine-cho ndroitin 500-400 MG CAPS per capsule Take 1 capsule by mouth 02/27/2011 Active Active Problems No known active problems Immunizations Name Administration Dates Next Due [id number] Novel Flu 08/26/2009 Influenza (H1N1) 08/24/2009 Influenza [...] Plan of Treatment Not on file Insurance [facility] [place] [address] Care Teams Assault Amphibious Vehicle Crewman Relationship Specialty Start Date End Date No Ref-Primary, Physician PCP - General 11/10/18
--- OUTSIDE RECORDS SUMMARY | 2024-10-11 11:21 | XMS_ITS | Clinical Summary ---
Author Organization [employer] [facility] Address [address] [place] [id number] Care Team Providers Care Live Source Operator Name Role Phone Juan Manuel Ho MD Primary Care Provider [phone] Allergies Active Allergy Reactions Criticality Noted Date Comments Zolpidem Headache 02/27/2011 Ciprofloxacin Arthralgia 01/09/2023 Pain head to toe. Difficulty walking. Nickel Hives 08/30/2008 Copper and cobalt also Penicillins Hives 01/03/2006 Sodium Lauryl Sulfate Other - Describe I n Comment Field 02/27/2011 Mouth sores Streptococcus Other - Describe In Comment Field 08/30/2008 Was skin tested at [facility] in 1979. (See letter scanned 08/2008) Sulfa (Sulfonamide Antibiotics) Nausea Only 01/03/2006 Yeast, Dried Other - Describe In Comment Field 08/30/2008 Was tested at [facility] in 1979. (See letter scanned 08/2008) Ondansetron [...] December 2023: CAP Strep pneumonia admitted to [facility]. 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 Kelsie grade: III of III; [place] score: 8 of 9. Stage IA anatomic, [...] Department Care Team Description 10/11/2024 9:45 AM NURSE PRACTITIONER HOME ASSESSMENTS Office Visit [facility] [address] [address] Marion Lindsey PA Cough 10/11/2024 Travel from Last 3 Months Immunizations Name Administration Dates Next Due COVID-19 vaccine ([employer] 30mcg/0.3mL) 12YO+ BIVALENT PF, MDV 02/24/2023 COVID-19 vaccine ([employer] 30mcg/0.3mL) P F, MDV 12/08/2020,11/17/2020 Influenza A [...] on file Legal Sex Female 7:15 AM NURSE PRACTITIONER HOME ASSESSMENTS Gender Identity Not on file Sexual Orientation Not on file 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 Not on file Not on file Not on file Obstetrics History Last Filed Vital Signs Vital Sign Reading Time Taken Comments Blood Pressure 154/77 10/11/2024 9:54 AM NURSE PRACTITIONER HOME ASSESSMENTS Pulse 79 10/11/2024 9:54 AM NURSE PRACTITIONER HOME ASSESSMENTS Temperature 36.3 C (97.4 F) 10/11/2024 9:54 AM NURSE PRACTITIONER HOME ASSESSMENTS Respiratory Rate 20 10/11/2024 9:54 AM NURSE PRACTITIONER HOME ASSESSMENTS Oxygen Saturation 92% 10/11/2024 9:54 AM NURSE PRACTITIONER HOME ASSESSMENTS Inhaled Oxygen Concentration - - Weight 84.2 kg (185 lb 9.6 oz) 12/22/2023 11:38 AM CDT Height 169.2 cm (5' 6.61) 10/16/2023 8:00 AM CS T Body Mass Index 29.41 10/16/2023 8:00 AM NURSE PRACTITIONER HOME ASSESSMENTS Plan of Treatment Health Maintenance Due Date [...] cancer ANTI HCV Routine 10/12/2021 7:27 AM NURSE PRACTITIONER HOME ASSESSMENTS Need for hepatitis C screening test LIPID PANEL W REFLEX MEASURED LDL Routine 10/12/2021 7:27 AM NURSE PRACTITIONER HOME ASSESSMENTS Screening cholesterol level PUTTY TINTER MAKER THIN PREP PAP SCREEN IMAGED Routine 10/01/2021 8:11 AM NURSE PRACTITIONER HOME ASSESSMENTS Cervical cancer screening from Last 3 Months [...] care provider. XR MAMMO JILLIAN BILAT SCREEN [[id number]] CLINICAL HISTORY: This is an asymptomatic 63 y.o. patient. INDICATION FOR EXAM: Mammogram Screening. TECHNIQUE: CC & MLO views were obtained. This study was evaluated with the assistance of Computer-Aided Detection. Breast Tomosynthesis was used in interpretation. COMPARISON FILMS: Yes 01/23/23 [facility] 10/01/21 [facility] FINDINGS: The breasts are heterogeneously dense, which [...] candidate for conscious sedation. The endoscope [id number] was passed through the anus andadvanced to [...] there are any questions, please contact the evaluation engineer. Moderate Sedation: A time out was performed [...] 7:37 AM Procedure Code(s): --- Professional --- 48907, Colonoscopy, flexible; with biopsy, single or multiple Diagnosis Code(s): --- Professional --- Z12.11, Encounter for screening formalignant neoplasm of colon D12.2, Benign neoplasm of ascending colon K57.30, Diverticulosis of large intestine without perforation or abscess withoutbleeding CPT copyright 2021 [employer]. All rights reserved. The codes documented in this report are preliminary and upon locum tenens reviewmay be revised to meet current compliance requirements. Scope In: 8:12:12 AM Scope Withdrawal Time 0 hours 11 minutes 12 seconds Scope Out: 8:27:16 AM us Ruperto Cain MD PROCEDURE ORD Final Res ult * (ABNORMAL) LIPID PANEL W REFLEX MEASURED LDL (10/12/2021 7:27 AM NURSE PRACTITIONER HOME ASSESSMENTS) CHOLESTEROL,TOTAL 203(H) 100 - 199 mg/dL 10/12/2021 5:24 PM NURSE PRACTITIONER HOME ASSESSMENTS [facility] TRIGLYCERIDES 139 <150 mg/dL 10/12/2021 5:24 PM NURSE PRACTITIONER HOME ASSESSMENTS [facility] HDL CHOLESTEROL 55 >40 mg/dL 5:24 PM NURSE PRACTITIONER HOME ASSESSMENTS [facility] NON-HDL CHOLESTEROL 148(H) <145 mg/dl 10/12/2021 5:24 PM NURSE PRACTITIONER HOME ASSESSMENTS [facility] CHOL/HDL RATIO 3.69 <4.50 10/12/2021 5:24 PM NURSE PRACTITIONER HOME ASSESSMENTS [facility] LDL CHOLESTEROL 120 <=130 mg/dL 10/12/2021 5:24 PM NURSE PRACTITIONER HOME ASSESSMENTS [facility] VLDL CHOLESTEROL 28 <=30 mg/dL 10/12/2021 5:24 PM NURSE PRACTITIONER HOME ASSESSMENTS [facility] PROVIDER ORDERED STATUS FASTING 10/12/2021 5:24 PM NURSE PRACTITIONER HOME ASSESSMENTS [facility] Blood BLOOD SPECIMEN / Unknown Venipuncture / Unknown 10/12/2021 7:27 AM NURSE PRACTITIONER HOME ASSESSMENTS 10/12/2021 7:27 AM NURSE PRACTITIONER HOME ASSESSMENTS Juan Manuel Ho MD CHEMISTRY Final Res ult [facility] [address] [place] [address], [place] * ANTI HCV (10/12/2021 7:27 AM NURSE PRACTITIONER HOME ASSESSMENTS) HEPATITIS C ANTIBODY Non-React mariola Non-React mariola 10/12/2021 5:44 PM NURSE PRACTITIONER HOME ASSESSMENTS [facility] Comment:Antibodies to HCV no t detected; does not exclude the possibility of exposure to HCV. Blood BLOOD SPECIMEN / Unknown Venipuncture / Unknown 10/12/2021 7:27 AM NURSE PRACTITIONER HOME ASSESSMENTS 10/12/2021 7:27 AM NURSE PRACTITIONER HOME ASSESSMENTS Juan Manuel Ho MD SEND OUTS Final Res ult [facility] [address] [place] [address], [place] * PUTTY TINTER MAKER THIN PREP PAP SCREEN IMAGED (10/01/2021 8:11 AM NURSE PRACTITIONER HOME ASSESSMENTS) Case Report Gynecologic Cytology Report Case: [id number] Authorizing Provider: Juan Manuel Ho MD Collected: 10/01/2021 0811 Ordering Location: [facility] Received: 10/01/2021 0811 Clinic First Screen: Mary Jo Hanson Specimen: PUTTY TINTER MAKER ThinPrep Vial Screening, Cervical 10/09/2021 3:01 PM NURSE PRACTITIONER HOME ASSESSMENTS [facility] INTERPRETATION/ RESULT NEGATIVE FOR INTRAEPITHELIAL LESION OR MALIGNANCY (NIL) (none) 10/09/2021 3:01 PM NURSE PRACTITIONER HOME ASSESSMENTS [facility] [employer] [facility] IMEN ADEQUACY Satisfactory for evaluation No endocervical component seen 10/09/2021 3:01 PM NURSE PRACTITIONER HOME ASSESSMENTS [facility] [employer] HPV REQUEST HPV if ASCUS 10/09/2021 3:01 PM NURSE PRACTITIONER HOME ASSESSMENTS [facility] [employer] [facility] Date of LMP NA 10/09/2021 3:01 PM NURSE PRACTITIONER HOME ASSESSMENTS [facility] [employer] [facility] Last Pap Date 2014 10/09/2021 3:01 PM NURSE PRACTITIONER HOME ASSESSMENTS [facility] [employer] [facility] Last Pap Result NIL 3:01 PM NURSE PRACTITIONER HOME ASSESSMENTS [facility] [employer] [facility] Abnormal Pap or [place] Bx in last 5 years No 10/09/2021 3:01 PM NURSE PRACTITIONER HOME ASSESSMENTS [facility] [employer] [facility] Menstrual Status Postmenopausal 10/09/2021 3:01 PM NURSE PRACTITIONER HOME ASSESSMENTS [facility] [place] Bx Done Today No 10/09/2021 3:01 PM NURSE PRACTITIONER HOME ASSESSMENTS [facility] [employer] [facility] Additional Information None given 10/09/2021 3:01 PM NURSE PRACTITIONER HOME ASSESSMENTS [facility] [employer] [facility] Comment: Cytology is screened at [facility], Central Laboratory - [address], [place] [address] and [facility] - [address], [place] [address] and [facility] - [address] [place] [address] [facility] at [facility] - [address], [place] [address] Automated Review Successful 10/09/2021 3:01 PM NURSE PRACTITIONER HOME ASSESSMENTS [facility] Comment:Specimen processed s uccessfully by automated glove turner device, ThinPrep Imaging System, [employer] Note The pap test is a screening technique, not a diagnostic procedure. It is used primarily to screen for squamous cancers and precursor lesions. Published studies have shown that it is subject to both false negative and false positive results. The pap test should not be used as the sole means to diagnose or exclude pre-malignant and malignant lesions. 10/09/2021 3:01 PM NURSE PRACTITIONER HOME ASSESSMENTS [facility] Other (Cervical) Non-Blood / Unknown 10/01/2021 8:11 AM NURSE PRACTITIONER HOME ASSESSMENTS 10/01/2021 8:11 AM NURSE PRACTITIONER HOME ASSESSMENTS us Juan Manuel Ho MD PATHOLOGY/CYTOLOGY Final Result [facility] [address] [place] [address], [place] from Last 3 Months or Most Recently Relevant to Health Maintenance Insurance MEDICARE PART A HB ONLY [facility] MEDICARE PB ONLY Care Teams Live Source Operator Relationship Specialty Start Date End Date Juan Manuel Ho MD [address] [place] [address] PCP - General Family Practice 02/06/23
[2024-10-11 11:34] LABS: PCR FLU A Negative PCR FLU A (Negative); PCR FLU B Negative PCR FLU B (Negative); PCR RSV Negative PCR RSV (Negative); SARS PCR* Negative SARS-CoV-2 (Negative)
[2024-10-11] MEDS: dexAMETHasone 10 MG/ML inj PO (11:34)
--- NOTE | 2024-10-11 12:48 | RESP.RT ---
Pt seen per RN request. 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 notified.
== END 2024-10-11 12:50 | disposition home or self-care (01) ==
PROVIDERS: Emergency Provider Emergency Medicine Emergency Medical Services; PCP Family Medicine
DX: J06.9 Acute upper respiratory infection, unspecified (principal)
CPT/HCPCS: 71046; 87631; 93005; 99284; J1100

== ENCOUNTER 2025-01-31 08:00 | Outpatient (RCR) | payer MEDICARE, BC, SELFPAY ==
[2025-01-31 08:16] LABS: Hematocrit 42.1 % (33.0-51.0); Hemoglobin* 13.8 gm/dL (12.0-16.0); Immature Granulocytes Abs Auto 0.01 K/uL (0.00-0.30); Immature Granulocytes Pct Auto 0.1 %; Lymphocytes Absolute Auto 2.80 K/uL (0.90-2.90); Mean Corpuscular HGB Conc 33 gm/dL (32-36); Mean Corpuscular Hemoglobin 32 pg (26-34); Mean Corpuscular Volume 97 fL (80-100); RDW Coefficient of Variation % 12.6 % (11.5-15.5); Red Blood Count 4.34 m/uL (4.00-5.20); White Blood Count* 7.63 K/uL (4.50-11.00)
[2025-01-31 08:20] LABS: Slide Review Reflex No
== END 2025-04-05 23:59 | disposition home or self-care (01) ==
LOC: CCIC 08:00
PROVIDERS: Physician Assistant; PCP Family Medicine; Referring Provider Family Medicine; Visit Provider Internal Medicine Hematology & Oncology
DX: C50.912 Malignant neoplasm of unspecified site of left female breast (principal); Z17.1 Estrogen receptor negative status [ER-]
CPT/HCPCS: 36415; 85025; 99213; 99214; G0463

== ENCOUNTER 2025-07-18 08:39 | Outpatient (CLI) | payer MEDICARE, BC, SELFPAY ==
--- NOTE | 2025-07-18 09:15 | CRLHL7_ITS ---
For Patients: As a result of the Cures Act, medical imaging exams and procedure reports are released immediately into your electronic medical record. You may view this report before your referring provider. If you have questions, please contact your health care provider. INDICATION: Nontoxic single thyroid nodule COMPARISON: 07/09/2024 TECHNIQUE: Toussaint scale and color Doppler images were acquired of the thyroid gland. FINDINGS: Heterogeneous nodule left thyroid lobe measures 1.6 x 1.3 x 1.1 cm, TR 4, previously measuring 2.5 x 1.3 x 1.5 cm. Subtle hypoechoic nodule right thyroid lobe measures 7 x 11 x 8 millimeters, previously measuring 10 millimeters, TR 2. Isthmus measures 3.6 millimeters. Thyroid echotexture is heterogeneous. The right lobe measures 5.8 x 2.4 x 2.4 cm and the left lobe measures 6.0 x 2.2 x 2.2 cm in size. The color Doppler images demonstrate normal vascularity. There is no evidence of cervical lymphadenopathy or parathyroid mass. IMPRESSION: Similar morphology of the previously biopsied left thyroid lobe nodule without significant interval change. Dictated by Arnulfo Briceno MD @ 07/18/2025 10:26:06 AM (Electronically Signed)
== END 2025-07-18 08:40 | disposition home or self-care (01) ==
PROVIDERS: PCP Family Medicine; Visit Provider Physician Assistant
DX: E04.1 Nontoxic single thyroid nodule (principal)
CPT/HCPCS: 76536